=== PATIENT | female | born 1955 | race Caucasian/White ===

== ENCOUNTER 2019-07-09 18:16 | Emergency (ER) | payer BC, SELFPAY ==
[2019-07-09 18:17] VITALS: BP 162/105; PULSE 101; RESP 18; TEMP 36.3; O2SAT 96; BMI 30.7
--- NOTE | 2019-07-09 18:32 | ED.DCSUM_ITS ---
History of Present Illness Chief Complaint: GI Bleed Informant: Patient Onset: Today Context: Sudden Onset Timing: Continuous Current Severity: Mild Maximum Severity: Moderate Narrative: The patient is a 64-year-old female with no significant medical history and on no daily medications that presents to the emergency department with bright red blood per rectum. The patient has a history of prior GI bleed thought to be secondary to diverticulosis. She was admitted in 2017 for the same. She underwent colonoscopy which showed evidence of diverticular bleeding, but no other abnormalities. She states that her symptoms returned today. She states she was moving her bowels and noticed bright red blood with clots. She denies any pain. She denies any fevers or chills. She is otherwise been in her normal state of health. Prior similar symptoms: Yes Recent Illness/Hospitalization: No Past Medical History - Allergies and Home Meds Allergies/Adverse Reactions: Allergies No Known Allergies Allergy (Verified 07/09/19 18:20) Primary Care Physician: Paxton Escobedo MD [NON-STAFF] - Prior records reviewed: Yes Past Medical History: None Surgical History: adenoidectomy, - - no egd or colonoscopies, basal cell cancer removed from forehead Smoking Status: Never smoker - Family History Maternal Family History: Reports: Dementia, Heart Disease, Hypertension Paternal Family History: Reports: Heart Disease, Hypertension, - - bladder cancer Review of Systems General: Denies: Chills, Fever, Sweats Eyes: Denies: Visual changes - bilaterally, Diplopia ENT: Denies: Rhinorrhea, Sore throat Cardiovascular: Denies: Chest pain, Palpitations Respiratory: Denies: Dyspnea, Cough, Dyspnea on exertion Gastrointestinal: Reports: Hematochezia. Denies: Abdominal pain, Nausea, Vomiting, Diarrhea, Melena Genitourinary: Denies: Dysuria, Hematuria, Frequency Musculoskeletal: Denies: Back pain, Extremity Pain Skin: Denies: Rash, Wounds Neurological: Denies: Headache, Weakness, Numbness Physical Exam Vital Signs/Narrative: Vital Signs Temp Pulse Resp BP Pulse Ox 07/09/19 18:17 97.3 F L 101 H 18 162/105 H 96 Inital Vital Signs reviewed: Yes General: Well nourished, Well developed, No Acute Distress Head: Normocephalic, Atraumatic Eyes: Perrl, EOMI ENT: Moist mucous membranes, No rhinorrhea Neck: Supple, Nontender Cardiovascular: Regular rate, Regular rhythm, No murmurs Respiratory: No distress, CTA bilaterally, Chest nontender Abdomen: Soft, Nontender, Nondistended, Normal bowel sounds Back: Nontender, Normal Inspection Extremities: Nontender, No edema Skin: Normal color, No rash Neurological: Alert, Oriented x3, Cranial nerves II-XII grossly intact, Normal Strength, Normal Sensation Psychological: Normal affect, Normal Mood Diagnostic/Tx/Re-eval Clinical Impression(s) from Imaging Studies Abdomen/Pelvis CT 07/09/19 19:18 IMPRESSION: 1. 1.3 cm left adrenal nodule most likely representing a benign adenoma, stable in the interval. 2. Small bilateral renal cysts. 3. Small hiatal hernia. 4. Diffuse colonic diverticulosis most severely affecting the sigmoid. There is no evidence of associated diverticulitis. 5. Small fat-containing umbilical hernia. 6. Assessment of bowel is limited as oral contrast was not administered. Electronically Signed: Memo López MD at 20:18 EDT , Service support , Abnormal Lab Results 07/09/19 07/09/19 07/09/19 18:32 18:32 18:32 WBC 15.2 H RBC 4.46 Hgb 13.1 Hct 40.2 MCV 90.1 MCH 29.4 MCHC 32.6 RDW Std Deviation 46.0 H RDW Coeff of Petar 13.9 Plt Count 429 MPV 9.9 Immature Gran % (Auto) 0.500 Neut % (Auto) 52.1 Lymph % (Auto) 38.2 [place] % (Auto) 6.9 Eos % (Auto) 1.9 Baso % (Auto) 0.4 Absolute Neuts (auto) 7.9 H Absolute Lymphs (auto) 5.81 H Nucleated RBC % 0 Differential Comment SCANNED PT 13.5 INR 1.0 APTT 29.5 Sodium 139 Potassium 3.3 L Chloride 106 Carbon Dioxide 24.0 Anion Gap 9 BUN 13 Creatinine 0.67 Estim Creat Clear Calc 67.09 Est GFR (MDRD) Af Amer 114 Est GFR (MDRD) Non-Af 94 BUN/Creatinine Ratio 19.4 Glucose 113 H Lactic Acid Calcium 8.4 L Total Bilirubin 0.20 AST 29 ALT 29 Alkaline Phosphatase 69 Total Protein 7.6 Albumin 3.2 Globulin 4.4 H Albumin/Globulin Ratio 0.7 L Blood Type Antibody Screen 07/09/19 07/09/19 18:32 19:10 WBC RBC Hgb Hct MCV MCH MCHC RDW Std Deviation RDW Coeff of Petar Plt Count MPV Immature Gran % (Auto) Neut % (Auto) Lymph % (Auto) [place] % (Auto) Eos % (Auto) Baso % (Auto) Absolute Neuts (auto) Absolute Lymphs (auto) Nucleated RBC % Differential Comment PT INR APTT Sodium Potassium Chloride Carbon Dioxide Anion Gap BUN Creatinine Estim Creat Clear Calc Est GFR (MDRD) Af Amer Est GFR (MDRD) Non-Af BUN/Creatinine Ratio Glucose Lactic Acid 1.6 Calcium Total Bilirubin AST ALT Alkaline Phosphatase Total Protein Albumin Globulin Albumin/Globulin Ratio Blood Type A POSITIVE Antibody Screen NEGATIVE - Medical Decision Making The patient presents to the emergency department with lower GI bleeding. There was some old gross blood visible on rectal exam, no active bleeding. She does have a history of diverticulosis and has had bleeding from this in the past. She is on no anticoagulants. Orthostatics were obtained were unremarkable. Screening lab work shows a mild leukocytosis, but hemoglobin is normal. The patient underwent CT imaging which shows diverticulosis, but no evidence of diverticulitis. She is had no further bleeding. Again, the patient is not on anticoagulants. She is had no further bleeding. She wants to do outpatient follow-up and at this point, I do feel that this is reasonable. She was counseled that if her bleeding persists or returns that she should return to the emergency department. She is going to follow-up with her GI doctor. Impression 1. Stable lower GI bleed ED Disposition - Plan for ED Patient: Instructions: Diverticulosis Referrals: Paxton Escobedo MD [NON-STAFF] -
[2019-07-09 19:12] LABS: Absolute Lymphocyte Count 5.81 X10^3/uL (0.83-4.51); Absolute Neutrophil Count 7.9 X10^3/uL (2.0-7.7); Basophil# 0.06 X10^3/uL; Basophil% 0.4 % (0-1); Eosinophil# 0.29 X10^3/uL; Eosinophils% 1.9 % (0-5); Hematocrit 40.2 % (37-47); Hemoglobin 13.1 g/dL (12.0-15.0); Lymphocyte # 5.81 X10^3/ul (4.0); Lymphocyte % 38.2 % (19-41); Mean Corp Hgb Conc 32.6 g/dL (32-36); Mean Corpuscular Hgb 29.4 pg (27.0-32.0); Mean Corpuscular Volume 90.1 fL (81-99); Mean Platelet Vol. 9.9 fl (6.2-12.0); Monocyte# 1.05 X10^3/uL; Monocyte% 6.9 % (0-10); NRBC Flagged by Analyzer 0 % (0-5); Neutrophil # 7.92 X10^3/uL (2.7-7.7); Neutrophil % 52.1 % (47-70); POSITIVE DIFFERENTIAL YES; Platelet Count 429 K/mm3 (150-450); RBC Distribution Width CV 13.9 % (11.6-14.6); Red Blood Count 4.46 M/mm3 (4.2-5.4); White Blood Count 15.2 K/mm3 (4.4-11.0)
[2019-07-09 19:14] LABS: Differential Indicated SCAN CRITERIA MET
--- NOTE | 2019-07-09 19:18 | CT_ITS ---
STUDY: CT ABDOMEN AND PELVIS WITH CONTRAST REASON FOR EXAM: Female, 64 years old. RECTAL BLEEDING W/ CLOTS X 4 TODAY H/O DIVERTICULITIS RADIATION DOSAGE (If Supplied By Facility): CTDIvol = ( 14.56 ) mGy, DLP = ( 810.36 ) mGycm TECHNIQUE: Transaxial images were obtained from the dome of the diaphragm to the symphysis pubis without oral contrast. IV 100mL Isovue-300 was administered. Sagittal and coronal images were reconstructed. Individualized dose optimization techniques were used for this CT. COMPARISON: Prior study of 07/13/2016 FINDINGS: The visualized lung bases are unremarkable. The visualized portions of the heart are within normal limits. Normal liver. Normal gallbladder and extrahepatic biliary system. Normal spleen. Normal pancreas. There is a 1.3 cm left adrenal nodule most likely representing a benign adenoma, stable in the interval. There is a 1.1 cm right renal cyst. There is an 8 mm cyst of the left kidney. There is a small hiatal hernia. Normal small intestine. There is diffuse colonic diverticulosis most severely affecting the sigmoid. There is no evidence of associated diverticulitis. The appendix is visualized and appears normal. There are calcified plaques of the abdominal aorta. Normal inferior vena cava. Normal retroperitoneum. Normal urinary bladder. The uterus and adnexal structures are unremarkable. There is a small umbilical hernia containing fat. There is endplate spondylosis of the visualized thoracolumbar spine. CT/Abdomen/Pelvis W IV Cont ONLY IMPRESSION: 1. 1.3 cm left adrenal nodule most likely representing a benign adenoma, stable in the interval. 2. Small bilateral renal cysts. 3. Small hiatal hernia. 4. Diffuse colonic diverticulosis most severely affecting the sigmoid. There is no evidence of associated diverticulitis. 5. Small fat-containing umbilical hernia. 6. Assessment of bowel is limited as oral contrast was not administered. Electronically Signed: Memo López MD at 20:18 EDT , Service support ,
[2019-07-09] MEDS: 0.9% Normal Saline 1,000 ML 1000 ML IV (19:20)
[2019-07-09 19:24] LABS: Partial Thromboplast Time 29.5 Seconds (24.1-36.2); Prothrombin Time (Protime)PT. 13.5 SECONDS (11.7-14.9)
[2019-07-09 19:31] LABS: ALB/GLOB Ratio 0.7 RATIO (0.9-2.4); AST(SGOT) 29 U/L (15-37); Alanine Aminotransfer ALT/SGPT 29 U/L (13-56); Albumin, Serum 3.2 g/dL (3.2-5.0); Alkaline Phosphatase 69 U/L (45-117); Anion Gap 9 (5-15); BUN 13 mg/dL (7-18); BUN/Creat Ratio 19.4 RATIO (10-20); Calcium,Total 8.4 mg/dL (8.5-10.1); Chloride 106 mmol/L (98-107); Creatinine, Serum 0.67 mg/dL (0.55-1.02); EST Glomerular Filtration Rate 94 mL/min (>60); Est Glom Filt Rate - Afr Amer 114 mL/min (>60); Estimated Creatinine Clearance 67.09 ml/min; Globulin 4.4 g/dL (2.2-4.2); Glucose 113 mg/dL (74-106); Potassium 3.3 mmol/L (3.5-5.1); Protein, Total 7.6 g/dL (6.4-8.2); Sodium Level 139 mmol/L (136-145)
[2019-07-09 19:44] LABS: Differential Comment SCANNED
[2019-07-09 19:51] LABS: Lactic Acid 1.6 mmol/L (0.4-1.9)
[2019-07-09 21:18] VITALS: BP 129/86; PULSE 84; RESP 16; O2SAT 95
== END 2019-07-09 21:19 | disposition home or self-care (01) ==
LOC: ED 18:36
PROVIDERS: Emergency Provider Emergency Medicine
DX: K92.2 Gastrointestinal hemorrhage, unspecified (principal)
CPT/HCPCS: 74177; 80053; 83605; 85025; 85610; 85730; 86850; 86900; 86901; 96360; 96361; 99283; J7030; Q9967; A4216

== ENCOUNTER → 2021-04-27 12:00 | Outpatient (CLI) | payer MEDICARE, BC, SELFPAY ==
--- NOTE | 2021-04-27 12:03 | EKG12_ITS ---
Test Reason : HTN Blood Pressure : / mmHG Vent. Rate : 068 BPM Atrial Rate : 068 BPM P-R Int : 164 ms QRS Dur : 086 ms QT Int : 398 ms P-R-T Axes : 030 -12 022 degrees QTc Int : 423 ms Normal sinus rhythm Inferior infarct , age undetermined Abnormal ECG Confirmed by CAN ZHANG, BETSY ([id number]), book editor MI EDWARDS ([id number]) on 04/28/2021 10:07:01 AM Referred By: Danie Alberto Confirmed By:BETSY NORTH MD
[2021-04-27 13:01] LABS: Absolute Neutrophil Count 7.6 X10^3/uL (2.0-7.7); Basophil# 0.04 X10^3/uL; Basophil% 0.3 % (0-1); Eosinophil# 0.11 X10^3/uL; Eosinophils% 0.9 % (0-5); Hematocrit 44.4 % (37-47); Hemoglobin 14.3 g/dL (12.0-15.0); Lymphocyte % 27.9 % (19-41); Mean Corp Hgb Conc 32.2 g/dL (32-36); Mean Corpuscular Hgb 29.4 pg (27.0-32.0); Mean Corpuscular Volume 91.4 fL (81-99); Mean Platelet Vol. 9.6 fl (6.2-12.0); Monocyte# 0.69 X10^3/uL; Monocyte% 5.8 % (0-10); NRBC Flagged by Analyzer 0 % (0-5); Neutrophil % 64.5 % (47-70); Platelet Count 465 K/mm3 (150-450); RBC Distribution Width CV 14.3 % (11.6-14.6); RBC Distribution Width SD 48.2 fl (35.1-43.9); Red Blood Count 4.86 M/mm3 (4.2-5.4); White Blood Count 11.8 K/mm3 (4.4-11.0)
[2021-04-27 13:42] LABS: ALB/GLOB Ratio 0.7 RATIO (0.9-2.4); AST(SGOT) 20 U/L (15-37); Alanine Aminotransfer ALT/SGPT 27 U/L (13-56); Albumin, Serum 3.4 g/dL (3.2-5.0); Alkaline Phosphatase 73 U/L (45-117); Anion Gap 7 (5-15); BUN 14 mg/dL (7-18); BUN/Creat Ratio 19.7 RATIO (10-20); Calcium,Total 8.8 mg/dL (8.5-10.1); Chloride 100 mmol/L (98-107); Cholesterol 187 mg/dL (200); Creatinine, Serum 0.71 mg/dL (0.55-1.02); EST Glomerular Filtration Rate 88 mL/min (>60); Est Glom Filt Rate - Afr Amer 106 mL/min (>60); Globulin 4.9 g/dL (2.2-4.2); Glucose 103 mg/dL (74-106); High Density Lipoprotein 39 mg/dL; Potassium 3.8 mmol/L (3.5-5.1); Protein, Total 8.3 g/dL (6.4-8.2); Sodium Level 138 mmol/L (136-145); Triglycerides 192 mg/dL; Very Low Density Lipoprotein 38 mg/dL (5-40)
== END ==
PROVIDERS: PCP Internal Medicine; Referring Provider Internal Medicine; Visit Provider Internal Medicine
DX: I10 Essential (primary) hypertension (principal)
CPT/HCPCS: 36415; 80053; 80061; 85025; 93005

== ENCOUNTER → 2021-08-24 | Outpatient (CLI) | payer MEDICARE, BC, SELFPAY ==
[2021-08-24 12:06] LABS: Anion Gap 5 (5-15); BUN 19 mg/dL (7-18); BUN/Creat Ratio 18.4 RATIO (10-20); Calcium,Total 8.7 mg/dL (8.5-10.1); Chloride 104 mmol/L (98-107); Creatinine, Serum 1.03 mg/dL (0.55-1.02); EST Glomerular Filtration Rate 57 mL/min (>60); Est Glom Filt Rate - Afr Amer 69 mL/min (>60); Glucose 139 mg/dL (74-106); Sodium Level 138 mmol/L (136-145)
== END | disposition home or self-care (01) ==
LOC: LAB 10:17
PROVIDERS: PCP Internal Medicine; Referring Provider Internal Medicine; Visit Provider Internal Medicine
DX: I10 Essential (primary) hypertension (principal)
CPT/HCPCS: 36415; 80048

== ENCOUNTER → 2021-11-23 | Outpatient (CLI) | payer MEDICARE, BC, SELFPAY ==
[2021-11-23 12:59] LABS: Anion Gap 6 (5-15); BUN 22 mg/dL (7-18); Chloride 102 mmol/L (98-107); Creatinine, Serum 1.05 mg/dL (0.55-1.02); EST Glomerular Filtration Rate 56 mL/min (>60); Est Glom Filt Rate - Afr Amer 67 mL/min (>60); Glucose 103 mg/dL (74-106); Potassium 4.1 mmol/L (3.5-5.1); Sodium Level 136 mmol/L (136-145)
== END | disposition home or self-care (01) ==
LOC: LAB 11:22
PROVIDERS: PCP Internal Medicine; Referring Provider Internal Medicine; Visit Provider Internal Medicine
DX: I10 Essential (primary) hypertension (principal)
CPT/HCPCS: 36415; 80048

== ENCOUNTER → 2022-03-02 | Outpatient (CLI) | payer MEDICARE, BC, SELFPAY ==
[2022-03-02 11:03] LABS: Hemoglobin A1c 6.1 % (3.8-5.6)
[2022-03-02 11:04] LABS: Anion Gap 6 (5-15); BUN 14 mg/dL (7-18); Calcium,Total 9.2 mg/dL (8.5-10.1); Chloride 104 mmol/L (98-107); Creatinine, Serum 0.82 mg/dL (0.55-1.02); EST Glomerular Filtration Rate 74 mL/min (>60); Est Glom Filt Rate - Afr Amer 89 mL/min (>60); Glucose 112 mg/dL (74-106); Potassium 4.4 mmol/L (3.5-5.1); Sodium Level 137 mmol/L (136-145)
== END | disposition home or self-care (01) ==
LOC: LAB 10:26
PROVIDERS: PCP Internal Medicine; Referring Provider Internal Medicine; Visit Provider Internal Medicine
DX: I10 Essential (primary) hypertension (principal); R73.03 Prediabetes
CPT/HCPCS: 36415; 80048; 83036

== ENCOUNTER → 2022-07-01 | Outpatient (CLI) | payer MEDICARE, BC, SELFPAY ==
[2022-07-01 12:40] LABS: Absolute Lymphocyte Count 2.89 X10^3/uL (0.83-4.51); Basophil# 0.05 X10^3/uL; Basophil% 0.5 % (0-1); Eosinophil# 0.12 X10^3/uL; Eosinophils% 1.1 % (0-5); Hematocrit 42.9 % (37-47); Hemoglobin 13.7 g/dL (12.0-15.0); Lymphocyte # 2.89 X10^3/ul (0.83-4.51); Mean Corp Hgb Conc 31.9 g/dL (32-36); Mean Corpuscular Hgb 28.8 pg (27.0-32.0); Mean Corpuscular Volume 90.1 fL (81-99); Monocyte# 0.64 X10^3/uL; NRBC Flagged by Analyzer 0 % (0-5); Neutrophil # 6.97 X10^3/uL (2.7-7.7); Neutrophil % 64.9 % (47-70); Platelet Count 431 K/mm3 (150-450); RBC Distribution Width CV 14.1 % (11.6-14.6); RBC Distribution Width SD 46.6 fl (35.1-43.9); Red Blood Count 4.76 M/mm3 (4.2-5.4); White Blood Count 10.7 K/mm3 (4.4-11.0)
[2022-07-01 13:17] LABS: Anion Gap 7 (5-15); BUN 11 mg/dL (7-18); BUN/Creat Ratio 15.3 RATIO (10-20); Calcium,Total 9.2 mg/dL (8.5-10.1); Chloride 105 mmol/L (98-107); Cholesterol 202 mg/dL (200); Creatinine, Serum 0.72 mg/dL (0.55-1.02); EST Glomerular Filtration Rate 86 mL/min (>60); Est Glom Filt Rate - Afr Amer 104 mL/min (>60); Glucose 113 mg/dL (74-106); High Density Lipoprotein 46 mg/dL; Potassium 4.2 mmol/L (3.5-5.1); Sodium Level 138 mmol/L (136-145); Triglycerides 152 mg/dL; Very Low Density Lipoprotein 30 mg/dL (5-40)
[2022-07-01 13:56] LABS: Hemoglobin A1c 5.9 % (3.8-5.6)
== END | disposition home or self-care (01) ==
LOC: LAB 11:17
PROVIDERS: PCP Internal Medicine; Referring Provider Internal Medicine; Visit Provider Internal Medicine
DX: R73.03 Prediabetes (principal); I10 Essential (primary) hypertension
CPT/HCPCS: 36415; 80048; 80061; 83036; 85025

== ENCOUNTER → 2022-07-22 | Outpatient (CLI) | payer MEDICARE, BC, SELFPAY ==
--- NOTE | 2022-07-22 08:36 | BD_ITS ---
STUDY: DUAL ENERGY X-RAY ABSORPTIOMETRY / DXA REASON FOR EXAM: Female, 67 years old. Post Menopausal TECHNIQUE: Bone Mineral Density (BMD) measurements of lumbar spine and bilateral hips were obtained. COMPARISON: None. FINDINGS: Lumbar Spine (L1-L4): g/cm2 (0.865) / T-score (-2.1) / Z-score (-0.1) Findings are suggestive of osteopenia with a high fracture risk. Left Femur Total: g/cm2 (0.730) / T-score (-1.7) / Z-score (-0.4) Left Femoral Neck: g/cm2 (0.565) / T-score (-2.6) / Z-score (-0.9) Right Femur Total: g/cm2 (0.769) / T-score (-1.4) / Z-score (-0.1) Right Femoral Neck: g/cm2 (0.588) / T-score (-2.4) / Z-score (-0.7) BD/Dexa Bone Density Study IMPRESSION: The patient is considered osteoporotic as outlined below according to World Rudy Organization (WHO) criteria with a high fracture risk. Reference Information: The T-score is the number of standard deviations above or below the standard which is normal for young adults at their peak bone mineral density. The World Health Organization (WHO) interprets the T-scores as follows: Above -1 Normal bone density Between -1 and -2.5 Osteopenia Equal to / or below -2.5 Osteoporosis As a practical clinical guideline, osteopenia may be graded as follows: Mild -1 through -1.5 Moderate -1.6 through -2.0 Severe -2.1 through -2.4 The Z-score is the number of standard deviations above or below age-matched controls. A Z-score of less than -1.5 would be considered abnormal. References: 1. NIH Osteoporosis and Related Bone Diseases www osteo.org 2. International Society for Clinical Densitometry www iscd.org 3. National Osteoporosis Foundation www nof.org Electronically Signed: Vicente Marroquin MD at 8:23 EDT ,
== END | disposition home or self-care (01) ==
LOC: OPBD 08:29
PROVIDERS: PCP Internal Medicine; Referring Provider Internal Medicine; Visit Provider Internal Medicine
DX: M81.0 Age-related osteoporosis without current pathological fracture (principal); Z78.0 Asymptomatic menopausal state
CPT/HCPCS: 77080

== ENCOUNTER → 2022-08-04 | Outpatient (CLI) | payer MEDICARE, BC, SELFPAY ==
[2022-08-04 13:58] LABS: ALB/GLOB Ratio 0.8 RATIO (0.9-2.4); AST(SGOT) 14 U/L (15-37); Alanine Aminotransfer ALT/SGPT 17 U/L (13-56); Albumin, Serum 3.5 g/dL (3.2-5.0); Alkaline Phosphatase 76 U/L (45-117); Anion Gap 6 (5-15); BUN 16 mg/dL (7-18); Calcium,Total 9.2 mg/dL (8.5-10.1); Chloride 103 mmol/L (98-107); Creatinine, Serum 0.76 mg/dL (0.55-1.02); EST Glomerular Filtration Rate 81 mL/min (>60); Est Glom Filt Rate - Afr Amer 97 mL/min (>60); Globulin 4.5 g/dL (2.2-4.2); Glucose 97 mg/dL (74-106); Potassium 4.1 mmol/L (3.5-5.1); Sodium Level 135 mmol/L (136-145)
== END | disposition home or self-care (01) ==
LOC: LAB 12:12
PROVIDERS: PCP Internal Medicine; Referring Provider Internal Medicine; Visit Provider Internal Medicine
DX: I10 Essential (primary) hypertension (principal)
CPT/HCPCS: 36415; 80053

== ENCOUNTER → 2023-02-14 | Outpatient (CLI) | payer MEDICARE, BC, SELFPAY ==
[2023-02-14 16:43] LABS: ALB/GLOB Ratio 0.8 RATIO (0.9-2.4); AST(SGOT) 20 U/L (15-37); Alanine Aminotransfer ALT/SGPT 25 U/L (13-56); Albumin, Serum 3.4 g/dL (3.2-5.0); Alkaline Phosphatase 49 U/L (45-117); Anion Gap 6 (5-15); BUN 17 mg/dL (7-18); Calcium,Total 8.9 mg/dL (8.5-10.1); Chloride 103 mmol/L (98-107); Creatinine, Serum 1.06 mg/dL (0.55-1.02); EST Glomerular Filtration Rate 55 mL/min (>60); Est Glom Filt Rate - Afr Amer 66 mL/min (>60); Globulin 4.4 g/dL (2.2-4.2); Glucose 113 mg/dL (74-106); Potassium 4.3 mmol/L (3.5-5.1); Protein, Total 7.8 g/dL (6.4-8.2); Sodium Level 137 mmol/L (136-145); Vitamin D,25 Hydroxy 29.6 ng/mL
== END | disposition home or self-care (01) ==
LOC: BIMLAB 15:38
PROVIDERS: PCP Internal Medicine; Visit Provider Internal Medicine
DX: M81.0 Age-related osteoporosis without current pathological fracture (principal); I10 Essential (primary) hypertension
CPT/HCPCS: 36415; 80053; 82306

== ENCOUNTER → 2023-05-11 | Outpatient (CLI) | payer MEDICARE, BC, SELFPAY ==
[2023-05-11 10:16] LABS: Anion Gap 5 (5-15); BUN 18 mg/dL (7-18); BUN/Creat Ratio 19.7 RATIO (10-20); Calcium,Total 9.5 mg/dL (8.5-10.1); Chloride 107 mmol/L (98-107); Creatinine, Serum 0.91 mg/dL (0.55-1.02); EST Glomerular Filtration Rate 65 mL/min (>60); Est Glom Filt Rate - Afr Amer 79 mL/min (>60); Glucose 125 mg/dL (74-106); Potassium 4.3 mmol/L (3.5-5.1); Sodium Level 137 mmol/L (136-145)
[2023-05-11 15:35] LABS: Hemoglobin A1c 5.9 % (3.8-5.6)
== END | disposition home or self-care (01) ==
LOC: LAB 08:50
PROVIDERS: PCP Internal Medicine; Referring Provider Internal Medicine; Visit Provider Internal Medicine
DX: R73.03 Prediabetes (principal); I10 Essential (primary) hypertension; M81.0 Age-related osteoporosis without current pathological fracture
CPT/HCPCS: 36415; 80048; 82306; 83036

== ENCOUNTER → 2023-08-29 | Outpatient (CLI) | payer MEDICARE, BC, SELFPAY ==
[2023-08-29 09:44] LABS: Absolute Lymphocyte Count 2.68 X10^3/uL (0.83-4.51); Absolute Neutrophil Count 5.5 X10^3/uL (2.0-7.7); Basophil# 0.08 X10^3/uL; Basophil% 0.9 % (0-1); Eosinophil# 0.32 X10^3/uL; Eosinophils% 3.5 % (0-5); Hematocrit 41.1 % (37-47); Hemoglobin 13.4 g/dL (12.0-15.0); Lymphocyte # 2.68 X10^3/ul (0.83-4.51); Mean Corp Hgb Conc 32.6 g/dL (32-36); Mean Corpuscular Hgb 29.8 pg (27.0-32.0); Mean Corpuscular Volume 91.3 fL (81-99); Mean Platelet Vol. 9.7 fl (6.2-12.0); Monocyte# 0.63 X10^3/uL; Monocyte% 6.8 % (0-10); NRBC Flagged by Analyzer 0 % (0-5); Neutrophil # 5.48 X10^3/uL (2.7-7.7); Neutrophil % 59.4 % (47-70); Platelet Count 374 K/mm3 (150-450); RBC Distribution Width CV 13.8 % (11.6-14.6); RBC Distribution Width SD 46.5 fl (35.1-43.9); White Blood Count 9.2 K/mm3 (4.4-11.0)
[2023-08-29 10:36] LABS: Vitamin D,25 Hydroxy 32.3 ng/mL
[2023-08-29 11:00] LABS: ALB/GLOB Ratio 0.9 RATIO (0.9-2.4); AST(SGOT) 16 U/L (15-37); Alanine Aminotransfer ALT/SGPT 14 U/L (13-56); Albumin, Serum 3.5 g/dL (3.2-5.0); Alkaline Phosphatase 38 U/L (45-117); Anion Gap 6 (5-15); BUN 21 mg/dL (7-18); BUN/Creat Ratio 22.8 RATIO (10-20); Calcium,Total 8.9 mg/dL (8.5-10.1); Chloride 108 mmol/L (98-107); Cholesterol 202 mg/dL (200); Creatinine, Serum 0.92 mg/dL (0.55-1.02); EST Glomerular Filtration Rate 64 mL/min (>60); Est Glom Filt Rate - Afr Amer 78 mL/min (>60); Globulin 4.1 g/dL (2.2-4.2); Glucose 124 mg/dL (74-106); High Density Lipoprotein 46 mg/dL; Potassium 4.1 mmol/L (3.5-5.1); Protein, Total 7.6 g/dL (6.4-8.2); Sodium Level 137 mmol/L (136-145); Triglycerides 142 mg/dL; Very Low Density Lipoprotein 28 mg/dL (5-40)
[2023-08-29 12:05] LABS: Hemoglobin A1c 5.7 % (3.8-5.6)
== END | disposition home or self-care (01) ==
LOC: LAB 08:54
PROVIDERS: PCP Internal Medicine; Referring Provider Internal Medicine; Visit Provider Internal Medicine
DX: I10 Essential (primary) hypertension (principal); M81.0 Age-related osteoporosis without current pathological fracture; R73.03 Prediabetes
CPT/HCPCS: 36415; 80053; 80061; 82306; 83036; 85025

== ENCOUNTER → 2023-12-30 | Outpatient (CLI) | payer MEDICARE, BC, SELFPAY ==
[2023-12-30 11:57] LABS: Anion Gap 6 (5-15); BUN 14 mg/dL (7-18); BUN/Creat Ratio 18.8 RATIO (10-20); Calcium,Total 9.2 mg/dL (8.5-10.1); Chloride 107 mmol/L (98-107); Creatinine, Serum 0.75 mg/dL (0.55-1.02); EST Glomerular Filtration Rate 82 mL/min (>60); Est Glom Filt Rate - Afr Amer 99 mL/min (>60); Glucose 103 mg/dL (74-106); Potassium 3.9 mmol/L (3.5-5.1); Sodium Level 138 mmol/L (136-145)
[2023-12-30 12:01] LABS: Vitamin D,25 Hydroxy 35.9 ng/mL
[2023-12-30 12:29] LABS: Hemoglobin A1c 6.1 % (3.8-5.6)
== END | disposition home or self-care (01) ==
LOC: LAB 10:35
PROVIDERS: PCP Internal Medicine; Referring Provider Internal Medicine; Visit Provider Internal Medicine
DX: R73.9 Hyperglycemia, unspecified (principal); M81.0 Age-related osteoporosis without current pathological fracture; I10 Essential (primary) hypertension
CPT/HCPCS: 36415; 80048; 82306; 83036

== ENCOUNTER → 2024-05-09 | Outpatient (CLI) | payer MEDICARE, BC, SELFPAY ==
[2024-05-09 16:42] LABS: Absolute Lymphocyte Count 3.08 X10^3/uL (0.83-4.51); Absolute Neutrophil Count 6.2 X10^3/uL (2.0-7.7); Basophil# 0.06 X10^3/uL; Basophil% 0.6 % (0-1); Hematocrit 41.4 % (37-47); Hemoglobin 13.6 g/dL (12.0-15.0); Lymphocyte # 3.08 X10^3/ul (0.83-4.51); Lymphocyte % 30.5 % (19-41); Mean Corp Hgb Conc 32.9 g/dL (32-36); Mean Corpuscular Hgb 29.7 pg (27.0-32.0); Mean Corpuscular Volume 90.4 fL (81-99); Mean Platelet Vol. 9.5 fl (6.2-12.0); Monocyte# 0.66 X10^3/uL; Monocyte% 6.5 % (0-10); NRBC Flagged by Analyzer 0 % (0-5); Neutrophil # 6.17 X10^3/uL (2.7-7.7); Platelet Count 397 K/mm3 (150-450); RBC Distribution Width CV 13.5 % (11.6-14.6); RBC Distribution Width SD 44.7 fl (35.1-43.9); Red Blood Count 4.58 M/mm3 (4.2-5.4); White Blood Count 10.1 K/mm3 (4.4-11.0)
[2024-05-09 17:19] LABS: ALB/GLOB Ratio 0.9 RATIO (0.9-2.4); AST(SGOT) 15 U/L (15-37); Alanine Aminotransfer ALT/SGPT 23 U/L (13-56); Albumin, Serum 3.6 g/dL (3.2-5.0); Alkaline Phosphatase 46 U/L (45-117); Anion Gap 6 (5-15); BUN 20 mg/dL (7-18); BUN/Creat Ratio 20.8 RATIO (10-20); Calcium,Total 9.3 mg/dL (8.5-10.1); Chloride 102 mmol/L (98-107); Cholesterol 211 mg/dL (200); Creatinine, Serum 0.96 mg/dL (0.55-1.02); EST Glomerular Filtration Rate 61 mL/min (>60); Est Glom Filt Rate - Afr Amer 74 mL/min (>60); Glucose 107 mg/dL (74-106); High Density Lipoprotein 52 mg/dL; Protein, Total 7.6 g/dL (6.4-8.2); Sodium Level 135 mmol/L (136-145); Triglycerides 152 mg/dL; Very Low Density Lipoprotein 30 mg/dL (5-40)
[2024-05-09 18:56] LABS: Vitamin D,25 Hydroxy 31.7 ng/mL
[2024-05-09 19:54] LABS: Hemoglobin A1c 6.2 % (3.8-5.6)
== END | disposition home or self-care (01) ==
LOC: BIMLAB 15:24
PROVIDERS: PCP Internal Medicine; Referring Provider Internal Medicine; Visit Provider Internal Medicine
DX: M81.0 Age-related osteoporosis without current pathological fracture (principal); I10 Essential (primary) hypertension; R73.03 Prediabetes
CPT/HCPCS: 36415; 80053; 80061; 82306; 83036; 85025

== ENCOUNTER → 2024-09-04 | Outpatient (CLI) | payer MEDICARE, BC, SELFPAY | END | disposition home or self-care (01) | LOC: LAB 11:28 | PROVIDERS: PCP Internal Medicine; Referring Provider Internal Medicine; Visit Provider Internal Medicine | DX: Z00.00 Encounter for general adult medical examination without abnormal findings (principal) ==

== ENCOUNTER → 2024-09-13 | Outpatient (CLI) | payer MEDICARE, BC, SELFPAY ==
--- NOTE | 2024-09-13 15:00 | BD_ITS ---
PROCEDURE: DEXA BONE DENSITY STUDY 09/13/2024 REASON FOR EXAM: OSTEOPOROSIS F, age 69 y/o . Postmenopausal. TECHNIQUE: DXA scan of sites with data reported below. REFERENCE LINKS: ISCD Adult Positions COMPARISON: None FINDINGS: BMD and T-SCORES Lumbar spine: 0.918 g/cm2, T-score -1.2 Levels: L1 through L4 Left femoral neck: 0.642 g/cm2, T-score -1.9 Femoral neck comparison data not recommended for monitoring change. Left total hip: 0.766 g/cm2, T-score -1.4 Change from prior: Improvement of 5%. Right femoral neck: 0.645 g/cm2, T-score -1.8 Femoral neck comparison data not recommended for monitoring change. Right total hip: 0.764 g/cm2, T-score -1.5 Change from prior: Loss of 0.6%. The World Health Organization has defined the following categories based on bone density: Normal bone density: T-score equal to or greater than -1.0 Osteopenia: T-score between -1.0 and -2.5 Osteoporosis: T-score equal to or less than -2.5 The patient does meet the pharmacological treatment recommendations for prevention of osteoporosis. BD/Dexa Bone Density Study IMPRESSION: OSTEOPENIA. Recommend follow-up as clinically warranted. Reading Location: [id number]
== END | disposition home or self-care (01) ==
LOC: OPBD 14:49
PROVIDERS: PCP Internal Medicine; Referring Provider Internal Medicine; Visit Provider Internal Medicine
DX: M81.0 Age-related osteoporosis without current pathological fracture (principal)
CPT/HCPCS: 77080

== ENCOUNTER → 2024-11-29 | Outpatient (CLI) | payer MEDICARE, BC, SELFPAY ==
--- NOTE | 2024-11-29 07:40 | CT_ITS ---
PROCEDURE: CTA CHST, ABD, PEL W AND/OR WO 11/29/2024 REASON FOR EXAM: ASC AORTIC ANEURYSM, EVAL FOR THORACOABDOMINAL TECHNIQUE: Chest and abdomen CT with intravenous contrast. Coronal and Sagittal reconstruction series were provided. One or more dose reduction techniques were used (e.g., Automated exposure control, adjustment of the mA and/or kV according to patient size, use of iterative reconstruction technique. PATIENT PREPARATION: Per protocol ORAL CONTRAST TYPE: None. CONTRAST: Isovue 370 VOLUME: 100 mL RADIATION DOSE SUMMARY: CTDlvol: 12.2 mGy DLP: 838.94 mGycm COMPARISON: Prior CT scan of the chest dated October 09, 2024. FINDINGS: CT CHEST: Hardware: None Lymph nodes: No significant lymph node is seen. Heart and Vasculature: Aneurysmal dilatation of the ascending thoracic aorta with a transverse dimension of 45.4 mm. No coronary artery calcification is seen. Lungs and Airways: Mild degree of increased linear markings scattered throughout both lungs suggestive of scarring. No focal mass lesion or pulmonary infiltrate is seen. Pleura: No pleural effusion. CT ABDOMEN: Liver: Normal size. No mass. Gallbladder: No evidence of gallstones. Spleen: Normal size. Pancreas: Normal size without evidence of mass surrounding inflammation or ductal dilation. Adrenals: There is hyperplasia of the left adrenal gland. Kidneys: 1.5 cm cyst in the upper medial portion of the left kidney. No evidence of hydronephrosis. 1.6 cm cyst in the posterior medial aspect of the right kidney. Bowel: Sigmoid diverticulosis without radiographic evidence of diverticulitis. Lymph nodes: Unremarkable. Vasculature: Mild atherosclerotic plaque of the abdominal aorta. No evidence of abdominal aortic aneurysm. Peritoneum / Retroperitoneum: Unremarkable Bones: Degenerative changes of the spine. CT/CTA Chst, Abd, Pel W and/or WO IMPRESSION: Coronary artery calcification (CAC) is is absent Dilatation of the ascending thoracic aorta with a transverse dimension of 45.4 mm. No evidence of abdominal aortic aneurysm. Mild linear scarring in both lungs. Small bilateral renal cysts. Reading Location: [id number]
--- OUTSIDE RECORDS SUMMARY | 2024-11-29 07:41 | XMS RPT_ITS | CCD ---
Author Organization [facility] Care Team Providers Care Correctional Therapy Teacher Name Role Phone Dr. Danie Alberto Primary Care Provider [phone] Dr. Danie Alberto Attending Provider [phone] Dr. Danie Alberto Referring Provider [phone] Dolly ZHANG, Dr. Helton Primary Care Provider Dolly ZHANG, Dr. Helton Attending Provider [phone] Dr. Danie Alberto MD Referring Provider [phone] Dr. Bravo Solomon MD Attending Provider [phone] Dr. Bravo Solomon MD Referring Provider [phone] Farida Quinones Attending Provider [phone] Bravo Solomon Attending Unavailable Bravo Solomon Referring Unavailable Oleghe, Efewongbe Primary Care Unavailable Oleghe, Efewongbe Primary Care Unavailable Oleghe, Efewongbe Attending Unavailable Oleghe, Efewongbe Referring Unavailable Oleghe, Efewongbe Attending Unavailable Oleghe, Efewongbe Referring Unavailable Oleghe, Efewongbe Primary Care Unavailable Oleghe, Efewongbe Attending Unavailable Oleghe, Efewongbe Referring Unavailable Oleghe, Efewongbe Primary Care Unavailable Fraida Snow Attending Unavailable Farida Snow Referring Unavailable Oleghe, Efewongbe Primary Care Unavailable Oleghe, Efewongbe Attending Unavailable Oleghe, Efewongbe Referring Unavailable Oleghe, Efewongbe Primary Care Unavailable Oleghe, Efewongbe Primary Care Unavailable Oleghe, Efewongbe Attending Unavailable Oleghe, Efewongbe Referring Unavailable Oleghe, Efewongbe Attending Unavailable Oleghe, Efewongbe Referring Unavailable Oleghe, Efewongbe Primary Care Unavailable Oleghe, Efewongbe Attending Unavailable Oleghe, Efewongbe Referring Unavailable Oleghe, Efewongbe Primary Care Unavailable Farida Snow Attending Unavailable Oleghe, Efewongbe Referring Unavailable Oleghe, Efewongbe Primary Care Unavailable Oleghe, Efewongbe Primary Care Unavailable Olepatriciae, Efewongbe Attending Unavailable Olepatriciae, Efewongbe Referring Unavailable Medications Current Medications Medication Drug Class(es) Dates Sig (Normalized) Sig (Original) betamethasone 0.5 mg/ml topical cream (10 sources) Corticosteroid Start: 04-22-2021 Betamethasone Dipropionate 0.05 % cream Active 1 NMA TOPICAL DAILY as needed April 22, 2021 1:00am calcium carbonate 1500 mg oral tablet (3 sources) Start: 01-04-2024 take 1 tablet by mouth twice daily Calcium Carbonate (Calcium 600) 600 mg calcium (1,500 mg) tablet Active 600 mg PO TWICE A DAY January 04, 2024 12:00am cholecalciferol 0.05 mg oral capsule (3 sources) Vitamin D Start: 01-04-2024 take 1 capsule by mouth twice daily Cholecalciferol (Vitamin D3) 50 mcg (2,000 unit) capsule Active 50 ug PO TWICE A DAY January 04, 2024 12:00am ivermectin 10 mg/ml topical cream (16 sources) Antiparasitic, Pediculicide Start: 04-22-2021 End: 10-14-2022 Ivermectin 1 % cream Active 1 NMA TOPICAL DAILY as needed October 14, 2022 3:05pm valsartan 160 mg oral tablet (20 sources) Angiotensin 2 Receptor Jr Start: 05-04-2023 take 1 tablet by mouth once daily Valsartan Active 0 .ROUTE .COMPLEX May 04, 2023 2:04pm TAKE 1 TABLET BY MOUTH DAILY Start: 05-04-2023 take 1 tablet by shaheen once daily Valsartan Active 0 .ROUTE .COMPLEX May 04, 2023 1:04pm TAKE 1 TABLET BY MOUTH DAILY Start: 11-05-2022 End: 05-04-2023 take 1 tablet by mouth once daily Valsartan Discontinued 0 .ROUTE .COMPLEX 90 November 05, 2022 1:57pm May 04, 2023 2:04pm TAKE 1 TABLET BY MOUTH DAILY Start: 11-05-2022 End: 05-04-2023 take 1 tablet by mouth once daily Valsartan Discontinued 0 .ROUTE .COMPLEX 90 November 05, 2022 12:57pm May 04, 2023 1:04pm TAKE 1 TABLET BY MOUTH DAILY Start: 11-05-2022 take 1 tablet by shaheen once daily Valsartan Active 0 .ROUTE .COMPLEX 90 November 05, 2022 1:57pm TAKE 1 TABLET BY MOUTH DAILY Start: 07-05-2022 End: 10-29-2024 take 1 tablet by mouth once daily Valsartan 160 mg tablet Active 0 .ROUTE .COMPLEX 90 October 29, 2024 10:54am TAKE 1 TABLET BY MOUTH DAILY Completed/Discontinued Medications Medication Drug Class(es) Dates Sig (Normalized) Sig (Original) alendronic acid 70 mg oral tablet (12 sources) Bisphosphonate Start: 10-14-2022 End: 01-04-2024 take 1 tablet by mouth every week Alendronate 70 mg tablet Discontinued 70 mg PO EVERY WEEK 14 November 11, 2023 1:05pm January 04, 2024 3:04pm amLODIPine 10 mg oral tablet (16 sources) Dihydropyridine Calcium Channel Jr Start: 12-03-2021 End: 07-05-2022 take 1 tablet by mouth once daily Amlodipine 10 mg tablet Discontinued 10 mg PO DAILY 90 March 05, 2022 3:29pm July 05, 2022 9:49am clobetasol propionate 0.5 mg/ml medicated shampoo (7 sources) Corticosteroid Start: 11-14-2024 Clobetasol 0.05 % shampoo Discontinued TOPICAL November 14, 2024 12:00am Start: 02-14-2023 Clobetasol 0.0 5 % solution Active 1 NMA TOPICAL DAILY February 14, 2023 12:00am hydroCHLOROthiazide 12.5 mg oral tablet (10 sources) Thiazide Diuretic Start: 04-22-2021 End: 05-20-2021 take 1 tablet by mouth once daily in the morning Hydrochlorothiazide 12.5 mg tablet Discontinued 12.5 mg PO EVERY MORNING 30 April 22, 2021 1:00am May 20, 2021 6:33pm hydroCHLOROthiazide 25 mg / triamterene 37.5 mg oral tablet (10 sources) Potassium-spa ring Diuretic, Thiazide Diuretic Start: 05-20-2021 End: 03-05-2022 Triamterene-Hydrochloro thiazid 37.5-25 mg tablet Discontinued 1 {tbl} PO EVERY MORNING 90 2 May 20, 2021 1:00am March 05, 2022 3:27pm Start: 05-20-2021 End: 03-05-2022 take 1 tablet by mouth once daily in the morning Triamterene-Hydrochlorothiazid Discontin ued 1 TABLET PO EVERY MORNING May 20, 2021 1:00am March 05, 2022 3:27pm 24 hr metFORMIN hydrochloride 500 mg extended release oral tablet (6 sources) Biguanide Start: 02-14-2023 End: 05-18-2023 take 1 tablet by mouth once daily in the evening Metformin 500 mg tablet extended release 24 hr Discontinued 500 mg PO EVERY EVENING 60 2 February 14, 2023 12:00am May 18, 2023 5:36pm Problems Problem Classification Problem Date Documented Da te Episodic/Chronic Aortic; peripheral; and visceral artery aneurysms (2 sources) Aortic aneurysm; Translations: [Aortic aneurysm of unspecified site, without rupture] Onset: 11-27-2024 10-10-2024 Chronic Diabetes mellitus without complication (20 sources) Hyperglycemia; Translations: [Hyperglycemia, unspecified] Onset: 01-09-2024 Episodic Essential hypertension (20 sources) Essential hypertension; Translations: [Essential (primary) hypertension] Onset: 10-09-2024 Chronic Gastrointestinal hemorrhage (10 sources) Rectal hemorrhage; Translations: [Hemorrhage of anus and rectum] 07-09-2019 Episodic Osteoporosis (14 sources) Osteoporosis; Translations: [Age-related osteoporosis without current pathological fracture] Onset: 10-30-2024 10-14-2022 Chronic Other diseases of veins and lymphatics (8 sources) Venous insufficiency of leg; Translations: [Venous insufficiency (chronic) (peripheral)] 07-05-2022 Episodic Other diseases of veins and lymphatics (2 sources) Venous insufficiency (chronic) (peripheral); Translations: [Venous (peripheral) insufficiency, unspecified] 07-05-2022 Episodic Other inflammatory condition of skin (10 sources) Rosacea; Translations: [Rosacea, unspecified] 04-22-2021 Chronic Other nutritional; endocrine; and metabolic disorders (10 sources) Obese class I; Translations: [Obesity, unspecified] 04-22-2021 Chronic Other nutritional; endocrine; and metabolic disorders (1 source) Obesity, unspecified; Translations: [Obesity, unspecified] Chronic Results Test Name Value Interpretation Reference Range Facility MR/BMSOscarSANDHYARoger 11-14-2024 MR/BMSJANENE [facility] Vascular Surgery [address] [place] [address] OFFICE VISIT Date of Service: 11/14/24 MR#: [id number] Acct: [id number] Name: TATY YIN Rep #: [id number] : 1955 Provider: ROBSON Schrader Age/Sex: 69/F Location: [facility] Status: Signed Intake Vital Signs 09/06/24 15:55 11/14/24 15:22 Height 5 ft 3 in Weight: 157 lb 160 lb BMI 27.8 BP 124/78 H 137/85 H Blood Pressure Location Lt brachial Lt brachial Position Sitting Sitting Respiration 16 14 Pulse 69 71 Pulse Source Monitor Monitor Temp 96.4 F L 98.6 F Temp Source Temporal Temporal Pulse Oximetry (%) 95 94 Oxygen Delivery Method room air room air Intake Visit Reasons: AAA Chief Complaint: 4 M FU Is patient in pain?: No Allergies No Known Allergies Allergy (Verified 11/14/24 15:23) Medications ???Medication ???Instructions ???Recorded ???Confirmed ???Type betamethasone dipropionate 0.05 % 1 applic topical DAILY PRN 11/14/24 History topical cream ivermectin 1 % topical cream 1 applic topical DAILY PRN 3 11/14/24 History clobetasol 0.05 % scalp solution 1 applic topical DAILY 02/14/23 History alendronate 70 mg tablet 70 mg PO QWEEK #14 tabs 01/04/24 0 11/14/24 Rx Held on 01/04/24. Instructions: Dental concerns calcium carbonate (Calcium 600) 600 mg PO BID 01/04/24 11/14/24 Hi story cholecalciferol (vitamin D3) 50 50 mcg PO BID 01/04/24 11/14/24 Hi story mcg (2,000 unit) capsule valsartan 160 mg tablet See Rx Instructions .Route 5 11/14/24 Rx .COMPLEX #90 tabs clobetasol 0.05 % shampoo topical 11/14/24 11/14/24 History Is last menstrual period known: No Post menopausal: Yes Patient : No Have you fallen in the past year?: No PFSH Medical History Aortic aneurysm Osteoporosis Health care maintenance Venous insufficiency of both lower extremities Borderline type 2 diabetes mellitus Hyperglycemia Hyperglycemia Obesity (BMI 30.0-34.9) Psoriasis Rosacea Cataract Diverticulitis Diverticular disease Skin cancer Surgical History H/O adenoidectomy Family History (Updated 11/14/24 @ 15:22 by Allie Carolina) Father Alcohol abuse Bladder cancer Diabetes Heart disease Hypertension AAA (abdominal aortic aneurysm) Mother Arthritis Hypertension High cholesterol Aunt CVA (cerebral vascular accident) Other Cancer Social History Smoking Status: Never smoker alcohol intake: never substance use type: does not use what type of physical activity do you participate in: none HPI HPI HPI: TATY YIN, is a 69 F who presents to the office today for evaluation and management of ascending aortic aneurysm identified on recent coronary calcium score testing; radiology reported ascending aortic dilatation up to 4.9cm. She reports no prior knowledge of any personal aneurysmal disease. She does not smoke. She is not diabetic. She does have hypertension which is generally well controlled. She denies any chest pain, shortness of breath, lower extremity edema, syncope/presyncope, claudication. She reports her father had an aortic dissection and AAA requiring repair in his 70s and her mother had a congenital heart valve abnormality which require replacement in her 80s (unsure of which valve). She reports no known heart murmurs or heart disease personally. ROS General General: No weight change, appetite, fatigue, colon cancer, breast cancer or weakness HEENT HEENT: No difficulty swallowing, eye injury, eye surgery, swollen glands or hoarseness Endo Endocrine: No thyroid disease, diabetes mellitus, thyroid cancer, Hair loss, heat intolerance or cold intolerance Skin Skin: No rash or changing moles Musc Musculoskeletal: No back problems, arthritis, rheumatoid arthritis, gout or joint pain Cardio Cardiovascular: Yes high blood pressure; No murmur, pacemaker, heart disease, atrial fibrillation, heart attack, heart stent, palpitations, shortness of breath with exertion or chest pain Psych Psychiatric: No depression, anxiety or hearing voices Resp Respiratory: No shortness of breath, No sleep apnea, No cough, No COPD, No asthma, No emphysema and No wheezing Gastro Gastrointestinal: No abdominal pain, No nausea or vomiting, No diarrhea, No constipation, No blood in stool, No acid reflux, No hemorrhoids, No ulcers, No gallbladder problem and No black,tarry stools Derrick Hematologic: No blood thinners, No blood disorders, No bleeding, No anemia and No blood clots Neuro Neurologic: No system reviewed and no additional complaints, except as d (more content not included)... Normal [facility] Coronary Angiography CTon Coronary Angiography CT [facility] Imaging Services [address] [place] [address] 10/15/24 1736 MR#: [id number] Acct: [id number] Name: TATY YIN Rep #: [id number] : 1955 69 From: Bravo Solomon MD PCP: Dr. Danie Alberto MD Status:REG REF Y Location: CT Calcium Scoring Date of Study:: 10/09/24 Indications Indications: HTN Coronary Calcium Scoring: High-resolution Computed Tomographic imaging of the chest was performed on [ 10/09/24], with particular attention paid to the coronary arteries. Images from the examination were analyzed for the presence and extent of coronary artery calcification , using coronary calcium quantification software. The patient tolerated the procedure well and there were no complications. The results of the coronary calcification analysis are provided below. Findings Coronary Artery Left Main (LM): 0 Left Anterior Descending (LAD): 186 Left Circumflex (LCX): 0 Right Coronary Artery (RCA): 79.7 Total Agatston Score: 265.7 Percentile Rankin%-90% Calcium Scoring Interpretation: Different methods to categorize the overall amount of coronary plaque. Overall amount CAC SIS Visual of coronary plaque P1 Mild -100 <2 1-2 vessels with mild amount of plaque P2 Moderate 101-300 3-4 1-2 vessels with moderate amount, 3 vessels with mild amount of plaque P3 Severe 301-999 5-7 3 vessels with moderate amount, 1 vessel with severe amount of plaque P4 Extensive >1000 >8 2-3 vessels with severe amount of plaque Calcium Score: Moderate: 1-2 vessels w/moderate amt, 3 vessels w/mild amt of plaque Conclusion: Moderate two-vessel atherosclerotic plaquing. 10/15/24 1737 Date Bravo Solomon MD Cosigner Signature (if applicable): Date CC: Dr. Bravo Solomon MD; Dr. Danie Alberto MD Signed Normal [facility] Limited Chest CT Cardiac Onl [facility] 10-09-[address] Cardiac Only [facility] Imaging Services [address] [place], [place] [address] Limited Chest CT Cardiac Only MR#: [id number] Acct: [id number] Name: TATY YIN Rep #: [id number] : 1955 F 69 From: Cristi Sanchez PCP: Dr. Danie Alberto MD Status: REG REF Study: Limited Chest CT Cardiac Only Date of Exam: Exam# [id number] Ordering Dr: Danie Alberto MD PROCEDURE: LIMITED CHEST CT CARDIAC ONLY REASON FOR EXAM: CARDIAC RISK ASSESEMENT TECHNIQUE: CT for coronary artery calcium scoring. One or more dose reduction techniques were used (e.g., Automated exposure control, adjustment of the mA and/or kV according to patient size, use of iterative reconstruction technique). COMPARISON: None. CT/Limited Chest CT Cardiac Only IMPRESSION: Aneurysmal dilation of the ascending aorta is seen, measured at 4.9 cm. A small hiatal hernia is present. Limited imaging of the lungs demonstrates no acute process. No pleural effusion or pneumothorax is seen in visualized areas. No adenopathy is noted. The visualized upper abdomen demonstrates no significant abnormality. Reading Location: [address] CC: Dr. Danie Alberto MD Production Drilling Machine Operator: Signed Normal [facility] Bone density reportOrdered B y: Vicente Marroquin on 09-13-2024 Study report Skeletal system DXA [facility] Imaging Services [address] [place] [address] [id number] Dexa Bone Density Study MR#: [id number] Acct: [id number] Name: TATY YIN Rep #: [id number] : 1955 F 69 From: Hugo Marroquin MD PCP: Dr. Danie Alberto MD Status: R EG CLI Study:Dexa Bone Density Study Date of Exam: 09/13/24 Exam# [id number] Ordering Dr: Dax Alberto MD PROCEDURE: DEXA BONE DENSITY STUDY 09/13/2024 REASON FOR EXAM: OSTEOPOROSIS F, age 69 y/o . Postmenopausal. TECHNIQUE: DXA scan of sites with data reported below. REFERENCE LINKS: ISCD Adult Positions COMPARISON: None FINDINGS: BMD and T-SCORES Lumbar spine: 0.918 g/cm2, T-score -1.2 Levels: L1 through L4 Left femoral neck: 0.642 g/cm2, T-score -1.9 Femoral neck comparison data not recommended for monitoring change. Left total hip: 0.766 g/cm2, T-score -1.4 Change from prior: Improvement of 5%. Right femoral neck: 0.645 g/cm2, T-score -1.8 Femoral neck comparison data not recommended for monitoring change. Right total hip: 0.764 g/cm2, T-score -1.5 Change from prior: Loss of 0.6%. The World Health Organization has defined the following categories based on bonedensity: Normal bone density: T-score equal to or greater than -1.0 Osteopenia: T-score between -1.0 and -2.5 Osteoporosis: T-score equal to or less than -2.5 The patient does meet the pharmacological treatment recommendations for prevention of osteoporosis. BD/Dexa Bone Density Study IMPRESSION: OSTEOPENIA. Recommend follow-up as clinically warranted. Reading Location: [id number] CC: Dr. Danie Alberot MD ~ Production Drilling Machine Operator: Signed [facility] Dexa Bone Density Studyon Dexa Bone Density Study [facility] Imaging Services [address] [place] [id number] Dexa Bone Density Study MR#: [id number] Acct: [id number] Name: TATY YIN Rep #: [id number] : 1955 F 69 From: Vicente ewing MD PCP: Dr. Danie Alberto MD Status: REG CLI Study: Dexa Bone Density Study Date of Exam: 09/13/24 Exam# [id number] Ordering Dr: Danie Alberto MD PROCEDURE: DEXA BONE DENSITY STUDY 09/13/2024 REASON FOR EXAM: OSTEOPOROSIS F, age 69 y/o . Postmenopausal. TECHNIQUE: DXA scan of sites with data reported below. REFERENCE LINKS: ISCD Adult Positions COMPARISON: None FINDINGS: BMD and T-SCORES Lumbar spine: 0.918 g/cm2, T-score -1.2 Levels: L1 through L4 Left femoral neck: 0.642 g/cm2, T-score -1.9 Femoral neck comparison data not recommended for monitoring change. Left total hip: 0.766 g/cm2, T-score -1.4 Change from prior: Improvement of 5%. Right femoral neck: 0.645 g/cm2, T-score -1.8 Femoral neck comparison data not recommended for monitoring change. Right total hip: 0.764 g/cm2, T-score -1.5 Change from prior: Loss of 0.6%. The World Health Organization has defined the following categories based on bone density: Normal bone density: T-score equal to or greater than -1.0 Osteopenia: T-score between -1.0 and -2.5 Osteoporosis: T-score equal to or less than -2.5 The patient does meet the pharmacological treatment recommendations for prevention of osteoporosis. BD/Dexa Bone Density Study IMPRESSION: OSTEOPENIA. Recommend follow-up as clinically warranted. Reading Location: [id number] CC: Dr. Danie Alberto MD Production Drilling Machine Operator: Signed Normal [facility] Internal Medicine Office Vis ito 09-06-2024 Internal Medicine Office Visit [facility] [address] [place] [address] [place] [address] OFFICE VISIT Date of Service: 09/06/24 MR#: [id number] Acct: [id number] Name: TATY YIN Rep #: [id number] : 1955 Provider: Dr. Danie mclain MD Age/Sex: 69/F Location: [facility] Status: Signed Intake Vital Signs 05/09/24 15:12 09/06/24 15:55 Height 5 ft 3 in 5 ft 3 in Weight: 157 lb BMI 27.8 BP 124/78 H Blood Pressure Location Lt brachial Position Sitting Respiration 16 Pulse 69 Pulse Source Monitor Temp 96.4 F L Temp Source Temporal Pulse Oximetry (%) 95 Oxygen Delivery Method room air Intake Visit Reasons: 4 M FU Chief Complaint: 4 M FU [place] Hand Required: No Accompanied by: Self Is patient in pain?: No Allergies No Known Allergies Allergy (Verified 09/06/24 15:52) Medications ???Medication ???Instructions ???Recorded ???Confirmed ???Type betamethasone dipropionate 0.05 % 1 applic topical DAILY PRN 09/06/24 History topical cream ivermectin 1 % topical cream 1 applic topical DAILY PRN 10/14/2 3 09/06/24 History clobetasol 0.05 % scalp solution 1 applic topical DAILY 02/14/23 History alendronate 70 mg tablet 70 mg PO QWEEK #14 tabs 01/04/24 0 09/06/24 Rx Held on 01/04/24. Instructions: Dental concerns calcium carbonate (Calcium 600) 600 mg PO BID 01/04/24 09/06/24 Hi story cholecalciferol (vitamin D3) 50 50 mcg PO BID 01/04/24 09/06/24 Hi story mcg (2,000 unit) capsule valsartan 160 mg tablet See Rx Instructions .Route 4 09/06/24 Rx .COMPLEX #90 tabs Have you fallen in the past year?: No PFSH Medical History Osteoporosis Health care maintenance Venous insufficiency of both lower extremities Borderline type 2 diabetes mellitus Hyperglycemia Hyperglycemia Obesity (BMI 30.0-34.9) Psoriasis Rosacea Cataract Diverticulitis Diverticular disease Skin cancer Surgical History H/O adenoidectomy Family History Father Alcohol abuse Bladder cancer Diabetes Heart disease Hypertension Mother Arthritis Hypertension High cholesterol Aunt CVA (cerebral vascular accident) Other Cancer Social History Smoking Status: Never smoker alcohol intake: never substance use type: does not use what type of physical activity do you participate in: none HPI HPI Chief Complaint: 4 M FU Details: TATY YIN, is a 69 F who presents to the office today for follow-up of her chronic medical conditions. No acute concerns at this time. History of borderline diabetes mellitus type 2 and A1c today is at 6 down from 6.2. Currently not on any medication. Also history of hypertension, blood pressure today is at 124/78 mmHg. Currently on valsartan taking her medication consistently. No chest pain, palpitation or shortness of breath. History of osteoporosis, alendronate has been on hold pending dental procedure. She states that she is taking her calcium and vitamin D supplements. No recent fracture. ROS Const Constitutional: No body ache, excessive sweating, fatigue, fever(s), frequent falls, headache(s), snoring, weakness, weight change, sleep problems or change in appetite Eyes Eyes: No blurry vision, change in vision, bulging eyes, floaters, visual disturbances, eye pain or Light sensitivity ENT ENT: No abnormal hearing, ear or mastoid pain, tinnitus, balance problems, nosebleed/epistaxis, nasal congestion, headache(s), neck pain or sore throat Resp Respiratory: No cough, excessive phlegm production, pain on inspiration, shortness of breath, snoring or wheezing Cardio Cardiology: No chest pain at rest, chest pain with exertion, excessive sweating, shortness of breath, dyspnea on exertion, lightheadedness, orthopnea or palpitations Gastro GI: No abdominal pain, change in bowel habits, constipation, cramping, diarrhea, nausea/dyspepsia or vomiting Genitourinary-Female : No burning urination, painful urination, urinary incontinence, urinary frequency, blood in urine, suprapubic fullness, side pain, abnormal periods or pelvic pain Musc Musculoskeletal: No abnormal gait, joint pain, back pain, limited range of motion, neck pain, numbness, stiffness, tingling or Arthritis Skin Skin: No dry skin, redness, lesions, itchy eyes, rash or wounds Neuro Neurology: No abnormal gait, abnormal hearing, abnormal speech, behavioral changes, unsteady gait/balance, dizziness, weakness, frequent falls, headache(s), memory loss, numbness, tingling or visual disturbances Psych Psychiatric: No anxiety, No behavioral changes, No change in appetit (more content not included)... Normal [facility] - Hematology and Cell countsOrdered By: Danie Alberto on 09-06-2024 HbA1c (Bld) [Mass fraction] 6.0 % 4.2-6.3 [facility] CBC W/Diff, Automatedon -0 Absolute Lymph 3.08 X10 3/uL Normal 0.83-4.51 [facility] Comment on above: Performed By: #### L 100.0100, L500.4050, L501.9985, L500.4100, L506.1000 #### [facility] [address] [place], [address] Absolute Neut 6.2 X10 3/uL Normal 2.0-7.7 [facility] Comment on above: Performed By: #### L 100.0100, L500.4050, L501.9985, L500.4100, L506.1000 #### [facility] [address] [place], [address] Basophils/100 WBC (Bld) 0.6 % Normal 0-1 [facility] Comment on above: Performed By: #### L 100.0100, L500.4050, L501.9985, L500.4100, L506.1000 #### [facility] [address] [place], [address] Eosinophils/100 WBC (Bld) 1.0 % Normal 0-5 [facility] Comment on above: Performed By: #### L 100.0100, L500.4050, L501.9985, L500.4100, L506.1000 #### [facility] [address] [place], [address] Erythrocyte distribution width (RBC) [Ratio] 13.5 % Normal 11.6-14.6 [facility] Comment on above: Performed By: #### L 100.0100, L500.4050, L501.9985, L500.4100, L506.1000 #### [facility] [address] [place], [address] Hematocrit (Bld) [Volume fraction] 41.4 % Normal 37-47 [facility] Comment on above: Performed By: #### L 100.0100, L500.4050, L501.9985, L500.4100, L506.1000 #### [facility] [address] [place], [address] Hemoglobin (Bld) [Mass/Vol] 13.6 g/dL Normal 12.0-15.0 [facility] Comment on above: Performed By: #### L 100.0100, L500.4050, L501.9985, L500.4100, L506.1000 #### [facility] [address] [place], [address] IG% 0.400 Normal 0.0-0.9 [facility] Comment on above: Result Comment: IG% - Immature Granulocytes (promyelocytes, myelocytes and metamyelocytes) > 1% indicates that a LEFT SHIFT is Present. Performed By: #### L 100.0100, L500.4050, L501.9985, L500.4100, L506.1000 #### [facility] [address] [place], [address] Lymphocytes/100 WBC (Bld) 30.5 % Normal 19-41 [facility] Comment on above: Performed By: #### L 100.0100, L500.4050, L501.9985, L500.4100, L506.1000 #### [facility] [address] [place], [address] MCH (RBC) [Entitic mass] 29.7 pg Normal 27.0-32.0 [facility] Comment on above: Performed By: #### L 100.0100, L500.4050, L501.9985, L500.4100, L506.1000 #### [facility] [address] [place], [address] MCHC (RBC) [Mass/Vol] 32.9 g/dL Normal 32-36 [facility] Comment on above: Performed By: #### L 100.0100, L500.4050, L501.9985, L500.4100, L506.1000 #### [facility] [address] [place], [address] MCV (RBC) [Entitic vol] 90.4 fL Normal 81-99 [facility] Comment on above: Performed By: #### L 100.0100, L500.4050, L501.9985, L500.4100, L506.1000 #### [facility] [address] [place], [address] Monocytes/100 WBC (Bld) 6.5 % Normal 0-10 [facility] Comment on above: Performed By: #### L 100.0100, L500.4050, L501.9985, L500.4100, L506.1000 #### [facility] [address] [place], [address] Neutrophils/100 WBC (Bld) 61.0 % Normal 47-70 [facility] Comment on above: Performed By: #### L 100.0100, L500.4050, L501.9985, L500.4100, L506.1000 #### [facility] [address] [place], [address] Nucleated RBC (Bld) [#/Vol] 0 10*3/uL Normal 0-5 [facility] Comment on above: Performed By: #### L 100.0100, L500.4050, L501.9985, L500.4100, L506.1000 #### [facility] [address] [place], [address] Platelet mean volume (Bld) [Entitic vol] 9.5 fL Normal 6.2-12.0 [facility] Comment on above: Performed By: #### L 100.0100, L500.4050, L501.9985, L500.4100, L506.1000 #### [facility] [address] [place], [address] Platelets (Bld) [#/Vol] 397 10*3/uL Normal 150-450 [facility] Comment on above: Performed By: #### L 100.0100, L500.4050, L501.9985, L500.4100, L506.1000 #### [facility] [address] [place], [address] RBC (Bld) [#/Vol] 4.58 10*6/uL Normal 4.2-5.4 [facility] Comment on above: Performed By: #### L 100.0100, L500.4050, L501.9985, L500.4100, L506.1000 #### [facility] [address] [place], [address] RDW SD 44.7 fl High 35.1-43.9 [facility] Comment on above: Performed By: #### L 100.0100, L500.4050, L501.9985, L500.4100, L506.1000 #### [facility] [address] [place], [address] WBC (Bld) [#/Vol] 10.1 10*3/uL Normal 4.4-11.0 [facility] Comment on above: Performed By: #### L 100.0100, L500.4050, L501.9985, L500.4100, L506.1000 #### [facility] [address] [place], [address] Comprehensive Metabolic Prof [facility] 05-09-2024 Albumin [Mass/Vol] 3.6 g/dL Normal 3.2-5.0 [facility] Comment on above: Performed By: #### L 100.0100, L500.4050, L501.9985, L500.4100, L506.1000 ####[facility] [address] [place], [address] Albumin/Globulin [Mass ratio] 0.9 {ratio} Normal 0.9-2.4 [facility] Comment on above: Performed By: #### L 100.0100, L500.4050, L501.9985, L500.4100, L506.1000 ####[facility] [address] [place], [address] ALK P 46 U/L Normal 45-117 [facility] Comment on above: Performed By: #### L 100.0100, L500.4050, L501.9985, L500.4100, L506.1000 ####[facility] [address] [place], [address] ALT [Catalytic activity/Vol] 23 U/L Normal 13-56 [facility] Comment on above: Performed By: #### L 100.0100, L500.4050, L501.9985, L500.4100, L506.1000 ####[facility] [address] [place], [address] AST [Catalytic activity/Vol] 15 U/L Normal 15-37 [facility] Comment on above: Performed By: #### L 100.0100, L500.4050, L501.9985, L500.4100, L506.1000 ####[facility] [address] [place], [address] Bilirubin [Mass/Vol] 0.40 mg/dL Normal 0.20-1.00 [facility] Comment on above: Result Comment: For patients on eltrombopag therapy, use of Dimension [place] TBIL is not recommended. Performed By: #### L 100.0100, L500.4050, L501.9985, L500.4100, L506.1000 ####[facility] [address] [place], [address] BUN/CRE 20.8 RATIO High 10-20 [facility] Comment on above: Performed By: #### L 100.0100, L500.4050, L501.9985, L500.4100, L506.1000 ####[facility] [address] [place], [address] CA,Total 9.3 mg/dL Normal 8.5-10.1 [facility] Comment on above: Performed By: #### L 100.0100, L500.4050, L501.9985, L500.4100, L506.1000 ####[facility] [address] [place], [address] Chloride [Moles/Vol] 102 mmol/L Normal 98-107 [facility] Comment on above: Performed By: #### L 100.0100, L500.4050, L501.9985, L500.4100, L506.1000 ####[facility] [address] [place], [address] CO2 [Moles/Vol] 27.0 mmol/L Normal 21.0-32.0 [facility] Comment on above: Performed By: #### L 100.0100, L500.4050, L501.9985, L500.4100, L506.1000 ####[facility] [address] [place], [address] Creatinine [Mass/Vol] 0.96 mg/dL Normal 0.55-1.02 [facility] Comment on above: Result Comment: The validity of the calculated GFR GFRAA in patients over 70 years has not been determined. Clinical correlation is essential. Performed By: #### L 100.0100, L500.4050, L501.9985, L500.4100, L506.1000 ####[facility] [address] [place], [address] EST GFR - AA 74 mL/min Normal >60 [facility] Comment on above: Result Comment: Afri can [place] GFR Calc Performed By: #### L 100.0100, L500.4050, L501.9985, L500.4100, L506.1000 ####[facility] [address] [place], [address] GAP 6 Normal 5-15 [facility] Comment on above: Performed By: #### L 100.0100, L500.4050, L501.9985, L500.4100, L506.1000 ####[facility] [address] [place], [address] GFR/1.73 sq M.predicted among non-blacks MDRD (S/P/Bld) [Vol rate/Area] 61 mL/min/{1.73_m2} Normal >60 [facility] Comment on above: Result Comment: Non- GFR Calc Performed By: #### L 100.0100, L500.4050, L501.9985, L500.4100, L506.1000 ####[facility] [address] [place], [address] Globulin (S) [Mass/Vol] 4.0 g/dL Normal 2.2-4.2 [facility] Comment on above: Performed By: #### L 100.0100, L500.4050, L501.9985, L500.4100, L506.1000 ####[facility] [address] [place], [address] Glucose [Mass/Vol] 107 mg/dL High 74-106 [facility] Comment on above: Result Comment: Fast ing Glucose result from 100 to 125 mg/dL suggests IMPAIRED HOMEOSTASIS per A.D.A. criteria. Performed By: #### L 100.0100, L500.4050, L501.9985, L500.4100, L506.1000 ####[facility] [address] [place], [address] Potassium [Moles/Vol] 4.0 mmol/L Normal 3.5-5.1 [facility] Comment on above: Performed By: #### L 100.0100, L500.4050, L501.9985, L500.4100, L506.1000 ####[facility] [address] [place], [address] Sodium [Moles/Vol] 135 mmol/L Low 136-145 [facility] Comment on above: Performed By: #### L 100.0100, L500.4050, L501.9985, L500.4100, L506.1000 ####[facility] [address] [place], [address] T PROT 7.6 g/dL Normal 6.4-8.2 [facility] Comment on above: Performed By: #### L 100.0100, L500.4050, L501.9985, L500.4100, L506.1000 ####[facility] [address] [place], [address] Urea nitrogen [Mass/Vol] 20 mg/dL High 7-18 [facility] Comment on above: Performed By: #### L 100.0100, L500.4050, L501.9985, L500.4100, L506.1000 ####[facility] [address] [place], [address] Hemoglobin A1con 05-09-2024 HbA1c (Bld) [Mass fraction] 6.2 % High 3.8-5.6 [facility] Comment on above: Result Comment: Norm al < 5.7 % Prediabetic 5.7 - 6.4 % Diabetic >or= 6.5 % Please note range changes. Performed By: #### L 100.0100, L500.4050, L501.9985, L500.4100, L506.1000 ####[facility] [address] [place], [address] Internal Medicine Office Vis iton 05-09-2024 Internal Medicine Office Visit [facility] [address] [place] [address] [place] [address] OFFICE VISIT Date of Service: 05/09/24 MR#: [id number] Acct: [id number] Name: TATY YIN Rep #: [id number] : 1955 Provider: Dr. Danie mclain MD Age/Sex: 69/F Location: [facility] Status: Signed Intake Vital Signs 01/04/24 15:05 05/09/24 15:12 Height 5 ft 3 in 5 ft 3 in Weight: 158 lb BMI 28.0 BP 118/58 L Blood Pressure Location Lt brachial Position Sitting Respiration 14 Pulse 82 Pulse Source Monitor Temp 96.2 F L Temp Source Temporal Pulse Oximetry (%) 95 Oxygen Delivery Method room air Intake Visit Reasons: 4 m fu Chief Complaint: 4 M FU [place] Hand Required: No Accompanied by: Self Is patient in pain?: No Allergies No Known Allergies Allergy (Verified 05/09/24 15:06) Medications ???Medication ???Instructions ???Recorded ???Confirmed ???Type betamethasone dipropionate 0.05 % 1 applic topical DAILY PRN 04/22/21 05/09/24 History topical cream ivermectin 1 % topical cream 1 applic topical DAILY PRN 10/14/22 05/09/24 History clobetasol 0.05 % scalp solution 1 applic topical DAILY 02/14/23 05/09/24 History alendronate 70 mg tablet 70 mg PO QWEEK #14 tabs 01/04/24 05/09/24 Rx calcium carbonate (Calcium 600) 600 mg PO BID 01/04/24 05/09/24 History cholecalciferol (vitamin D3) 50 50 mcg PO BID 01/04/24 05/09/24 History mcg (2,000 unit) capsule valsartan 160 mg tablet See Rx Instructions .Route 04/17/24 05/09/24 Rx .COMPLEX #90 tabs Have you fallen in the past year?: No PFSH Medical History Osteoporosis Health care maintenance Venous insufficiency of both lower extremities Borderline type 2 diabetes mellitus Hyperglycemia Hyperglycemia Obesity (BMI 30.0-34.9) Psoriasis Rosacea Cataract Diverticulitis Diverticular disease Skin cancer Surgical History H/O adenoidectomy Family History Father Alcohol abuse Bladder cancer Diabetes Heart disease Hypertension Mother Arthritis Hypertension High cholesterol Aunt CVA (cerebral vascular accident) Other Cancer Social History Smoking Status: Never smoker alcohol intake: never substance use type: does not use what type of physical activity do you participate in: none HPI HPI Chief Complaint: 4 M FU Details: TATY YIN, is a 69 F who presents to the office today for follow up of her chronic medical conditions. No acute concerns at this time. Blood pressure today at 118/58 mmHg. Taking medication as prescribed. No chest pain, palpitation or shortness of breath. Also history of borderline DM type 2. Last A1C was at 6.1. Currently not on any medication. Labs ordered at her last visit however these will be done today. Still following up with her dentist/oral surgeon. Fosamax is still on hold at this time. Taking calcium and vitamin D supplements. ROS Const Constitutional: No body ache, excessive sweating, fatigue, fever(s), frequent falls, headache(s), snoring, weakness, weight change, sleep problems or change in appetite Eyes Eyes: No blurry vision, change in vision, floaters, visual disturbances, eye pain or Light sensitivity ENT ENT: No abnormal hearing, ear or mastoid pain, tinnitus, balance problems, nosebleed/epistaxis, nasal congestion, headache(s), neck pain or sore throat Resp Respiratory: No cough, excessive phlegm production, pain on inspiration, shortness of breath, snoring or wheezing Cardio Cardiology: No chest pain at rest, chest pain with exertion, excessive sweating, shortness of breath, dyspnea on exertion, lightheadedness, orthopnea or palpitations Gastro GI: No abdominal pain, change in bowel habits, constipation, cramping, diarrhea, nausea/dyspepsia or vomiting Genitourinary-Female : No burning urination, painful urination, urinary incontinence, urinary frequency, blood in urine, suprapubic fullness, side pain, abnormal periods or pelvic pain Musc Musculoskeletal: No abnormal gait, joint pain, back pain, limited range of motion, muscle cramps, neck pain, numbness, stiffness, tingling or Arthritis Skin Skin: No dry skin, redness, excessive hair growth, yellowing of the eye, lesions, itchy eyes, rash or wounds Neuro Neurology: No abnormal gait, abnormal hearing, abnormal speech, behavioral changes, unsteady gait/balance, dizziness, weakness, frequent falls, headache(s), memory loss, numbness, tingling or visual disturbances Psych Psychiatric: No anxiety, No behavioral changes, No change in appetite, No depression, No memory loss and No Thoughts of harming yourself/Others Endo (more content not included)... Normal [facility] Lipid Profileon 05-09-2024 Cholesterol [Mass/Vol] 211 mg/dL High 200 [facility] Comment on above: Result Comment: <200 mg/dL Desirable 200-240 mg/dL Borderline >240 mg/dL High Risk Performed By: #### L 100.0100, L500.4050, L501.9985, L500.4100, L506.1000 ####[facility] [address] [place], [address] Cholesterol in HDL [Mass/Vol] 52 mg/dL Normal [facility] Comment on above: Result Comment: The drugs N-Acetylcysteine and Metamizole may falsely depress this assay. Reference Range HDL <40 mg/dL Low HDL Cholesterol HDL >or= 60 mg/dL High HDL Cholesterol Performed By: #### L 100.0100, L500.4050, L501.9985, L500.4100, L506.1000 ####[facility] [address] [place], [address] Cholesterol in LDL [Mass/Vol] 129 mg/dL Normal 0-130 [facility] Comment on above: Performed By: #### L 100.0100, L500.4050, L501.9985, L500.4100, L506.1000 ####[facility] [address] [place], [address] Cholesterol in VLDL [Mass/Vol] 30 mg/dL Normal 5-40 [facility] Comment on above: Performed By: #### L 100.0100, L500.4050, L501.9985, L500.4100, L506.1000 ####[facility] [address] [place], [address] Triglyceride [Mass/Vol] 152 mg/dL Normal [facility] Comment on above: Result Comment: The drugs N-Acetylcysteine and Metamizole may falsely depress this assay. Serum Triglycerides Reference Interval Normal <150 mg/dL Borderline high 150 - 199 mg/dL High 200 - 499 mg/dL Very High > or = 500 mg/dL Performed By: #### L 100.0100, L500.4050, L501.9985, L500.4100, L506.1000 ####[facility] [address] [place], [address] Vitamin D,25 Hydroxyon 05-09 Vitamin D 25-OH 31.7 ng/mL Normal [facility] Comment on above: Result Comment: Tata min D 25(OH) Status Range Deficiency <20 ng/mL (50nmol/L) Insufficiency 20 - 30 ng/mL (50 - 75 nmol/L) Sufficiency 30 - 100 ng/mL (75 - 250 nmol/L) Toxicity >100 ng/mL (>250 nmol/L) Performed By: #### L 100.0100, L500.4050, L501.9985, L500.4100, L506.1000 ####[facility] [address] [place], [address] Internal Medicine Office Vis iton 01-04-2024 Internal Medicine Office Visit [facility] [address] [place], [place] [address] OFFICE VISIT Date of Service: 01/04/24 MR#: [id number] Acct: [id number] Name: TATY YIN Rep #: [id number] : 1955 Provider: Dr. Danie mclain MD Age/Sex: 68/F Location: [facility] Status: Signed Intake Vital Signs 08/31/23 13:59 01/04/24 15:05 Height 5 ft 3 in 5 ft 3 in Weight: 157 lb BMI 27.8 BP 124/70 H Blood Pressure Location Lt brachial Position Sitting Respiration 16 Pulse 73 Pulse Source Monitor Temp 98.2 F Temp Source Temporal Pulse Oximetry (%) 96 Oxygen Delivery Method room air Intake Visit Reasons: 4 month f/u Chief Complaint: 4 M FU [place] Hand Required: No Accompanied by: Self Is patient in pain?: No Allergies No Known Allergies Allergy (Verified 01/04/24 15:02) Medications ???Medication ???Instructions ???Recorded ???Confirmed ???Type betamethasone dipropionate 0.05 % 1 applic topical DAILY PRN 04/22/21 01/04/24 History topical cream ivermectin 1 % topical cream 1 applic topical DAILY PRN 10/14/22 01/04/24 History clobetasol 0.05 % scalp solution 1 applic topical DAILY 02/14/23 01/04/24 History valsartan 160 mg tablet See Rx Instructions .Route 10/31/23 01/04/24 Rx .COMPLEX #90 tabs alendronate 70 mg tablet 70 mg PO QWEEK #14 tabs 01/04/24 01/04/24 Rx calcium carbonate (Calcium 600) 600 mg PO BID 01/04/24 01/04/24 History cholecalciferol (vitamin D3) 50 50 mcg PO BID 01/04/24 01/04/24 History mcg (2,000 unit) capsule Have you fallen in the past year?: No PFSH Medical History Osteoporosis Health care maintenance Venous insufficiency of both lower extremities Borderline type 2 diabetes mellitus Hyperglycemia Hyperglycemia Obesity (BMI 30.0-34.9) Psoriasis Rosacea Cataract Diverticulitis Diverticular disease Skin cancer Surgical History H/O adenoidectomy Family History Father Alcohol abuse Bladder cancer Diabetes Heart disease Hypertension Mother Arthritis Hypertension High cholesterol Aunt CVA (cerebral vascular accident) Other Cancer Social History Smoking Status: Never smoker alcohol intake: never substance use type: does not use what type of physical activity do you participate in: none HPI HPI Chief Complaint: 4 M FU Details: TATY YIN, is a 68 F who presents to the office today for follow-up of her chronic medical conditions. Since her last visit, she states that she held Fosamax due to some dental concerns. Has an appointment with an oral surgeon in about a week. Currently on calcium and vitamin D supplements, recent vitamin D level at the lower limit of normal. History of borderline diabetes, recent A1c at 6.1 up from 5.7. She states that she had been doing a lot more sandwiches lately which may explain her elevated reading. Plans to make changes. Blood pressure today is at 124/70 mmHg. Stable renal function. Currently on valsartan which she is taking as prescribed. No chest pain, palpitation or shortness of breath. ROS Const Constitutional: No body ache, chills, excessive sweating, fatigue, fever(s), frequent falls, headache(s), snoring, weakness or change in appetite Eyes Eyes: No blurry vision, change in vision, bulging eyes, floaters, visual disturbances, eye pain or Light sensitivity ENT ENT: No abnormal hearing, ear or mastoid pain, tinnitus, balance problems, nosebleed/epistaxis, nasal congestion, headache(s), neck pain or sore throat Resp Respiratory: No cough, excessive phlegm production, pain on inspiration, shortness of breath, snoring or wheezing Cardio Cardiology: No chest pain at rest, chest pain with exertion, excessive sweating, dyspnea on exertion, lightheadedness, orthopnea or palpitations Gastro GI: No abdominal pain, change in bowel habits, constipation, cramping, diarrhea, nausea/dyspepsia or vomiting Genitourinary-Female : No burning urination, painful urination, urinary incontinence, urinary frequency, suprapubic fullness or side pain Musc Musculoskeletal: No abnormal gait, joint pain, back pain, limited range of motion, muscle cramps, muscle weakness, neck pain or numbness Skin Skin: No dry skin, redness, excessive hair growth, yellowing of the eye, lesions, itchy eyes, rash or wounds Neuro Neurology: No abnormal gait, abnormal hearing, behavioral changes, unsteady gait/balance, weakness, frequent falls, headache(s), memory loss, numbness or visual disturbances Psych Psychiatric: No anxiety, No behavioral changes, No change in appetite, No depression, No memory loss and No Thoughts of menezes (more content not included)... Normal [facility] Basic Metabolic Profile (BMP )on 12-30-2023 BUN/CRE 18.8 RATIO Normal - [facility] Comment on above: Performed By: #### L 506.1000, L500.2500, L501.9949 #### [facility] [address], [address] CA,Total 9.2 mg/dL Normal 8.5-10.1 [facility] Comment on above: Performed By: #### L 506.1000, L500.2500, L501.9985 #### [facility] [address], [address] Chloride [Moles/Vol] 107 mmol/L Normal 98-107 [facility] Comment on above: Performed By: #### L 506.1000, L500.2500, L501.9985 #### [facility] [address] [place], [address] CO2 [Moles/Vol] 25.0 mmol/L Normal 21.0-32.0 [facility] Comment on above: Performed By: #### L 506.1000, L500.2500, L501.9985 #### [facility] [address] [place], [address] Creatinine [Mass/Vol] 0.75 mg/dL Normal 0.55-1.02 [facility] Comment on above: Result Comment: The validity of the calculated GFR GFRAA in patients over 70 years has not been determined. Clinical correlation is essential. Performed By: #### L 506.1000, L500.2500, L501.9985 #### [facility] [address] [place], [address] EST GFR - AA 99 mL/min Normal >60 [facility] Comment on above: Result Comment: Afri can [place] GFR Calc Performed By: #### L 506.1000, L500.2500, L501.9985 #### [facility] [address] [place], [address] GAP 6 Normal 5-15 [facility] Comment on above: Performed By: #### L 506.1000, L500.2500, L501.9985 #### [facility] [address] [place], [address] GFR/1.73 sq M.predicted among non-blacks MDRD (S/P/Bld) [Vol rate/Area] 82 mL/min/{1.73_m2} Normal >60 [facility] Comment on above: Result Comment: Non- GFR Calc Performed By: #### L 506.1000, L500.2500, L501.9985 #### [facility] [address] [place], [address] Glucose [Mass/Vol] 103 mg/dL Normal 74-106 [facility] Comment on above: Result Comment: Fast ing Glucose result from 100 to 125 mg/dL suggests IMPAIRED HOMEOSTASIS per A.D.A. criteria. Performed By: #### L 506.1000, L500.2500, L501.9985 #### [facility] [address] [place], [address] Potassium [Moles/Vol] 3.9 mmol/L Normal 3.5-5.1 [facility] Comment on above: Performed By: #### L 506.1000, L500.2500, L501.9985 #### [facility] [address] [place], [address] Sodium [Moles/Vol] 138 mmol/L Normal 136-145 [facility] Comment on above: Performed By: #### L 506.1000, L500.2500, L501.9985 #### [facility] [address] [place], [address] Urea nitrogen [Mass/Vol] 14 mg/dL Normal 7-18 [facility] Comment on above: Performed By: #### L 506.1000, L500.2500, L501.9985 #### [facility] [address] [place], [address] Hemoglobin A1con 12-30-2023 HbA1c (Bld) [Mass fraction] 6.1 % High 3.8-5.6 [facility] Comment on above: Result Comment: Norm al < 5.7 % Prediabetic 5.7 - 6.4 % Diabetic >or= 6.5 % Please note range changes. Performed By: #### L 506.1000, L500.2500, L501.9985 #### [facility] [address] [place], [address] Vitamin D,25 Hydroxyon 12-29 Vitamin D 25-OH 35.9 ng/mL Normal [facility] Comment on above: Result Comment: Tata min D 25(OH) Status Range Deficiency <20 ng/mL (50nmol/L) Insufficiency 20 - 30 ng/mL (50 - 75 nmol/L) Sufficiency 30 - 100 ng/mL (75 - 250 nmol/L) Toxicity >100 ng/mL (>250 nmol/L) Performed By: #### L 506.1000, L500.2500, [id number] #### [facility] [address] [place], [place], [address] Absolute lymphocyte countOrd ered By: Danie Alberto on 08-29-2023 Lymphocytes Auto (Unsp spec) [#/Vol] 2.68 10*3/uL 0.83-4.51 [facility] Automated lymphocyte count a s percentage of total leukocytesOrdered By: Danie Alberto on 08-29-2023 Lymphocytes/100 WBC Auto (Unsp spec) 29.0 % 19-41 [facility] Basophil percentageOrdered B y: Danie Alberto on 08-29-2023 Basophils/100 WBC (Bld) 0.9 % 0-1 [facility] Bilirubin [Mass/Vol] 0.30 mg/dL 0.20-1.00 [facility] Comment on above: For patients on eltr ombopag therapy, use of Dimension [place] TBIL is not recommended. Chloride [Moles/Vol] 108 mmol/L 98-107 [facility] Cholesterol [Mass/Vol] 202 mg/dL <200 [facility] Comment on above: <200 mg/dL Desirable 200-240 mg/dL Borderline >240 mg/dL High Risk Eosinophils/100 WBC (Bld) 3.5 % 0-5 [facility] Glucose [Mass/Vol] 124 mg/dL 74-106 [facility] Comment on above: Fasting Glucose resu lt from 100 to 125 mg/dL suggests IMPAIRED HOMEOSTASIS per A.D.A. criteria. Hemoglobin (Bld) [Mass/Vol] 13.4 g/dL 12.0-15.0 [facility] Monocytes/100 WBC (Bld) 6.8 % 0-10 [facility] Neutrophils (Bld) [#/Vol] 5.5 10*3/uL 2.0-7.7 [facility] Neutrophils/100 WBC (Bld) 59.4 % 47-70 [facility] Potassium [Moles/Vol] 4.1 mmol/L 3.5-5.1 [facility] Protein [Mass/Vol] 7.6 g/dL 6.4-8.2 [facility] Sodium [Moles/Vol] 137 mmol/L 136-145 [facility] Triglyceride [Mass/Vol] 142 mg/dL <199 [facility] Comment on above: The drugs N-Acetylcy steine and Metamizole may falsely depress this assay.Serum Triglycerides Reference Interval Normal <150 mg/dL Borderline high 150 - 199 mg/dL High 200 - 499 mg/dL Very High > or = 500 mg/dL WBC (Bld) [#/Vol] 9.2 10*3/uL 4.4-11.0 [facility] Determination of erythrocyte mean corpuscular volume (MCV)Ordered By: Danie Alberto on 08-29-2023 MCV (RBC) [Entitic vol] 91.3 fL 81-99 [facility] Erythrocyte distribution wid th ratioOrdered By: Danie Alberto on 08-29-2023 Erythrocyte distribution width (RBC) [Ratio] 13.8 % 11.6-14.6 [facility] Erythrocyte distribution wid th standard deviationOrdered By: Danie Alberto on 08-29-2023 Erythrocyte distribution width (RBC) [Entitic vol] 46.5 fL 35.1-43.9 [facility] Hematocrit Auto (Bld) [Volum e fraction]Ordered By: Danie Alberto on 08-29-2023 Hematocrit (Bld) [Volume fraction] 41.1 % 37-47 [facility] Immature granulocytes/100 WB C Auto (Bld)Or[facility]: [facility] on 08-29-2023 Immature granulocytes/100 WBC (Bld) 0.400 % 0.0-0.9 [facility] Comment on above: IG% - Immature Granu locytes (promyelocytes, myelocytes and metamyelocytes) > 1% indicates that a LEFT SHIFT is Present. Laboratory - Chemistry and C hemistry - challengeOrdered By: [facility] on 08-29-2023 Albumin/Globulin [Mass ratio] 0.9 {ratio} 0.9-2.4 [facility] ALP [Catalytic activity/Vol] 38 U/L 45-117 [facility] ALT [Catalytic activity/Vol] 14 U/L 13-56 [facility] Cholesterol in HDL [Mass/Vol] 46 mg/dL >40 [facility] Comment on above: The drugs N-Acetylcy steine and Metamizole may falsely depress this assay. Reference Range HDL <40 mg/dL Low HDL Cholesterol HDL >or= 60 mg/dL High HDL Cholesterol Cholesterol in LDL [Mass/Vol] 128 mg/dL 0-130 [facility] CO2 [Moles/Vol] 23.0 mmol/L 21.0-32.0 [facility] Globulin (S) [Mass/Vol] 4.1 g/dL 2.2-4.2 [facility] Urea nitrogen/Creatinine [Mass ratio] 22.8 mg/mg 10-20 [facility] - Hematology and Cell countsOrdered By: hussein[place]xakosua Alberto on 08-29-2023 MCH (RBC) [Entitic mass] 29.8 pg 27.0-32.0 [facility] MCHC (RBC) [Mass/Vol] 32.6 g/dL 32-36 [facility] Nucleated RBC/100 WBC (Bld) [Ratio] 0 % 0-5 [facility] Platelet mean volume (Bld) [Entitic vol] 9.7 fL 6.2-12.0 [facility] Platelets (Bld) [#/Vol] 374 10*3/uL 150-450 [facility] No Panel InformationOrdered By: Danie Alberto on 08-29-2023 Estimated GFR (MDRD) Amer 78 mL/min >60 [facility] Comment on above: GFR Calc Estimated GFR (MDRD) Non-Af Amer 64 mL/min >60 [facility] Comment on above: Non- GFR Calc Vitamin D 25-Hydroxy 32.3 ng/mL [facility] Comment on above: Vitamin D 25(OH) Sta tus Range Deficiency <20 ng/mL (50nmol/L) Insufficiency 20 - 30 ng/mL (50 - 75 nmol/L) Sufficiency 30 - 100 ng/mL (75 - 250 nmol/L) Toxicity >100 ng/mL (>250 nmol/L) VLDL Cholesterol 28 mg/dL 5-40 [facility] RBC Auto (Bld) [#/Vol]Ordere d By: Danie Alberto on 08-29-2023 RBC (Bld) [#/Vol] 4.50 10*6/uL 4.2-5.4 [facility] Serum or plasma calcium abhijeet urement (mass/volume)Ordered By: Danie Alberto on 08-29-2023 Calcium [Mass/Vol] 8.9 mg/dL 8.5-10.1 [facility] Serum or plasma creatinine m easurement (mass/volume)Ordered By: Danie Alberto on 08-29-2023 Creatinine [Mass/Vol] 0.92 mg/dL 0.55-1.02 [facility] Comment on above: The validity of the calculated GFR & GFRAA in patients over 70 years has not been determined. Clinical correlation is essential. Serum or plasma urea nitroge n measurement (mass/volume)Ordered By: Danie Alberto on 08-29-2023 Urea nitrogen [Mass/Vol] 21 mg/dL 7-18 [facility] Thin prep Papanicolaou smear with manual screeningOrdered By: Danie Alberto on 08-29-2023 Thin prep Papanicolaou smear with manual screening 3.5 g/dL 3.2-5.0 [facility] Thin prep Papanicolaou smear with manual screening 16 U/L 15-37 [facility] Thin prep Papanicolaou smear with manual screening 6 5-15 [facility] Whole blood hemoglobin A1c/t otal hemoglobin ratio (mass fraction)Ordered By: Danie Alberto on 08-29-2023 HbA1c (Bld) [Mass fraction] 5.7 % 3.8-5.6 [facility] Comment on above: Normal < 5.7 % Predi abetic 5.7 - 6.4 % Diabetic >or= 6.5 % Please note range changes. Basophil percentageOrdered B y: Danie Alberto on 05-11-2023 Chloride [Moles/Vol] 107 mmol/L 98-107 [facility] Glucose [Mass/Vol] 125 mg/dL 74-106 [facility] Comment on above: Fasting Glucose resu lt from 100 to 125 mg/dL suggests IMPAIRED HOMEOSTASIS per A.D.A. criteria. Potassium [Moles/Vol] 4.3 mmol/L 3.5-5.1 [facility] Sodium [Moles/Vol] 137 mmol/L 136-145 [facility] Laboratory - Chemistry and C hemistry - challengeOrdered By: Danie Alberto on 05-11-2023 CO2 [Moles/Vol] 25.0 mmol/L 21.0-32.0 [facility] Urea nitrogen/Creatinine [Mass ratio] 19.7 mg/mg 10- [facility] No Panel InformationOrdered By: Danie Alberto on 05-11-2023 Estimated GFR (MDRD) Amer 79 mL/min >60 [facility] Comment on above: GFR Calc Estimated GFR (MDRD) Non-Af Amer 65 mL/min >60 [facility] Comment on above: Non- GFR Calc Serum or plasma calcium abhijeet urement (mass/volume)Ordered By: Danie Alberto on 05-11-2023 Calcium [Mass/Vol] 9.5 mg/dL 8.5-10.1 [facility] Serum or plasma creatinine m easurement (mass/volume)Ordered By: Danie Alberto on 05-11-2023 Creatinine [Mass/Vol] 0.91 mg/dL 0.55-1.02 [facility] Comment on above: The validity of the calculated GFR & GFRAA in patients over 70 years has not been determined. Clinical correlation is essential. Serum or plasma urea nitroge n measurement (mass/volume)Ordered By: Danie Alberto on 05-11-2023 Urea nitrogen [Mass/Vol] 18 mg/dL 7-18 [facility] Thin prep Papanicolaou smear with manual screeningOrdered By: Danie Alberto on 05-11-2023 Thin prep Papanicolaou smear with manual screening 5 5-15 [facility] Whole blood hemoglobin A1c/t otal hemoglobin ratio (mass fraction)Ordered By: Danie Alberto on 05-11-2023 HbA1c (Bld) [Mass fraction] 5.9 % 3.8-5.6 [facility] Comment on above: Normal < 5.7 % Predi abetic 5.7 - 6.4 % Diabetic >or= 6.5 % Please note range changes. Basophil percentageOrdered B y: Danie Alberto on 02-14-2023 Bilirubin [Mass/Vol] 0.30 mg/dL 0.20-1.00 [facility] Comment on above: For patients on eltr ombopag therapy, use of Dimension [place] TBIL is not recommended. Chloride [Moles/Vol] 103 mmol/L 98-107 [facility] Glucose [Mass/Vol] 113 mg/dL 74-106 [facility] Comment on above: Fasting Glucose resu lt from 100 to 125 mg/dL suggests IMPAIRED HOMEOSTASIS per A.D.A. criteria. Potassium [Moles/Vol] 4.3 mmol/L 3.5-5.1 [facility] Protein [Mass/Vol] 7.8 g/dL 6.4-8.2 [facility] Sodium [Moles/Vol] 137 mmol/L 136-145 [facility] Laboratory - Chemistry and C hemistry - challengeOrdered By: Danie Alberto on 02-14-2023 ALP [Catalytic activity/Vol] 49 U/L 45-117 [facility] ALT [Catalytic activity/Vol] 25 U/L 13-56 [facility] CO2 [Moles/Vol] 28.0 mmol/L 21.0-32.0 [facility] Globulin (S) [Mass/Vol] 4.4 g/dL 2.2-4.2 [facility] Urea nitrogen/Creatinine [Mass ratio] 16.0 mg/mg - [facility] No Panel InformationOrdered By: Danie Alberto on 02-14-2023 Estimated GFR (MDRD) Amer 66 mL/min >60 [facility] Comment on above: GFR Calc Estimated GFR (MDRD) Non-Af Amer 55 mL/min >60 [facility] Comment on above: Non- GFR Calc Vitamin D 25-Hydroxy 29.6 ng/mL [facility] Comment on above: Vitamin D 25(OH) Sta tus Range Deficiency <20 ng/mL (50nmol/L) Insufficiency 20 - 30 ng/mL (50 - 75 nmol/L) Sufficiency 30 - 100 ng/mL (75 - 250 nmol/L) Toxicity >100 ng/mL (>250 nmol/L) Serum or plasma albumin abhijeet urement (mass/volume)Ordered By: Danie Alberto on 02-14-2023 Albumin [Mass/Vol] 3.4 g/dL 3.2-5.0 [facility] Serum or plasma albumin/glob ulin mass ratioOrdered By: Danie Alberto on 02-14-2023 Albumin/Globulin [Mass ratio] 0.8 {ratio} 0.9-2.4 [facility] Serum or plasma calcium abhijeet urement (mass/volume)Ordered By: Danie Alberto on 02-14-2023 Calcium [Mass/Vol] 8.9 mg/dL 8.5-10.1 [facility] Serum or plasma creatinine m easurement (mass/volume)Ordered By: Danie Alberto on 02-14-2023 Creatinine [Mass/Vol] 1.06 mg/dL 0.55-1.02 [facility] Comment on above: The validity of the calculated GFR & GFRAA in patients over 70 years has not been determined. Clinical correlation is essential. Serum or plasma urea nitroge n measurement (mass/volume)Ordered By: Danie Alberto on 02-14-2023 Urea nitrogen [Mass/Vol] 17 mg/dL -18 [facility] Thin prep Papanicolaou smear with manual screeningOrdered By: Danie Alberto on 02-14-2023 Thin prep Papanicolaou smear with manual screening 20 U/L 15-37 [facility] Thin prep Papanicolaou smear with manual screening 6 5-15 [facility] Basophil percentageOrdered B y: Dr. Alberto on 08-04-2022 Bilirubin [Mass/Vol] 0.30 mg/dL 0.20-1.00 [facility] Comment on above: For patients on eltr ombopag therapy, use of Dimension [place] TBIL is not recommended. Chloride [Moles/Vol] 103 mmol/L 98-107 [facility] Glucose [Mass/Vol] 97 mg/dL 74-106 [facility] Potassium [Moles/Vol] 4.1 mmol/L 3.5-5.1 [facility] Protein [Mass/Vol] 8.0 g/dL 6.4-8.2 [facility] Sodium [Moles/Vol] 135 mmol/L 136-145 [facility] Laboratory - Chemistry and C hemistry - challengeOrdered By: Dr. Alberto on 08-04-2022 ALP [Catalytic activity/Vol] 76 U/L 45-117 [facility] ALT [Catalytic activity/Vol] 17 U/L 13-56 [facility] CO2 [Moles/Vol] 26.0 mmol/L 21.0-32.0 [facility] Globulin (S) [Mass/Vol] 4.5 g/dL 2.2-4.2 [facility] Urea nitrogen/Creatinine [Mass ratio] 21.0 mg/mg 10-20 [facility] No Panel InformationOrdered By: Dr. Alberto on 08-04-2022 Estimated GFR (MDRD) Amer 97 mL/min >60 [facility] Comment on above: GFR Calc Estimated GFR (MDRD) Non-Af Amer 81 mL/min >60 [facility] Comment on above: Non- GFR Calc Serum or plasma albumin abhijeet urement (mass/volume)Ordered By: Dr. Alberto on 08-04-2022 Albumin [Mass/Vol] 3.5 g/dL 3.2-5.0 [facility] Serum or plasma albumin/glob ulin mass ratioOrdered By: Dr. Alberto on 08-04-2022 Albumin/Globulin [Mass ratio] 0.8 {ratio} 0.9-2.4 [facility] Serum or plasma calcium abhijeet urement (mass/volume)Ordered By: Dr. Alberto on 08-04-2022 Calcium [Mass/Vol] 9.2 mg/dL 8.5-10.1 [facility] Serum or plasma creatinine m easurement (mass/volume)Ordered By: Dr. Alberto on 08-04-2022 Creatinine [Mass/Vol] 0.76 mg/dL 0.55-1.02 [facility] Comment on above: The validity of the calculated GFR & GFRAA in patients over 70 years has not been determined. Clinical correlation is essential. Serum or plasma urea nitroge n measurement (mass/volume)Ordered By: Dr. Alberto on 08-04-2022 Urea nitrogen [Mass/Vol] 16 mg/dL 7-18 [facility] Thin prep Papanicolaou smear with manual screeningOrdered By: Dr. Alberto on 08-04-2022 Thin prep Papanicolaou smear with manual screening 14 U/L 15-37 [facility] Thin prep Papanicolaou smear with manual screening 6 5-15 [facility] Absolute lymphocyte countOrd ered By: Dr. Alberto on 07-01-2022 Lymphocytes Auto (Unsp spec) [#/Vol] 2.89 10*3/uL 0.83-4.51 [facility] Basophil percentageOrdered B y: Dr. Alberto on 07-01-2022 Basophils/100 WBC (Bld) 0.5 % 0-1 [facility] Chloride [Moles/Vol] 105 mmol/L 98-107 [facility] Cholesterol [Mass/Vol] 202 mg/dL <200 [facility] Comment on above: <200 mg/dL Desirable 200-240 mg/dL Borderline >240 mg/dL High Risk Eosinophils/100 WBC (Bld) 1.1 % 0-5 [facility] Glucose [Mass/Vol] 113 mg/dL 74-106 [facility] Comment on above: Fasting Glucose resu lt from 100 to 125 mg/dL suggests IMPAIRED HOMEOSTASIS per A.D.A. criteria. Neutrophils (Bld) [#/Vol] 7.0 10*3/uL 2.0-7.7 [facility] Neutrophils/100 WBC (Bld) 64.9 % 47-70 [facility] Potassium [Moles/Vol] 4.2 mmol/L 3.5-5.1 [facility] Sodium [Moles/Vol] 138 mmol/L 136-145 [facility] Triglyceride [Mass/Vol] 152 mg/dL <199 [facility] Comment on above: The drugs N-Acetylcy steine and Metamizole may falsely depress this assay.Serum Triglycerides Reference Interval Normal <150 mg/dL Borderline high 150 - 199 mg/dL High 200 - 499 mg/dL Very High > or = 500 mg/dL WBC (Bld) [#/Vol] 10.7 10*3/uL 4.4-11.0 [facility] Blood erythrocytes count (nu mber/volume)Ordered By: Dr. Alberto on 07-01-2022 RBC (Bld) [#/Vol] 4.76 10*6/uL 4.2-5.4 [facility] Blood hemoglobin measurement (mass/volume)Ordered By: Dr. Alberto on 07-01-2022 Hemoglobin (Bld) [Mass/Vol] 13.7 g/dL 12.0-15.0 [facility] Blood lymphocytes/100 leukoc ytesOrdered By: Dr. Alberto on 07-01-2022 Lymphocytes/100 WBC (Bld) 27.0 % 19-41 [facility] Blood monocytes/100 leukocyt esOrdered By: Dr. Alberto on 07-01-2022 Monocytes/100 WBC (Bld) 6.0 % 0-10 [facility] Blood platelet mean volumeOr dered By: Dr. Alberto on 07-01-2022 Platelet mean volume (Bld) [Entitic vol] 10.0 fL 6.2-12.0 [facility] Determination of erythrocyte mean corpuscular volume (MCV)Ordered By: Dr. Alberto on 07-01-2022 MCV (RBC) [Entitic vol] 90.1 fL 81-99 [facility] Hematocrit Auto (Bld) [Volum e fraction]Ordered By: Dr. Alberto on 07-01-2022 Hematocrit (Bld) [Volume fraction] 42.9 % 37-47 [facility] - Chemistry and C hemistry - challengeOrdered By: Dr. Alberto on 07-01-2022 CO2 [Moles/Vol] 26.0 mmol/L 21.0-32.0 [facility] Urea nitrogen/Creatinine [Mass ratio] 15.3 mg/mg 10-20 [facility] - Hematology and Cell countsOrdered By: Dr. Alberto on 07-01-2022 Erythrocyte distribution width (RBC) [Entitic vol] 46.6 fL 35.1-43.9 [facility] Erythrocyte distribution width (RBC) [Ratio] 14.1 % 11.6-14.6 [facility] Immature granulocytes/100 WBC (Bld) 0.500 % 0.0-0.9 [facility] Comment on above: IG% - Immature Granu locytes (promyelocytes, myelocytes and metamyelocytes) > 1% indicates that a LEFT SHIFT is Present. MCH (RBC) [Entitic mass] 28.8 pg 27.0-32.0 [facility] Nucleated RBC/100 WBC (Bld) [Ratio] 0 % 0-5 [facility] MCHC Auto (RBC) [Mass/Vol]Or dered By: Dr. Alberto on 07-01-2022 MCHC (RBC) [Mass/Vol] 31.9 g/dL 32-36 [facility] No Panel InformationOrdered By: Dr. Alberto on 07-01-2022 Estimated GFR (MDRD) Amer 104 mL/min >60 [facility] Comment on above: GFR Calc Estimated GFR (MDRD) Non-Af Amer 86 mL/min >60 [facility] Comment on above: Non- GFR Calc Platelets bldOrdered By: Dr. Alberto on 07-01-2022 Platelets (Bld) [#/Vol] 431 10*3/uL 150-450 [facility] Serum or plasma calcium abhijeet urement (mass/volume)Ordered By: Dr. Alberto on 07-01-2022 Calcium [Mass/Vol] 9.2 mg/dL 8.5-10.1 [facility] Serum or plasma cholesterol in HDL measurement (mass/volume)Ordered By: Dr. Alberto on 07-01-2022 Cholesterol in HDL [Mass/Vol] 46 mg/dL >40 [facility] Comment on above: The drugs N-Acetylcy steine and Metamizole may falsely depress this assay. Reference Range HDL <40 mg/dL Low HDL Cholesterol HDL >or= 60 mg/dL High HDL Cholesterol Serum or plasma cholesterol in VLDL measurement (mass/volume)Ordered By: Dr. Alberto on 07-01-2022 Cholesterol in VLDL [Mass/Vol] 30 mg/dL 5-40 [facility] Serum or plasma creatinine m easurement (mass/volume)Ordered By: Dr. Alberto on 07-01-2022 Creatinine [Mass/Vol] 0.72 mg/dL 0.55-1.02 [facility] Comment on above: The validity of the calculated GFR & GFRAA in patients over 70 years has not been determined. Clinical correlation is essential. Serum or plasma low density lipoprotein (LDL) cholesterol measurement (mass/volume)Ordered By: Dr. Alberto on 07-01-2022 Cholesterol in LDL [Mass/Vol] 126 mg/dL 0-130 [facility] Serum or plasma urea nitroge n measurement (mass/volume)Ordered By: Dr. Alberto on 07-01-2022 Urea nitrogen [Mass/Vol] 11 mg/dL 7-18 [facility] Thin prep Papanicolaou smear with manual screeningOrdered By: Dr. Alberto on 07-01-2022 Thin prep Papanicolaou smear with manual screening 7 5-15 [facility] Whole blood hemoglobin A1c/t otal hemoglobin ratio (mass fraction)Ordered By: Dr. Alberto on 07-01-2022 HbA1c (Bld) [Mass fraction] 5.9 % 3.8-5.6 [facility] Comment on above: Normal < 5.7 % Predi abetic 5.7 - 6.4 % Diabetic >or= 6.5 % Please note range changes. Basophil percentageon 2021 Chloride [Moles/Vol] 102 mmol/L 98-107 [facility] Work Phone: Glucose [Mass/Vol] 103 mg/dL 74-106 [facility] Work Phone: Comment on above: Fasting Glucose resu lt from 100 to 125 mg/dL suggests IMPAIRED HOMEOSTASIS per A.D.A. criteria. Potassium [Moles/Vol] 4.1 mmol/L 3.5-5.1 [facility] Work Phone: Sodium [Moles/Vol] 136 mmol/L 136-145 [facility] Work Phone: Laboratory - Chemistry and C hemistry - challengeon 11-23-2021 CO2 [Moles/Vol] 28.0 mmol/L 21.0-32.0 [facility] Work Phone: Urea nitrogen/Creatinine [Mass ratio] 21.0 mg/mg 10-20 [facility] Work Phone: No Panel Informationon 11-23 Estimated GFR (MDRD) Amer 67 mL/min >60 [facility] Work Phone: Comment on above: GFR Calc Estimated GFR (MDRD) Non-Af Amer 56 mL/min >60 [facility] Work Phone: Comment on above: Non- GFR Calc Serum or plasma calcium abhijeet urement (mass/volume)on 11-23-2021 Calcium [Mass/Vol] 9.0 mg/dL 8.5-10.1 [facility] Work Phone: Serum or plasma creatinine m easurement (mass/volume)on 11-23-2021 Creatinine [Mass/Vol] 1.05 mg/dL 0.55-1.02 [facility] Work Phone: Comment on above: The validity of the calculated GFR & GFRAA in patients over 70 years has not been determined. Clinical correlation is essential. Serum or plasma urea nitroge n measurement (mass/volume)on 11-23-2021 Urea nitrogen [Mass/Vol] 22 mg/dL 7-18 [facility] Work Phone: Thin prep Papanicolaou smear with manual screeningon 11-23-2021 Thin prep Papanicolaou smear with manual screening 6 5-15 [facility] Work Phone: Laboratory - Hematology and Cell countson 09-02-2021 HbA1c (Bld) [Mass fraction] 6.3 % 4.2-6.3 [facility] Work Phone: Basophil percentageon 2021 Chloride [Moles/Vol] 104 mmol/L 98-107 [facility] Work Phone: Glucose [Mass/Vol] 139 mg/dL 74-106 [facility] Work Phone: Comment on above: Fasting Glucose resu lt greater than or equal to 126 mg/dL suggests DIABETES MELLITUS per A.D.A. criteria. Potassium [Moles/Vol] 4.0 mmol/L 3.5-5.1 [facility] Work Phone: Sodium [Moles/Vol] 138 mmol/L 136-145 [facility] Work Phone: Laboratory - Chemistry and C hemistry - challengeon 08-24-2021 CO2 [Moles/Vol] 29.0 mmol/L 21.0-32.0 [facility] Work Phone: Urea nitrogen/Creatinine [Mass ratio] 18.4 mg/mg 10-20 [facility] Work Phone: No Panel Informationon 08-24 Estimated GFR (MDRD) Amer 69 mL/min >60 [facility] Work Phone: Comment on above: GFR Calc Estimated GFR (MDRD) Non-Af Amer 57 mL/min >60 [facility] Work Phone: Comment on above: Non- GFR Calc Serum or plasma calcium abhijeet urement (mass/volume)on 08-24-2021 Calcium [Mass/Vol] 8.7 mg/dL 8.5-10.1 [facility] Work Phone: Serum or plasma creatinine m easurement (mass/volume)on 08-24-2021 Creatinine [Mass/Vol] 1.03 mg/dL 0.55-1.02 [facility] Work Phone: Comment on above: The validity of the calculated GFR & GFRAA in patients over 70 years has not been determined. Clinical correlation is essential. Serum or plasma urea nitroge n measurement (mass/volume)on 08-24-2021 Urea nitrogen [Mass/Vol] 19 mg/dL 7-18 [facility] Work Phone: Thin prep Papanicolaou smear with manual screeningon 08-24-2021 Thin prep Papanicolaou smear with manual screening 5 5-15 [facility] Work Phone: Vital Signs Date Time Vital Sign Value Performing Clinician Faci lity 11-14-2024 15:22-0400 Body temperature 98.6 [degF] Dr. Danie Alberto MD Work Phone: [facility] 11-14-2024 15:22-0400 Body weight 72.[address] Danie Alberto MD Work Phone: [facility] 11-14-2024 15:22-0400 Diastolic blood pressure 85 mm[Hg] Dr. Danie Alberto MD Work Phone: [facility] 11-14-2024 15:22-0400 Heart rate 71 /min Dr. Dnaie Alberto MD Work Phone: [facility] 11-14-2024 15:22-0400 Respiratory rate 14 /min Dr. Danie Alberto MD Work Phone: [facility] 11-14-2024 15:22-0400 SaO2% (BldA) [Mass fraction] 94 % Dr. Danie Alberto MD Work Phone: [facility] 11-14-2024 15:22-0400 Systolic blood pressure 137 mm[Hg] Dr. Danie Alberto MD Work Phone: [facility] 09-06-2024 15:55-0400 Body height 160.[address] Danie Alberto MD Work Phone: [facility] 09-06-2024 15:55-0400 Body mass index (BMI) [Ratio] 27.8 kg/m2 Dr. Danie Alberto MD Work Phone: [facility] 09-06-2024 15:55-0400 Body temperature 96.4 [degF] Dr. Danie Alberto MD Work Phone: [facility] 09-06-2024 15:55-0400 Body weight 71.[address] Danie Alberto MD Work Phone: [facility] 09-06-2024 15:55-0400 Diastolic blood pressure 78 mm[Hg] Dr. Danie Alberto MD Work Phone: [facility] 09-06-2024 15:55-0400 Heart rate 69 /min Dr. Danie Alberto MD Work Phone: [facility] 09-06-2024 15:55-0400 Respiratory rate 16 /min Dr. Danie Alberto MD Work Phone: [facility] 09-06-2024 15:55-0400 SaO2% (BldA) [Mass fraction] 95 % Dr. Danie Alberto MD Work Phone: [facility] 09-06-2024 15:55-0400 Systolic blood pressure 124 mm[Hg] Dr. Danie Alberto MD Work Phone: [facility] 08-31-2023 13:59-0400 Body height 160.[address] Danie Alberto Work Phone: [facility] 08-31-2023 13:59-0400 Body mass index (BMI) [Ratio] 27.3 kg/m2 Dr. Danie Alberto Work Phone: [facility] 08-31-2023 13:59-0400 Body temperature 98.3 [degF] Dr. Danie Alberto Work Phone: [facility] 08-31-2023 13:59-0400 Body weight 70.[address] Danie Alberto Work Phone: [facility] 08-31-2023 13:59-0400 Diastolic blood pressure 70 mm[Hg] Dr. Danie Alberto Work Phone: [facility] 08-31-2023 13:59-0400 Heart rate 88 /min Dr. Danie Alberto Work Phone: [facility] 08-31-2023 13:59-0400 Respiratory rate 16 /min Dr. Danie Alberto Work Phone: [facility] 08-31-2023 13:59-0400 SaO2% (BldA) [Mass fraction] 95 % Dr. Danie Alberto Work Phone: [facility] 08-31-2023 13:59-0400 Systolic blood pressure 120 mm[Hg] Dr. Danie Alberto Work Phone: [facility] 05-18-2023 16:14-0500 Body mass index (BMI) [Ratio] 27.4 kg/m2 Dr. Danie Alberto Work Phone: [facility] 05-18-2023 16:14-0500 Body temperature 97.1 [degF] Dr. Danie Alberto Work Phone: [facility] 05-18-2023 16:14-0500 Body weight 70.[address] Danie Alberto Work Phone: [facility] 05-18-2023 16:14-0500 Diastolic blood pressure 70 mm[Hg] Dr. Danie Alberto Work Phone: [facility] 05-18-2023 16:14-0500 Heart rate 70 /min Dr. Danie Alberto Work Phone: [facility] 05-18-2023 16:14-0500 SaO2% (BldA) [Mass fraction] 99 % Dr. Danie Alberto Work Phone: [facility] 05-18-2023 16:14-0500 Systolic blood pressure 110 mm[Hg] Dr. Danie Alberto Work Phone: [facility] 02-14-2023 15:50-0400 Diastolic blood pressure 86 mm[Hg] Dr. Danie Alberto Work Phone: [facility] 02-14-2023 15:50-0400 Systolic blood pressure 132 mm[Hg] Dr. Danie Alberto Work Phone: [facility] 02-14-2023 15:16-0400 Body height 160.[address] Danie Alberto Work Phone: [facility] 02-14-2023 15:16-0400 Body mass index (BMI) [Ratio] 29.2 kg/m2 Dr. Danie Alberto Work Phone: [facility] 02-14-2023 15:16-0400 Body temperature 98.6 [degF] Dr. Danie Alberto Work Phone: [facility] 02-14-2023 15:16-0400 Body weight 74.[address] Danie Alberto Work Phone: [facility] 02-14-2023 15:16-0400 Heart rate 77 /min Dr. Danie Alberto Work Phone: [facility] 02-14-2023 15:16-0400 Respiratory rate 16 /min Dr. Danie Alberto Work Phone: [facility] 02-14-2023 15:16-0400 SaO2% (BldA) [Mass fraction] 96 % Dr. Danie Alberto Work Phone: [facility] 07-05-2022 08:23-0500 Body height 160.[address] Danie Alberto Work Phone: [facility] 07-05-2022 08:23-0500 Body mass index (BMI) [Ratio] 26.8 kg/m2 Dr. Danie Alberto Work Phone: [facility] 07-05-2022 08:23-0500 Body temperature 97.5 [degF] Dr. Danie Alberto Work Phone: [facility] 07-05-2022 08:23-0500 Body weight 68.[address] Danie Alberto Work Phone: [facility] 07-05-2022 08:23-0500 Diastolic blood pressure 86 mm[Hg] Dr. Danie Alberto Work Phone: [facility] 07-05-2022 08:23-0500 Heart rate 67 /min Dr. Danie Alberto Work Phone: [facility] 07-05-2022 08:23-0500 Respiratory rate 16 /min Dr. Danie Alberto Work Phone: [facility] 07-05-2022 08:23-0500 SaO2% (BldA) [Mass fraction] 97 % Dr. Danie Alberto Work Phone: [facility] 07-05-2022 08:23-0500 Systolic blood pressure 132 mm[Hg] Dr. Danie Alberto Work Phone: [facility] 09-02-2021 08:03-0400 Body height 160.[address] Danie Alberto Work Phone: [facility] Work Phone: 09-02-2021 08:03-0400 Body mass index (BMI) [Ratio] 29.2 kg/m2 Dr. Danie Alberto Work Phone: [facility] Work Phone: 09-02-2021 08:03-0400 Body temperature 98 [degF] Dr. Danie Alberto Work Phone: [facility] Work Phone: 09-02-2021 08:03-0400 Body weight 74.[address] Danie Alberto Work Phone: [facility] Work Phone: 09-02-2021 08:03-0400 Diastolic blood pressure 80 mm[Hg] Dr. Danie Alberto Work Phone: [facility] Work Phone: 09-02-2021 08:03-0400 Heart rate 75 /min Dr. Danie Alberto Work Phone: [facility] Work Phone: 09-02-2021 08:03-0400 Respiratory rate 16 /min Dr. Danie Alberto Work Phone: [facility] Work Phone: 09-02-2021 08:03-0400 SaO2% (BldA) [Mass fraction] 96 % Dr. Danie Alberto Work Phone: [facility] Work Phone: 09-02-2021 08:03-0400 Systolic blood pressure 122 mm[Hg] Dr. Danie Alberto Work Phone: [facility] Work Phone: 05-20-2021 16:02-0500 Body height 160.[address] Danie Alberto Work Phone: [facility] Work Phone: 05-20-2021 16:02-0500 Body mass index (BMI) [Ratio] 30.2 kg/m2 Dr. Danie Alberto Work Phone: [facility] Work Phone: 05-20-2021 16:02-0500 Body temperature 97.6 [degF] Dr. Danie Alberto Work Phone: [facility] Work Phone: 05-20-2021 16:02-0500 Body weight 77.[address] Danie Alberto Work Phone: [facility] Work Phone: 05-20-2021 16:02-0500 Diastolic blood pressure 84 mm[Hg] Dr. Danie Alberto Work Phone: [facility] Work Phone: 05-20-2021 16:02-0500 Heart rate 74 /min Dr. Danie Alberto Work Phone: [facility] Work Phone: 05-20-2021 16:02-0500 Respiratory rate 14 /min Dr. Danie Alberto Work Phone: [facility] Work Phone: 05-20-2021 16:02-0500 SaO2% (BldA) [Mass fraction] 96 % Dr. Danie Alberto Work Phone: [facility] Work Phone: 05-20-2021 16:02-0500 Systolic blood pressure 156 mm[Hg] Dr. Danie Alberto Work Phone: [facility] Work Phone: Encounters Encounter Date Encounter Type Care Provider Facility Start: 11-29-2024 ambulatory Farida Snow Facility:[facility] Start: 11-14-2024 End: 11-14-2024 Patient encounter procedure Farida CHANCE -[facility] Work Phone: Start: 11-14-2024 End: 11-14-[address] Danie Alberto MD Work Phone: -[facility] Start: 10-09-2024 Non-patient / Non-visit Dr. Pilo ZHANG -[facility] Work Phone: Start: 10-09-[address] Aron Alberto MD -Cat Scan [facility] Work Phone: Start: 10-09-2024 ambulatory Bravo Solomon Facility:[facility] Start: 09-13-2024 End: 09-13-[address] Danie Alberto MD Work Phone: [facility] Work Phone: Start: 09-13-2024 End: 09-13-[address] Danie Alberto MD -Outpatient Bone Densitometry Work Phone: Start: 09-13-2024 End: 09-13-2024 ambulatory [facility] Facility:[facility] Start: 09-10-2024 Encounter for genera l adult medical examination without abnormal findings [facility] Start: 09-06-2024 End: 09-06-[address] Danie Alberto MD -[facility] Work Phone: Start: 09-06-2024 End: 09-06-2024 ambulatory [facility] Facility:[facility] Start: 09-04-2024 End: 09-04-[address] Danie Alberto MD Work Phone: [facility] Work Phone: Start: 09-04-2024 End: 09-04-[address] Danie Alberto MD -Laboratory Work Phone: Start: 09-04-2024 End: 09-04-2024 ambulatory [facility] Facility:[facility] Start: 05-09-2024 End: 05-09-20[facility] Start: 05-09-2024 End: 05-09-2024 ambulatory [facility] Facility:[facility] Start: 01-04-2024 End: 01-04-2024 ambulatory [facility] Facility:[facility] Start: 12-30-2023 End: 12-30-2023 ambulatory [facility] Facility:[facility] Start: 08-31-2023 End: 08-31-[address] Danie Alberto Work Phone: [facility] Work Phone: Start: 08-29-2023 End: 08-29-[address] Danie Alberto Work Phone: [facility] Work Phone: Start: 08-29-2023 End: 08-29-[address] [facility] Start: 05-18-2023 End: 05-18-[address] Danie Alberto Work Phone: [facility] Work Phone: Start: 05-11-2023 End: 05-11-[address] Danie Alberto Work Phone: [facility] Work Phone: Start: 05-11-2023 End: 05-11-[address] [facility] Start: 02-14-2023 End: 02-14-[address] Danie Alberto Work Phone: [facility] Work Phone: Start: 02-14-2023 End: 02-14-[address] Danie Alberto Work Phone: [facility] Work Phone: Start: 08-04-2022 End: 08-04-[address] Danie Alberto Work Phone: [facility] Work Phone: Start: 08-04-2022 End: 08-04-[address] Danie Alberto Work Phone: [facility]-Laboratory Start: 07-22-2022 End: 07-22-[address] Danie Alberto Work Phone: [facility]-Outpatient Bone Densitometry Start: 07-05-[address] Danie Alberto Work Phone: [facility] Start: 07-05-2022 End: 07-05-2022 Encounter for general adult medical examination without abnormal findings Dr. Danie Alberto Work Phone: [facility] Start: 07-05-2022 End: 07-05-[address] Danie Alberto Work Phone: [facility] Start: 07-01-2022 End: 07-01-[address] Danie Alberto Work Phone: [facility] Work Phone: Start: 07-01-2022 End: 07-01-[address] Danie Alberto Work Phone: [facility]-Laboratory Start: 11-23-2021 End: 11-23-[address] Danie Alberto Work Phone: [facility]-Laboratory Start: 09-02-2021 End: 09-02-[address] Danie Alberto Work Phone: [facility] Start: 08-24-2021 End: 08-24-[address] Danie Alberto Work Phone: [facility]-Laboratory Start: 05-20-2021 End: 05-20-[address] Danie Alberto Work Phone: [facility] Internal Medicine Procedures Date Procedure Procedure Detail Performing Clinician Start: 10-09-2024 CT angiography of co ronary arteries Dr. Danie Alberto MD Work Phone: Start: 09-13-2024 Dual energy X-ray absorptiometry Dr. Danie Alberto MD Work Phone: Start: 07-22-2022 Dual energy X-ray absorptiometry Dr. Danie Alberto Work Phone: Plan of Treatment Date Care Activity Detail Author Start: 09-13-2024 DXA Bone [Mass/Area] Bone density [facility] Blood chemistry [facility] CT angiography of co ronary arteries [facility] DXA Bone [Mass/Area] Bone density [facility] Hemoglobin A1c/Hemog lobin.total in Blood [facility] Vitamin D, 25-hydroxy measurement [facility] Immunizations Immunization Date Immunization Notes Care Provider Laya dominguez 03-02-2015 tetanus toxoid, redu veronika diphtheria toxoid, and acellular pertussis vaccine, adsorbed Dr. Danie Alberto Work Phone: [facility] Payers Date Payer Category Payer Unknown 2023 Self-pay [id number] 2023 Medicare [id number] 533 [id number] Unknown [id number] 2016 Unknown [id number] Unknown [id number] 2.16.8 [id number] Unknown [id number] 2.16.8 [id number] Unknown [id number] 2.16.8 [id number] Unknown [id number] 2.16.8 [id number] Unknown [id number] 2.16.8 [id number] Unknown [id number] 2.16.8 [id number] Unknown [id number] 2.16.8 [id number] Unknown [id number] 2.16.8 [id number] Unknown [id number] 2.16.8 [id number] Unknown [id number] 2.16.8 [id number] Unknown [id number] 2.16.8 [id number] Social History Date Type Detail Facility Start: 05-20-2021 End: 05-18-2023 Tobacco smoking status NHIS Unknown if ever smoked [facility] Start: 08-05-2016 None [facility] Start: 08-05-2016 Non-smoker [facility] Start: 1955 Sex Assigned At Female [facility] Start: 05-18-2023 Tobacco smoking stat us ILIS Never smoked tobacco (finding) [facility] Evaluation note 09-06-2024 Note Date & Type Note Facility 09-06-2024 Evaluation note Diagnosis Onset Date Resolution Borderline type 2 diabetes mellitus chronic September 06, 2024 3:50pm Essential hypertension chronic Ma 2024 3:50pm Osteoporosis chronic September 06 3:50pm [facility] Work Phone: Evaluation note Note Date & Type Note Facility Evaluation note Diagnosis Onset Date Essential hypertension acute Obesity (BMI 30.0-34.9) acut e [facility] Work Phone: Evaluation note Note Date & Type Note Facility Evaluation note Diagnosis Onset Date Hyperglycemia acute Essential hypertension chron ic [facility] Work Phone: Evaluation note Note Date & Type Note Facility Evaluation note Diagnosis Onset Date Health care maintenance acut e Borderline type 2 diabetes mellitus chronic Essential hypertension chron ic Venous insufficiency of both lower extremities chronic [facility] Work Phone: Evaluation note Note Date & Type Note Facility Evaluation note Diagnosis Onset Date Osteoporosis acute Borderline type 2 diabetes mellitus chronic Essential hypertension chron ic [facility] Work Phone: Evaluation note Note Date & Type Note Facility Evaluation note Diagnosis Onset Date Borderline type 2 diabetes mellitus chronic Essential hypertension chron ic Osteoporosis chronic Borderline type 2 diabetes mellitus chronic Essential hypertension chron ic Osteoporosis chronic [facility] Work Phone: Reason for referral (narrative) Note Date & Type Note Facility Reason for referral (narrative) No reason for referral information available [facility] Work Phone: Chief Complaint and Reason for Visit Chief Complaint 1 M FU eorder Reason for Visit Essential hypertensi on Obesity (BMI 30.0-34.9) Chief Complaint eorder 3 M FU E ORDER Reason for Visit Hyperglycemia Essential hypertension Chief Complaint E ORDERS 4 M FU [facility] Borderline type 2 diabetes mellitus Essential hypertension Venous insufficiency of both lower extremities Chief Complaint E ORDERS 4 M FU POST MENOPAUSAL E ORDER Reason for Visit [facility] Borderline type 2 diabetes mellitus Essential hypertension Venous insufficiency of both lower extremities Chief Complaint 4 M FU Reason for Visit Osteoporosis Borderline type 2 diabetes mellitus Essential hypertension Chief Complaint 4 M FU E-ORDER Reason for Visit Osteoporosis Borderline type 2 diabetes mellitus Essential hypertension Chief Complaint E-ORDER 3 m fu E ORDERS 4 M FU Reason for Visit Borderline type 2 di abetes mellitus Essential hypertension Osteoporosis Borderline type 2 diabetes mellitus Essential hypertension Osteoporosis Chief Complaint Admit Date need order-per pt dolly should have sen t it September 04, 2024 11:25am 4 M FU September 06, 2024 3:50pm Reason for Visit Admit Date Borderline type 2 diabetes mellitus September 06, 2024 3:50pm Essential hypertension September 06, 2024 3:5 0pm Osteoporosis September 06, 2024 3:50pm Chief Complaint Admit Date need order-per pt dolly should have sen t it September 04, 2024 11:25am 4 M FU September 06, 2024 3:50pm Osteoporosis September 13, 2024 2:35p m Chief Complaint Admit Date need order-per pt dolly should have sen t it September 04, 2024 11:25am 4 M FU September 06, 2024 3:50pm Osteoporosis September 13, 2024 2:35p m SCREENING October 09, 2024 7:[address] CALCIUM SCORING October 09, 2024 7:01 am AAA November 14, 2024 3:07 pm Family History No Family History Records Found Relationship Condition Age at Onset Recorded Date/T marlon Not Specified Malignant neoplasm Unknown father Alcohol abuse Unknown Malignant neoplasm of urinary bladder Unk nown Diabetes mellitus Unknown Cardiac disease Unknown Hypertension Unknown mother Arthritis Unknown High blood cholesterol Unknown aunt Cerebrovascular accident (CVA) Unknown Relationship Condition Age at Onset Recorded Date/T marlon Not Specified Malignant neoplasm Unknown father Alcohol abuse Unknown Malignant neoplasm of urinary bladder Unk nown Diabetes mellitus Unknown Cardiac disease Unknown Hypertension Unknown Abdominal aortic aneurysm (AAA) Unknown mother Arthritis Unknown High blood cholesterol Unknown aunt Cerebrovascular accident (CVA) Unknown Advance Directives No Advanced Directives Records Found Advance Directive Response Recorded Date/ Time Living Will No July 09, 2019 6:26pm Power of Hire Car Driver No July 08 0 6:26pm Advance Directive Response Recorded Date/ Time Living Will No July 09, 2019 5:26pm Power of Hire Car Driver No July 08 0 5:26pm Summary Purpose Additional Source Comments Goals (unrecognized section and content) Goals may be documented in a n alternate sectionGoals may be documented in an alternate sectionGoals may be documented in an alternate sectionGoals may be documented in an alternate sectionGoals may be documented in an alternate sectionGoals may be documented in an alternate sectionGoals may be documented in an alternate sectionGoals may be documented in an alternate sectionGoals may be documented in an alternate sectionGoals may be documented in an alternate section Care Teams (unrecognized sec tion and content) Team Status: Active Member Role Status Dates No Primary Care Physician Family Provider Active Dr. Danie Alberto MD Primary Care Provider Active Team Status: Inactive Member Role Status Dates Dr. Danie Alberto MD Primary Care P rovider, Attending Provider, Referring Provider Active Team Status: Inactive Member Role Status Dates Dr. Danie Alberto MD Primary Care Provider, Atten ding Provider Active Team Status: Active Member Role Status Dates Dr. Danie Alberto MD Primary Care Provider Active Team Status: Inactive Member Role Status Dates Dr. Danie Alberto MD Primary Care Provider Active Start: September 04, 2024 End: September 04, 2024 Dr. Danie Alberto MD Attending Provider Active Start: September 04, 2024 End: September 04, 2024 Dr. Danie Alberto MD Referring Provider Active Start: September 04, 2024 End: September 04, 2024 Team Status: Inactive Member Role Status Dates Dr. Danie Alberto MD Primary Care Provider Active Start: September 06, 2024 End: September 06, 2024 Dr. Danie Alberto MD Attending Provider Active Start: September 06, 2024 End: September 06, 2024 Dr. Danie Alberto MD Referring Provider Active Start: September 06, 2024 End: September 06, 2024 Team Status: Inactive Member Role Status Dates Dr. Danie Alberto MD Primary Care Provider Active Start: September 13, 2024 End: September 13, 2024 Dr. Danie Alberto MD Attending Provider Active Start: September 13, 2024 End: September 13, 2024 Dr. Danie Alberto MD Referring Provider Active Start: September 13, 2024 End: September 13, 2024 Team Status: Active Member Role/Relationship Status Dates Dr. Danie Alberto MD Primary Care Provider Active Team Status: Inactive Member Role/Relationship Status Dates Dr. Danie Alberto MD Primary Care Provider Active Start: September 04, 2024 End: September 04, 2024 Dr. Danie Alberto MD Attending Provider Active Start: September 04, 2024 End: September 04, 2024 Dr. Danie Alberto MD Referring Provider Active Start: September 04, 2024 End: September 04, 2024 Team Status: Inactive Member Role/Relationship Status Dates Dr. Danie Ablerto MD Primary Care Provider Active Start: September 06, 2024 End: September 06, 2024 Dr. Danie Alberto MD Attending Provider Active Start: September 06, 2024 End: September 06, 2024 Dr. Danie Alberto MD Referring Provider Active Start: September 06, 2024 End: September 06, 2024 Team Status: Inactive Member Role/Relationship Status Dates Dr. Danie Alberto MD Primary Care Provider Active Start: September 13, 2024 End: September 13, 2024 Dr. Danie Alberto MD Attending Provider Active Start: September 13, 2024 End: September 13, 2024 Dr. Danie Alberto MD Referring Provider Active Start: September 13, 2024 End: September 13, 2024 Team Status: Active Member Role/Relationship Status Dates Dr. Danie Alberto MD Primary Care Provider Active Start: October 09, 2024 Dr. Danie Alberto MD Attending Provider Active Start: October 09, 2024 Dr. Danie Alberto MD Referring Provider Active Start: October 09, 2024 Team Status: Active Member Role/Relationship Status Dates Dr. Danie Alberto MD Primary Care Provider Active Start: October 09, 2024 Dr. Bravo Solomon MD Attending Provider Active S tart: October 09, 2024 Dr. Bravo Solomon MD Referring Provider Active S tart: October 09, 2024 Team Status: Inactive Member Role/Relationship Status Dates Dr. Danie Alberto MD Primary Care Provider Active Start: November 14, 2024 End: November 14, 2024 Dr. Danie Alberto MD Referring Provider Active Start: November 14, 2024 End: November 14, 2024 ROBSON Schrader Attending Provider Active Star t: November 14, 2024 End: November 14, 2024 INFORMATION SOURCE (unrecogn ized section and content) DATE CREATED AUTHOR 11/28/2024 [facility] FOR RECORDS PERTAINING TO PATIENTS WHO ARE OR HAVE BEEN ENROLLED IN A CHEMICAL DEPENDENCY/SUBSTANCEABUSE PROGRAM, SOME INFORMATION MAY BE OMITTED. This clinical summary was aggregated from multiple sources. Caution should be exercised in using it in the provision of clinical care. This summary normalizes information from multiple sources, and as a consequence, information in this document may materially change the coding, format and clinical context of patient data. In addition, data may be omitted in some cases. CLINICAL DECISIONS SHOULD BE BASED ON THE PRIMARY CLINICAL RECORDS. [facility] [email or web address] [facility]. provides no warranty or guarantee of the accuracy or completeness of information in this document.
== END | disposition home or self-care (01) ==
LOC: CT 07:24
PROVIDERS: PCP Internal Medicine; Referring Provider Physician Assistant; Visit Provider Physician Assistant
DX: I71.9 Aortic aneurysm of unspecified site, without rupture (principal)
CPT/HCPCS: 71275; 74174; Q9967

== ENCOUNTER → 2024-12-20 | Outpatient (CLI) | payer MEDICARE, BC, SELFPAY ==
--- NOTE | 2024-12-20 13:47 | ECHOD_ITS ---
Reason For Study Reason For Study: Thoracic Ao Aneurysm Procedure This was a 2D Doppler, Color Flow transthoracic echocardiogram. Exam performed in department. Left Ventricle Normal LV size. The left ventricular ejection fraction is 70 %. Stage 1 diastolic dysfunction. No regional wall motion abnormalities noted. Right Ventricle Normal RV size. Normal systolic function. Atria Normal left atrium. Normal right atrium. Bubble contrast study is negative for PFO/ASD. Mitral Valve Normal mitral valve. Tricuspid Valve Normal tricuspid valve. Mild (1+) tricuspid valve insufficiency. Pulmonary artery systolic pressure is 30 mmHg. Aortic Valve Trisinus/trileaflet aortic valve. Pulmonic Valve The pulmonic valve is not well visualized. Great Vessels Mildly dilated aortic root. The pulmonary artery is normal size. Normal inferior vena cava. Pericardium/Pleural No pericardial effusion. Medication 22 gauge I.V. with prn adaptor inserted into right arm. Performed a rapid injection of agitated mix of 9 cc saline and 1cc air to assess for atrial septal defect. MMode/2D Measurements & Calculations LVIDd: 4.3 cm IVSd: 1.1 cm Ao root diam: 4.2 cm LVIDs: 1.9 cm LVPWd: 1.0 cm RVDd: 3.1 cm FS: 55.7 % LAV(MOD-bp): 37.6 ml LVAd ap4: 23.1 cm2 LVAd ap2: 24.3 cm2 LAV(MOD-bp) Indexed: 21.7 ml/m2 LVLd ap4: 7.0 cm LVLd ap2: 7.1 cm LAV(MOD-sp2): 37.6 ml EDV(MOD-sp4): 63.7 ml EDV(MOD-sp2): 69.5 ml LAV(MOD-sp4): 36.6 ml EDV(sp4-el): 65.0 ml EDV(sp2-el): 70.1 ml LVAs ap4: 12.2 cm2 LVAs ap2: 11.3 cm2 LVLs ap4: 5.6 cm LVLs ap2: 6.0 cm ESV(MOD-sp4): 22.8 ml ESV(MOD-sp2): 17.9 ml ESV(sp4-el): 22.5 ml ESV(sp2-el): 18.1 ml EF(MOD-sp4): 64.1 % EF(MOD-sp2): 74.3 % EF(sp4-el): 65.4 % SV(MOD-sp4): 40.9 ml SV(MOD-sp2): 51.6 ml SV(sp4-el): 42.5 ml SI(MOD-sp4): 23.6 ml/m2 SI(MOD-sp2): 29.7 ml/m2 LA A4 area: 14.4 cm2 LA dimension(2D): 3.5 cm RA A4 area: 11.1 cm2 TAPSE: 1.7 cm Time Measurements MV dec time: 0.32 sec Doppler Measurements & Calculations MV E max hiram: 74.8 cm/sec Lat Peak E' Hiram: 8.5 cm/sec Med Peak E' Hiram: 5.7 cm/sec MV A max hiram: 92.3 cm/sec E/E' lat: 8.8 E/E' med: 13.0 MV E/A: 0.81 MV dec slope: 235.4 cm/sec2 Ao V2 max: 186.2 cm/sec LV V1 max: 136.2 cm/sec Ao max P.9 mmHg LV V1 max P.4 mmHg Ao V2 mean: 109.5 cm/sec LV V1 mean P.6 mmHg Ao mean P.9 mmHg LV V1 mean: 86.0 cm/sec Ao V2 VTI: 30.3 cm LV V1 VTI: 26.8 cm AV (velocity ratio): 0.88 PA V2 max: 107.6 cm/sec TR max hiram: 251.4 cm/sec TR max P.3 mmHg ECHO/Echo Complete Interpretation Summary Normal LV size. The left ventricular ejection fraction is 70 %. Bubble contrast study is negative for PFO/ASD. Stage 1 diastolic dysfunction. Mildly dilated aortic root. Measuring 4.2 cm. Pulmonary artery systolic pressure is 30 mmHg. Ordering Physician: Farida Snow Referring Physician: Farida Snow Performed By: Maria C Torres RDCS
== END | disposition home or self-care (01) ==
LOC: CVS 13:46
PROVIDERS: PCP Internal Medicine; Referring Provider Physician Assistant; Visit Provider Physician Assistant
DX: I71.21 Aneurysm of the ascending aorta, without rupture (principal)
CPT/HCPCS: 93306; A4216

== ENCOUNTER → 2025-05-01 | Outpatient (CLI) | payer MEDICARE, BC, SELFPAY ==
--- OUTSIDE RECORDS SUMMARY | 2025-05-01 14:18 | XMS RPT_ITS | CCD ---
Author Organization [facility] Care Team Providers Care Casing Splitter Name Role Phone Dr. Danie Alberto Primary Care Provider [phone] Dr. Danie Alberto Attending Provider [phone] Dr. Danie Alberto Referring Provider [phone] Dolly ZHANG, Dr. Helton Primary Care Provider Dolly ZHANG, Dr. Helton Attending Provider [phone] Dolly ZHANG, Dr. eHlton Referring Provider [phone] Dr. Bravo Solomon MD Attending Provider [phone] Dr. Bravo Solomon MD Referring Provider [phone] Farida Quinones Attending Provider [phone] Farida Quinones Referring Provider [phone] Farida Snow Attending Unavailable Farida Snow Referring Unavailable Oleghe, Efewongbe Primary Care Unavailable Oleghe, Efewongbe Attending Unavailable Oleghe, Efewongbe Referring Unavailable Oleghe, Efewongbe Primary Care Unavailable Oleghe, Efewongbe Attending Unavailable Oleghe, Efewongbe Referring Unavailable Oleghe, Efewongbe Primary Care Unavailable Oleghe, Efewongbe Attending Unavailable Oleghe, Efewongbe Referring Unavailable Oleghe, Efewongbe Primary Care Unavailable Snow, Farida Attending Unavailable Snow, Farida Referring Unavailable Oleghe, Efewongbe Primary Care Unavailable Oleghe, Efewongbe Referring Unavailable Oleghe, Efewongbe Primary Care Unavailable Oleghe, Efewongbe Attending Unavailable Oleghe, Efewongbe Attending Unavailable Oleghe, Efewongbe Referring Unavailable Oleghe, Efewongbe Primary Care Unavailable Oleghe, Efewongbe Attending Unavailable Oleghe, Efewongbe Referring Unavailable Oleghe, Efewongbe Primary Care Unavailable Oleghe, Efewongbe Attending Unavailable Oleghe, Efewongbe Referring Unavailable Oleghe, Efewongbe Primary Care Unavailable Juanito, [place] Attending Unavailable Juanito, Bravo Referring Unavailable Oleghe, Efewongbe Primary Care Unavailable Oleghe, Efewongbe Primary Care Unavailable Juanito, [place] Attending Unavailable Oleghe, Efewongbe Referring Unavailable Oleghe, Efewongbe Primary Care Unavailable Olepatriciae, Efewongbe Attending Unavailable Farida Snow Attending Unavailable Oleghe, Efewongbe Referring Unavailable Oleghe, Efewongbe Primary Care Unavailable Medications Current Medications Medication Drug Class(es) Dates Sig (Normalized) Sig (Original) betamethasone 0.5 mg/ml topical cream (13 sources) Corticosteroid Start: 04-22-2021 Betamethasone Dipropionate 0.05 % cream Active 1 NMA TOPICAL DAILY as needed April 22, 2021 1:00am calcium carbonate 1500 mg oral tablet (6 sources) Start: 01-04-2024 take 1 tablet by mouth twice daily Calcium Carbonate (Calcium 600) 600 mg calcium (1,500 mg) tablet Active 600 mg PO TWICE A DAY January 04, 2024 12:00am cholecalciferol 0.05 mg oral capsule (6 sources) Vitamin D Start: 01-04-2024 take 1 capsule by mouth twice daily Cholecalciferol (Vitamin D3) 50 mcg (2,000 unit) capsule Active 50 ug PO TWICE A DAY January 04, 2024 12:00am clobetasol propionate 0.5 mg/ml medicated shampoo (13 sources) Corticosteroid Start: 11-14-2024 Clobetasol 0.05 % shampoo Active TOPICAL November 14, 2024 12:00am Start: 02-14-2023 Clobetasol 0.0 5 % solution Active 1 NMA TOPICAL DAILY February 14, 2023 12:00am ivermectin 10 mg/ml topical cream (20 sources) Antiparasitic, Pediculicide Start: 04-22-2021 End: 10-14-2022 Ivermectin 1 % cream Active 1 NMA TOPICAL DAILY as needed October 14, 2022 3:05pm Completed/Discontinued Medications Medication Drug Class(es) Dates Sig (Normalized) Sig (Original) alendronic acid 70 mg oral tablet (20 sources) Bisphosphonate Start: 10-15-19 End: 01-04-20 take 1 tablet by mouth every week Alendronate 70 mg tablet Discontinued 70 mg PO EVERY WEEK 14 November 11, 2023 1:05pm January 04, 2024 3:04pm amLODIPine 10 mg oral tablet (20 sources) Dihydropyridine Calcium Channel Jr Start: 12-04-19 End: 07-06-19 take 1 tablet by mouth once daily Amlodipine 10 mg tablet Discontinued 10 mg PO DAILY 90 March 05, 2022 3:29pm July 05, 2022 9:49am hydroCHLOROthiazide 12.5 mg oral tablet (13 sources) Thiazide Diuretic Start: 04-22-20 End: 05-20-19 take 1 tablet by mouth once daily in the morning Hydrochlorothiazide 12.5 mg tablet Discontinued 12.5 mg PO EVERY MORNING 30 April 22, 2021 1:00am May 20, 2021 6:33pm hydroCHLOROthiazide 25 mg / triamterene 37.5 mg oral tablet (13 sources) Potassium-sparing Diuretic, Thiazide Diuretic Start: 05-20-19 End: 03-05-20 Triamterene-Hydrochlor othiazid 37.5-25 mg tablet Discontinued 1 {tbl} PO EVERY MORNING 90 May 20, 2021 1:00am March 05, 2022 3:27pm Start: 05-20-2021 End: 03-05-2022 take 1 tablet by mouth once daily in the morning Triamterene-Hydrochlorothiazid Discontin ued 1 TABLET PO EVERY MORNING May 20, 2021 1:00am March 05, 2022 3:27pm 24 hr metFORMIN hydrochloride 500 mg extended release oral tablet (9 sources) Biguanide Start: 02-14-2023 End: 05-18-2023 take 1 tablet by mouth once daily in the evening Metformin 500 mg tablet extended release 24 hr Discontinued 500 mg PO EVERY EVENING 60 2 February 14, 2023 12:00am May 18, 2023 5:36pm valsartan 160 mg oral tablet (20 sources) Angiotensin 2 Receptor Jr Start: 05-04-2023 take 1 tablet by mouth once daily Valsartan Active 0 .ROUTE .COMPLEX 90 May 04, 2023 2:04pm TAKE 1 TABLET BY MOUTH DAILY Start: 05-04-2023 take 1 tablet by shaheen th once daily Valsartan Active 0 .ROUTE .COMPLEX 90 May 04, 2023 1:04pm TAKE 1 TABLET [...] Start: 11-05-2022 take 1 tablet by shaheen th once daily Valsartan Active 0 .ROUTE .COMPLEX 90 November 05, 2022 1:57pm TAKE 1 TABLET BY MOUTH DAILY Start: 07-05-2022 End: 10-29-2024 take 1 tablet by mouth once daily Valsartan 160 mg tablet Discontinued 0 .ROUTE .COMPLEX 90 April 17, 2024 1:41pm October 29, 2024 10:54am TAKE 1 TABLET BY MOUTH DAILY Problems Problem Classification Problem Date Documented Da te Episodic/Chronic Aortic; peripheral; and visceral artery aneurysms (13 sources) Aortic aneurysm; Translations: [Aortic aneurysm of unspecified site, without rupture] Onset: 12-07-2024 10-10-2024 Chronic Diabetes mellitus without complication (20 sources) Hyperglycemia; Translations: [Hyperglycemia, unspecified] Onset: 10-09-2024 Episodic Essential hypertension (20 sources) Essential hypertension; Translations: [Essential (primary) hypertension] Onset: 10-09-2024 Chronic Gastrointestinal hemorrhage (13 sources) Rectal hemorrhage; Translations: [Hemorrhage of anus and rectum] 07-09-2019 Episodic Osteoporosis (20 sources) Osteoporosis; Translations: [Age-related osteoporosis without current pathological fracture] Onset: 10-30-2024 10-14-2022 Chronic Other diseases of veins and lymphatics (11 sources) Venous insufficiency of leg; Translations: [Venous insufficiency (chronic) (peripheral)] 07-05-2022 Episodic Other diseases of veins and lymphatics (2 sources) Venous insufficiency (chronic) (peripheral); Translations: [Venous (peripheral) insufficiency, unspecified] 07-05-2022 Episodic Other inflammatory condition of skin (13 sources) Rosacea; Translations: [Rosacea, unspecified] 04-22-2021 Chronic Other nutritional; endocrine; and metabolic disorders (13 sources) Obese class I; Translations: [Obesity, unspecified] 04-22-2021 Chronic Other nutritional; endocrine; and metabolic disorders (1 source) Obesity, unspecified; Translations: [Obesity, unspecified] Chronic Unclassified (1 source) Aneurysm of the ascending aorta, without rupture; Translations: [Aneurysm of the ascending aorta, without rupture] Onset: 12-28-2024 Results Test Name Value Interpretation Reference Range Facility Echo [facility] 12-20-2024 Echo [facility] Cardiovascular Services [address] [place] [address] Echo Complete 12/20/24 1352 MR#: [id number] Acct: [id number] Name: TATY YIN Rep #: [id number] : 1955 69 From: Bravo Solomon MD Attending Dr: ROBSON Schrader Status: REG CLI Ordering Dr: Farida Snow Date: 12/20/24 Location: [facility] Sex: F C Admitted: Reason For Study Reason For Study: Thoracic Ao Aneurysm Procedure This was a 2D Doppler, Color Flow transthoracic echocardiogram. Exam performed in department. Left Ventricle Normal LV size. The left ventricular ejection fraction is 70 %. Stage 1 diastolic dysfunction. No regional wall motion abnormalities noted. Right Ventricle Normal RV size. Normal systolic function. Atria Normal left atrium. Normal right atrium. Bubble contrast study is negative for PFO/ASD. Mitral Valve Normal mitral valve. Tricuspid Valve Normal tricuspid valve. Mild (1+) tricuspid valve insufficiency. Pulmonary artery systolic pressure is 30 mmHg. Aortic Valve Trisinus/trileaflet aortic valve. Pulmonic Valve The pulmonic valve is not well visualized. Great Vessels Mildly dilated aortic root. The pulmonary artery is normal size. Normal inferior vena cava. Pericardium/Pleural No pericardial effusion. Medication 22 gauge I.V. with prn adaptor inserted into right arm. Performed a rapid injection of agitated mix of 9 cc saline and 1cc air to assess for atrial septal defect. MMode/2D Measurements Calculations LVIDd: 4.3 cm IVSd: 1.1 cm Ao root diam: 4.2 cm LVIDs: 1.9 cm LVPWd: 1.0 cm RVDd: 3.1 cm FS: 55.7 % LAV(MOD-bp): 37.6 ml LVAd ap4: 23.1 cm2 LVAd ap2: 24.3 cm2 LAV(MOD-bp) Indexed: 21.7 ml/m2 LVLd ap4: 7.0 cm LVLd ap2: 7.1 cm LAV(MOD-sp2): 37.6 ml EDV(MOD-sp4): 63.7 ml EDV(MOD-sp2): 69.5 ml LAV(MOD-sp4): 36.6 ml EDV(sp4-el): 65.0 ml EDV(sp2-el): 70.1 ml LVAs ap4: 12.2 cm2 LVAs ap2: 11.3 cm2 LVLs ap4: 5.6 cm LVLs ap2: 6.0 cm ESV(MOD-sp4): 22.8 ml ESV(MOD-sp2): 17.9 ml ESV(sp4-el): 22.5 ml ESV(sp2-el): 18.1 ml EF(MOD-sp4): 64.1 % EF(MOD-sp2): 74.3 % EF(sp4-el): 65.4 % SV(MOD-sp4): 40.9 ml SV(MOD-sp2): 51.6 ml SV(sp4-el): 42.5 ml SI(MOD-sp4): 23.6 ml/m2 SI(MOD-sp2): 29.7 ml/m2 LA A4 area: 14.4 cm2 LA dimension(2D): 3.5 cm RA A4 area: 11.1 cm2 TAPSE: 1.7 cm Time Measurements MV dec time: 0.32 sec Doppler Measurements Calculations MV E max hiram: 74.8 cm/sec Lat Peak E' Hiram: 8.5 cm/sec Med Peak E' Hiram: 5.7 cm/sec MV A max hiram: 92.3 cm/sec E/E' lat: 8.8 E/E' med: 13.0 MV E/A: 0.81 MV dec slope: 235.4 cm/sec2 Ao V2 max: 186.2 cm/sec LV V1 max: 136.2 cm/sec Ao max P.9 mmHg LV V1 max P.4 mmHg Ao V2 mean: 109.5 cm/sec LV V1 mean P.6 mmHg Ao mean P.9 mmHg LV V1 mean: 86.0 cm/sec Ao V2 VTI: 30.3 cm LV V1 VTI: 26.8 cm AV (velocity ratio): 0.88 PA V2 max: 107.6 cm/sec TR max hiram: 251.4 cm/sec TR max P.3 mmHg ECHO/Echo Complete Interpretation Summary Normal LV size. The left ventricular ejection fraction is 70 %. Bubble contrast study is negative for PFO/ASD. Stage 1 diastolic dysfunction. Mildly dilated aortic root. Measuring 4.2 cm. Pulmonary artery systolic pressure is 30 mmHg. Ordering Physician: Farida Snow Referring Physician: Farida Snow Performed By: Maria C Torres RDCS 12/20/24 1813 Date Bravo Solomon MD CC: ROBSON Schrader; Dr. Danie Alberto MD Date Dictated: 12/20/24 1352 Date Transcribed: 12/20/241812 Pediatric Surgeon: Signed Normal [facility] Echocardiogram study reportO rdered By: Bravo Solomon on 12-20-2024 Study report [facility] Cardiovascular Services [address] [place] [address] Echo Complete 12/20/24 1352 MR#: [id number] Acct: [id number] Name: TATY YIN Rep #:[id number] : 1955 69 From: Bravo Sanchez Attending Dr: ROBSON Schrader Stat us: REG CLI Ordering Dr: Farida Snow Date: Location: [facility] Sex: F C Admitted: Reason For Study Reason For Study: Thoracic Ao Aneurysm Procedure This was a 2D Doppler, Color Flow transthoracic echocardiogram. Exam performed in department. Left Ventricle Normal LV size. The left ventricular ejection fraction is 70 %. Stage 1 diastolic dysfunction. No regional wall motion abnormalities noted. Right Ventricle Normal RV size. Normal systolic function. Atria Normal left atrium. Normal right atrium. Bubble contrast study is negative for PFO/ASD. Mitral Valve Normal mitral valve. Tricuspid Valve Normal tricuspid valve. Mild (1+) tricuspid valve insufficiency. Pulmonary artery systolic pressure is 30 mmHg. Aortic Valve Trisinus/trileaflet aortic valve. Pulmonic Valve The pulmonic valve is not well visualized. Great Vessels Mildly dilated aortic root. The pulmonary artery is normal size. Normal inferiorvena cava. Pericardium/Pleural No pericardial effusion. Medication 22 gauge I.V. with prn adaptor inserted into right arm. Performed a rapid injection of agitated mix of 9 cc saline and 1cc air to assess for atrial septal defect. MMode/2D Measurements & Calculations LVIDd: 4.3 cm IVSd: 1.1 cm Ao root diam: 4.2 cm LVIDs: 1.9 cm LVPWd: 1.0 cm RVDd: 3.1 cm FS: 55.7 % LAV(MOD-bp): 37.6 ml LVAd ap4: 23.1 cm2 LVAd ap2: 24.3 cm2 LAV(MOD-bp) Indexed: 21.7 ml/m2 LVLd ap4: 7.0 cm LVLd ap2: 7.1 cm LAV(MOD-sp2): 37.6 ml EDV(MOD-sp4): 63.7 ml EDV(MOD-sp2): 69.5 ml LAV(MOD-sp4): 36.6 ml EDV(sp4-el): 65.0 ml EDV(sp2-el): 70.1 ml LVAs ap4: 12.2 cm2 LVAs ap2: 11.3 cm2 LVLs ap4: 5.6 cm LVLs ap2: 6.0 cm ESV(MOD-sp4): 22.8 ml ESV(MOD-sp2): 17.9 ml ESV(sp4-el): 22.5 ml ESV(sp2-el): 18.1 ml EF(MOD-sp4): 64.1 % EF(MOD-sp2): 74.3 % EF(sp4-el): 65.4 % SV(MOD-sp4): 40.9 ml SV(MOD-sp2): 51.6 ml SV(sp4-el): 42.5 ml SI(MOD-sp4): 23.6 ml/m2 SI(MOD-sp2): 29.7 ml/m2 LA A4 area: 14.4 cm2 LA dimension(2D): 3.5 cm RA A4 area: 11.1 cm2 TAPSE: 1.7 cm Time Measurements MV dec time: 0.32 sec Doppler Measurements & Calculations MV E max hiram: 74.8 cm/sec Lat Peak E' Hiram: 8.5 cm/sec Med Peak E' Hiram: 5.7 cm/sec MV A max hiram: 92.3 cm/sec E/E' lat: 8.8 E/E' med: 13.0 MV E/A: 0.81 MV dec slope: 235.4 cm/sec2 Ao V2 max: 186.2 cm/sec LV V1 max: 136.2 cm/sec Ao max P.9 mmHg LV V1 max P.4 mmHg Ao V2 mean: 109.5 cm/sec LV V1 mean P.6 mmHg Ao mean P.9 mmHg LV V1 mean: 86.0 cm/sec Ao V2 VTI: 30.3 cm LV V1 VTI: 26.8 cm AV (velocity ratio): 0.88 PA V2 max: 107.6 cm/sec TR max hiram: 251.4 cm/sec TR max P.3 mmHg ECHO/Echo Complete Interpretation Summary Normal LV size. The left ventricular ejection fraction is 70 %. Bubble contrast study is negative for PFO/ASD. Stage 1 diastolic dysfunction. Mildly dilated aortic root. Measuring 4.2 cm. Pulmonary artery systolic pressure is 30 mmHg. Ordering Physician: Farida Snow Referring Physician: Farida Snow Performed By: Maria C Torres RDCS 12/20/241812 Date _ Bravo Solomon MD CC: ROBSON Schrader; Dr. Danie Alberto MD ~ Date Dictated: 12/20/24 1352 Date Transcribed: 12/20/241812 Pediatric Surgeon: Signed [facility] Work Phone: Internal Medicine Office Vis sera 12-07-2024 Internal Medicine Office Visit [facility] [address] [place] [address] [place] [address] [place] [address] OFFICE VISIT Date of Service: 12/07/24 MR#: [id number] Acct: [id number] Name: TATY YIN #: [id number] : 1955 Provider: Dr. Danie mclain MD Age/Sex: 69/F Location: [facility] Status: Signed Intake Vital Signs 09/06/24 15:55 12/07/24 08:10 Height 5 ft 3 in 5 ft 3 in Weight: 155 lb BMI 27.4 BP 114/58 L Blood Pressure Location Lt brachial Position Sitting Respiration 18 Pulse 72 Pulse Source Monitor Temp 97.7 F L Temp Source Temporal Pulse Oximetry (%) 97 Oxygen Delivery Method room air Intake Visit Reasons: 3 m fu Chief Complaint: 3 m fu Is patient in pain?: No Allergies No Known Allergies Allergy (Verified 12/07/24 08:10) Medications ???Medication ???Instructions ???Recorded ???Confirmed ???Type betamethasone dipropionate 0.05 % 1 applic topical DAILY PRN 12/07/24 History topical cream ivermectin 1 % topical cream 1 applic topical DAILY PRN 3 12/07/24 History clobetasol 0.05 % scalp solution 1 applic topical DAILY 02/14/23 History alendronate 70 mg tablet 70 mg PO QWEEK #14 tabs 01/04/24 0 12/07/24 Rx Held on 01/04/24. Instructions: Dental concerns calcium carbonate (Calcium 600) 600 mg PO BID 01/04/24 12/07/24 Hi story cholecalciferol (vitamin D3) 50 50 mcg PO BID 01/04/24 12/07/24 Hi story mcg (2,000 unit) capsule valsartan 160 mg tablet See Rx Instructions .Route 5 12/07/24 Rx .COMPLEX #90 tabs clobetasol 0.05 % shampoo topical 11/14/24 12/07/24 History Have you fallen in the past year?: [...] participate in: none HPI HPI Chief Complaint: 3 m fu Details: TATY YIN, is a 69-year-old female presenting with a routine follow-up for management of Type 2 Diabetes Mellitus, aortic aneurysm, and hypertension. History of borderline diabetes mellitus. A1c today is at 6.2 up from 6. She acknowledges that her exercise routine has not progressed as hoped. Currently not on any medication. Incidental finding of thoracic aortic aneurysm following coronary calcium scoring. Referred to vascular and had a CTA done which showed slight reduction compared to initial assessment. Plan is for an echo. Family history of ruptured aneurysm. The patient's hypertension is under control, with recent readings at home around 120/80 mmHg. She denies any lightheadedness, though notes that her blood pressure tends to rise during the workday. The patient reports her sleep is good, and she has not experienced any significant changes or concerning symptoms. Other chronic medical conditions are stable. Attestation: Documentation on this patient encounter was supported using ambient scribe technology/ voice AI technology. The patient consented to recording for the purpose of documenting the encounter. Provider reviewed content of the generated note prior to signature. ROS Const Constitutional: No body ache, chills, excessive sweating, fatigue, fever(s), frequent falls, headache(s), snoring, weight change, sleep problems, abnormal sleep pattern or change in appetite Eyes Eyes: No blurry vision, change in vision, vision loss, dry eyes, eye pain or Light sensitivity ENT ENT: No abnormal hearing, ear or mastoid pain, tinnitus, nasal congestion, headache(s), neck pain or sore throat Resp Respiratory: No cough, excessive phlegm production, hemoptysis, shortness of breath, snoring or wheezing Cardio Cardiology: No chest pain at rest, chest pain with exertion, excessive sweating, shortness of breath, dyspnea on exertion, lightheadedness, orthopnea or palpitations Gastro GI: No abdominal pain, change in bowel habits, constipation, cramping, diarrhea, nausea/dyspepsia or vomiting Genitourinary-Female: No burning urination, painful urina (more content not included)... Normal [facility] Laboratory - Hematology and Cell countsOrdered By: Danie Alberto on 12-07-2024 HbA1c (Bld) [Mass fraction] 6.2 % 4.2-6.3 [facility] CTA Chst, Abd, Pel W and/or WOon 11-29-2024 CTA Chst, Abd, Pel W and/or WO [facility] Imaging Services [address] [place] [address] CTA Chst, Abd, Pel W and/or WO MR#: [id number] Acct: [id number] Name: TATY YIN Rep #: [id number] : 1955 F 69 From: Vicente ewing MD PCP: Dr. Danie Alberto MD Status: REG CLI Study: CTA Chst, Abd, Pel W and/or WO Date of Exam: 0 11/29/24 Exam# [id number] Ordering Dr: Farida Snow PROCEDURE: CTA CHST, ABD, PEL W AND/OR WO 11/29/2024 REASON FOR EXAM: ASC AORTIC ANEURYSM, EVAL FOR THORACOABDOMINAL TECHNIQUE: Chest and abdomen CT with intravenous contrast. Coronal and Sagittal reconstruction series were provided. One or more dose reduction techniques were used (e.g., Automated exposure control, adjustment of the mA and/or kV according to patient size, use of iterative reconstruction technique. PATIENT PREPARATION: Per protocol ORAL CONTRAST TYPE: None. CONTRAST: Isovue 370 VOLUME: 100 mL RADIATION DOSE SUMMARY: CTDlvol: 12.2 mGy DLP: 838.94 mGycm COMPARISON: Prior CT scan of the chest dated October 09, 2024. FINDINGS: CT CHEST: Hardware: None Lymph nodes: No significant lymph node is seen. Heart and Vasculature: Aneurysmal dilatation of the ascending thoracic aorta with a transverse dimension of 45.4 mm. No coronary artery calcification is seen. Lungs and Airways: Mild degree of increased linear markings scattered throughout both lungs suggestive of scarring. No focal mass lesion or pulmonary infiltrate is seen. Pleura: No pleural effusion. CT ABDOMEN: Liver: Normal size. No mass. Gallbladder: No evidence of gallstones. Spleen: Normal size. Pancreas: Normal size without evidence of mass surrounding inflammation or ductal dilation. Adrenals: There is hyperplasia of the left adrenal gland. Kidneys: 1.5 cm cyst in the upper medial portion of the left kidney. No evidence of hydronephrosis. 1.6 cm cyst in the posterior medial aspect of the right kidney. Bowel: Sigmoid diverticulosis without radiographic evidence of diverticulitis. Lymph nodes: Unremarkable. Vasculature: Mild atherosclerotic plaque of the abdominal aorta. No evidence of abdominal aortic aneurysm. Peritoneum / Retroperitoneum: Unremarkable Bones: Degenerative changes of the spine. CT/CTA Chst, Abd, Pel W and/or WO IMPRESSION: Coronary artery calcification (CAC) is is absent Dilatation of the ascending thoracic aorta with a transverse dimension of 45.4 mm. No evidence of abdominal aortic aneurysm. Mild linear scarring in both lungs. Small bilateral renal cysts. Reading Location: [id number] CC: ROBSON Schrader; Dr. Danie Alberto MD Pediatric Surgeon: Signed Normal [facility] MR/BMS.BVSon 11-14-2024 MR/BMS.BVS [facility] Vascular Surgery [address] [place] [address]. [address] [place] [address] OFFICE VISIT Date of Service: 11/14/24 MR#: [id number] Acct: [id number] Name: TATY YIN Rep #: [id number] : 1955 Provider: ROBSON Schrader Age/Sex: 69/F Location: [facility] Status: Signed Intake Vital Signs 09/06/24 15:55 [...] as d (more content not included)... Normal [facility] Coronary Angiography CTon Coronary Angiography CT [facility] Imaging Services [address] [place] [address] 10/15/24 1736 MR#: [id number] Acct: [id number] Name: TATY YIN Rep #: [id number] : 1955 69 From: Bravo Solomon MD [...] MD; Dr. Danie Alberto MD Signed Normal [facility] Limited Chest CT Cardiac Onl yon 10-09-[address] Cardiac Only [facility] Imaging Services [address] [place], [place] [address] Limited Chest CT Cardiac Only MR#: [id number] Acct: [id number] Name: TATY YIN Rep #: [id number] : 1955 From: Cristi Sanchez PCP: Dr. Danie Alberto MD Status: REG REF Study: Limited Chest CT Cardiac Only Date of Exam: Exam# [id number] Ordering Dr: Danie Alberto MD PROCEDURE: LIMITED [...] abdomen demonstrates no significant abnormality. Reading Location: [address] CC: Dr. Danie Alberto MD Pediatric Surgeon: Signed Normal [facility] Bone density reportOrdered B y: Vicente Marroquin on 09-13-2024 Study report Skeletal system DXA [facility] Imaging Services [address] [place] [address] Dexa Bone Density Study MR#: [id number] Acct: [id number] Name: TATY YIN Rep #: [id number] : 1955 F 69 From: Hugo Marroquin MD PCP: Dr. Danie Alberto MD Status: R EG CLI Study:Dexa Bone Density Study Date of Exam: 09/13/24 Exam# [id number] Ordering Dr: Dax Alberto MD PROCEDURE: DEXA [...] Recommend follow-up as clinically warranted. Reading Location: [facility] CC: Dr. Danie Alberto MD ~ Pediatric Surgeon: Signed [facility] Dexa Bone Density Studyon Dexa Bone Density Study [facility] Imaging Services [address] [place] [address] Dexa Bone Density Study MR#: [id number] Acct: [id number] Name: TATY YIN Rep #: [id number] : 1955 F 69 From: Vicente ewing MD PCP: Dr. Danie Alberto MD Status: REG CLI Study: Dexa Bone Density Study Date of Exam: 09/13/24 Exam# [id number] Ordering Dr: Danie Alberto MD PROCEDURE: DEXA BONE DENSITY STUDY 09/13/2024 REASON FOR EXAM: OSTEOPOROSIS F, age 69 y/o . Postmenopausal. TECHNIQUE: DXA scan of sites with data reported below. [facility] LINKS[facility] COMPARISON: None FINDINGS: BMD and [...] Recommend follow-up as clinically warranted. Reading Location: [facility] CC: Dr. Danie Alberto MD Pediatric Surgeon: Signed Normal [facility] Internal Medicine Office Vis itocy 09-06-2024 Internal Medicine Office Visit [facility] [place], [place] [address] OFFICE VISIT Date of Service: 09/06/24 MR#: [id number] Acct: [id number] Name: TATY YIN Rep #: [id number] : 1955 Provider: Dr. Danie mclain MD Age/Sex: 69/F Location: [facility] [place].[facility] Status: Signed Intake Vital Signs 05/09/24 15:12 [...] M FU Chief Complaint: 4 M FU Budget Clerk Required: No Accompanied by: Self Is patient in pain?: No Allergies No Known Allergies Allergy (Verified 09/06/24 15:52) Medications ???Medication ???Instructions ???Recorded ???Confirmed ???Type betamethasone dipropionate 0.05 % 1 applic topical DAILY PRN 09/06/24 History topical cream ivermectin 1 % topical cream 1 applic topical DAILY PRN 3 09/06/24 History clobetasol 0.05 % scalp [...] habits, constipation, cramping, diarrhea, nausea/dyspepsia or vomiting Genitourinary-Female: No burning urination, painful urination, urinary incontinence, [...] in appetit (more content not included)... Normal [facility] Laboratory - Hematology and Cell countsOrdered By: Danie Alberto on 09-06-2024 HbA1c (Bld) [Mass fraction] 6.0 % 4.2-6.3 [facility] CBC W/Diff, Automatedon Absolute Lymph 3.08 X10 3/uL Normal 0.83-4.51 [facility] Comment on above: Performed By: #### L 100.0100, L500.4050, L501.9985, L500.4100, L506.1000 #### [facility] Laboratory [address] [place], [address] Absolute Neut 6.2 X10 3/uL Normal 2.0-7.7 [facility] Comment on above: Performed By: #### L 100.0100, L500.4050, L501.9985, L500.4100, L506.1000 #### [facility] Laboratory [address] [place], [address] Basophils/100 WBC (Bld) 0.6 % Normal 0-1 [facility] Comment on above: Performed By: #### L 100.0100, L500.4050, L501.9985, L500.4100, L506.1000 #### [facility] [address] [place], [address] Eosinophils/100 WBC (Bld) 1.0 % Normal 0-5 [facility] Comment on above: Performed By: #### L 100.0100, L500.4050, L501.9985, L500.4100, L506.1000 #### [facility] [address] [place], [address] Erythrocyte distribution width (RBC) [Ratio] 13.5 % Normal 11.6-14.6 [facility] Comment on above: Performed By: #### L 100.0100, L500.4050, L501.9985, L500.4100, L506.1000 #### [facility] [address] [place], [address] Hematocrit (Bld) [Volume fraction] 41.4 % Normal 37-47 [facility] Comment on above: Performed By: #### L 100.0100, L500.4050, L501.9985, L500.4100, L506.1000 #### [facility] [address] [place], [address] Hemoglobin (Bld) [Mass/Vol] 13.6 g/dL Normal 12.0-15.0 [facility] Comment on above: Performed By: #### L 100.0100, L500.4050, L501.9985, L500.4100, L506.1000 #### [facility] [address], [address] IG% 0.400 Normal 0.0-0.9 [facility] Comment on above: Result Comment: IG% - Immature Granulocytes (promyelocytes, myelocytes and metamyelocytes) > 1% indicates that a LEFT SHIFT is Present. Performed By: #### L 100.0100, L500.4050, L501.9985, L500.4100, L506.1000 #### [facility] [address], [address] Lymphocytes/100 WBC (Bld) 30.5 % Normal 19-41 [facility] Comment on above: Performed By: #### L 100.0100, L500.4050, L501.9985, L500.4100, L506.1000 #### [facility] [address] [place], [address] MCH (RBC) [Entitic mass] 29.7 pg Normal 27.0-32.0 [facility] Comment on above: Performed By: #### L 100.0100, L500.4050, L501.9985, L500.4100, L506.1000 #### [facility] [address] [place], [address] MCHC (RBC) [Mass/Vol] 32.9 g/dL Normal 32-36 [facility] Comment on above: Performed By: #### L 100.0100, L500.4050, L501.9985, L500.4100, L506.1000 #### [facility] [address] [place], [address] MCV (RBC) [Entitic vol] 90.4 fL Normal 81-99 [facility] [place] Comment on above: Performed By: #### L 100.0100, L500.4050, L501.9985, L500.4100, L506.1000 #### [facility] [address] [place], [address] Monocytes/100 WBC (Bld) 6.5 % Normal 0-10 [facility] Comment on above: Performed By: #### L 100.0100, L500.4050, L501.9985, L500.4100, L506.1000 #### [facility] [address] [place], [address] Neutrophils/100 WBC (Bld) 61.0 % Normal 47-70 [facility] Comment on above: Performed By: #### L 100.0100, L500.4050, L501.9985, L500.4100, L506.1000 #### [facility] [address] [place], [address] Nucleated RBC (Bld) [#/Vol] 0 10*3/uL Normal 0-5 [facility] Comment on above: Performed By: #### L 100.0100, L500.4050, L501.9985, L500.4100, L506.1000 #### [facility] [address] [place], [address] Platelet mean volume (Bld) [Entitic vol] 9.5 fL Normal 6.2-12.0 [facility] Comment on above: Performed By: #### L 100.0100, L500.4050, L501.9985, L500.4100, L506.1000 #### [facility] [address] [place], [address] Platelets (Bld) [#/Vol] 397 10*3/uL Normal 150-450 [facility] Comment on above: Performed By: #### L 100.0100, L500.4050, L501.9985, L500.4100, L506.1000 #### [facility] [address] [place], [address] RBC (Bld) [#/Vol] 4.58 10*6/uL Normal 4.2-5.4 [facility] Comment on above: Performed By: #### L 100.0100, L500.4050, L501.9985, L500.4100, L506.1000 #### [facility] [address] [place], [address] RDW SD 44.7 fl High 35.1-43.9 [facility] Comment on above: Performed By: #### L 100.0100, L500.4050, L501.9985, L500.4100, L506.1000 #### [facility] [address] [place], [address] WBC (Bld) [#/Vol] 10.1 10*3/uL Normal 4.4-11.0 [facility] Comment on above: Performed By: #### L 100.0100, L500.4050, L501.9985, L500.4100, L506.1000 #### [facility] [address] [place], [address] Comprehensive Metabolic Prof il 05-09-2024 Albumin [Mass/Vol] 3.6 g/dL Normal 3.2-5.0 [facility] Comment on above: Performed By: #### L 100.0100, L500.4050, L501.9985, L500.4100, L506.1000 #### [facility] [address] [place], [address] Albumin/Globulin [Mass ratio] 0.9 {ratio} Normal 0.9-2.4 [facility] Comment on above: Performed By: #### L 100.0100, L500.4050, L501.9985, L500.4100, L506.1000 #### [facility] [address] [place], [address] ALK P 46 U/L Normal 45-117 [facility] Comment on above: Performed By: #### L 100.0100, L500.4050, L501.9985, L500.4100, L506.1000 #### [facility] [address] [place], [address] ALT [Catalytic activity/Vol] 23 U/L Normal 13-56 [facility] Comment on above: Performed By: #### L 100.0100, L500.4050, L501.9985, L500.4100, L506.1000 #### [facility] [address] [place], [address] AST [Catalytic activity/Vol] 15 U/L Normal 15-37 [facility] Comment on above: Performed By: #### L 100.0100, L500.4050, L501.9985, L500.4100, L506.1000 #### [facility] [address] [place], [address] Bilirubin [Mass/Vol] 0.40 mg/dL Normal 0.20-1.00 [facility] Comment on above: Result Comment: For patients on eltrombopag therapy, use of Dimension [place] TBIL is not recommended. Performed By: #### L 100.0100, L500.4050, L501.9985, L500.4100, L506.1000 #### [facility] [address] [place], [address] BUN/CRE 20.8 RATIO High 10-20 [facility] Comment on above: Performed By: #### L 100.0100, L500.4050, L501.9985, L500.4100, L506.1000 #### [facility] [address] [place], [address] CA,Total 9.3 mg/dL Normal 8.5-10.1 [facility] Comment on above: Performed By: #### L 100.0100, L500.4050, L501.9985, L500.4100, L506.1000 #### [facility] [address] [place], [address] Chloride [Moles/Vol] 102 mmol/L Normal 98-107 [facility] Comment on above: Performed By: #### L 100.0100, L500.4050, L501.9985, L500.4100, L506.1000 #### [facility] [address] [place], [address] CO2 [Moles/Vol] 27.0 mmol/L Normal 21.0-32.0 [facility] Comment on above: Performed By: #### L 100.0100, L500.4050, L501.9985, L500.4100, L506.1000 #### [facility] [address] [place], [address] Creatinine [Mass/Vol] 0.96 mg/dL Normal 0.55-1.02 [facility] Comment on above: Result Comment: The validity of the calculated GFR GFRAA in patients over 70 years has not been determined. Clinical correlation is essential. Performed By: #### L 100.0100, L500.4050, L501.9985, L500.4100, L506.1000 #### [facility] [address] [place], [address] EST GFR - AA 74 mL/min Normal >60 [facility] Comment on above: Result Comment: Afri can Irish GFR Calc Performed By: #### L 100.0100, L500.4050, L501.9985, L500.4100, L506.1000 #### [facility] [address] [place], [address] GAP 6 Normal 5-15 [facility] Comment on above: Performed By: #### L 100.0100, L500.4050, L501.9985, L500.4100, L506.1000 #### [facility] [address] [place], [address] GFR/1.73 sq M.predicted among non-blacks MDRD (S/P/Bld) [Vol rate/Area] 61 mL/min/{1.73_m2} Normal >60 [facility] Comment on above: Result Comment: Non- GFR Calc Performed By: #### L 100.0100, L500.4050, L501.9985, L500.4100, L506.1000 #### [facility] [address] [place], [address] Globulin (S) [Mass/Vol] 4.0 g/dL Normal 2.2-4.2 [facility] Comment on above: Performed By: #### L 100.0100, L500.4050, L501.9985, L500.4100, L506.1000 #### [facility] [address] [place], [address] Glucose [Mass/Vol] 107 mg/dL High 74-106 [facility] Comment on above: Result Comment: Fast ing Glucose result from 100 to 125 mg/dL suggests IMPAIRED HOMEOSTASIS per A.D.A. criteria. Performed By: #### L 100.0100, L500.4050, L501.9985, L500.4100, L506.1000 #### [facility] [address] [place], [address] Potassium [Moles/Vol] 4.0 mmol/L Normal 3.5-5.1 [facility] Comment on above: Performed By: #### L 100.0100, L500.4050, L501.9985, L500.4100, L506.1000 #### [facility] [address] [place], [address] Sodium [Moles/Vol] 135 mmol/L Low 136-145 [facility] Comment on above: Performed By: #### L 100.0100, L500.4050, L501.9985, L500.4100, L506.1000 #### [facility] [address] [place], [address] T PROT 7.6 g/dL Normal 6.4-8.2 [facility] Comment on above: Performed By: #### L 100.0100, L500.4050, L501.9985, L500.4100, L506.1000 #### [facility] [address] [place], [address] Urea nitrogen [Mass/Vol] 20 mg/dL High 7-18 [facility] Comment on above: Performed By: #### L 100.0100, L500.4050, L501.9985, L500.4100, L506.1000 #### [facility] [address] [place], [address] Hemoglobin A1con 05-09-2024 HbA1c (Bld) [Mass fraction] 6.2 % High 3.8-5.6 [facility] Comment on above: Result Comment: Norm al < 5.7 % Prediabetic 5.7 - 6.4 % Diabetic >or= 6.5 % Please note range changes. Performed By: #### L 100.0100, L500.4050, L501.9985, L500.4100, L506.1000 ####[facility] [id number] [place], [address] Internal Medicine Office Vis iton 05-09-2024 Internal Medicine Office Visit [facility] [address] [place] [address] [place] [address] OFFICE VISIT Date of Service: 05/09/24 MR#: [id number] Acct: [id number] Name: TATY YIN Rep #: [id number] : 1955 Provider: Dr. 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 Normal [facility] Lipid Profileon 05-09-2024 Cholesterol [Mass/Vol] 211 mg/dL High 200 [facility] Comment on above: Result Comment: <200 mg/dL Desirable 200-240 mg/dL Borderline >240 mg/dL High Risk Performed By: #### L 100.0100, L500.4050, L501.9985, L500.4100, L506.1000 #### [facility] [address] [place], [address] Cholesterol in HDL [Mass/Vol] 52 mg/dL Normal [facility] Comment on above: Result Comment: The drugs N-Acetylcysteine and Metamizole may falsely depress this assay. Reference Range HDL <40 mg/dL Low HDL Cholesterol HDL >or= 60 mg/dL High HDL Cholesterol Performed By: #### L 100.0100, L500.4050, L501.9985, L500.4100, L506.1000 #### [facility] [address], [address] Cholesterol in LDL [Mass/Vol] 129 mg/dL Normal 0-130 [facility] Comment on above: Performed By: #### L 100.0100, L500.4050, L501.9985, L500.4100, L506.1000 #### [facility] [address] [place], [address] Cholesterol in VLDL [Mass/Vol] 30 mg/dL Normal 5-40 [facility] Comment on above: Performed By: #### L 100.0100, L500.4050, L501.9985, L500.4100, L506.1000 #### [facility] [address] [place], [address] Triglyceride [Mass/Vol] 152 mg/dL Normal [facility] Comment on above: Result Comment: The drugs N-Acetylcysteine and Metamizole may falsely depress this assay. Serum Triglycerides Reference Interval Normal <150 mg/dL Borderline high 150 - 199 mg/dL High 200 - 499 mg/dL Very High > or = 500 mg/dL Performed By: #### L 100.0100, L500.4050, L501.9985, L500.4100, L506.1000 #### [facility] [address] [place], [address] Vitamin D,25 Hydroxyon 05-09 Vitamin D 25-OH 31.7 ng/mL Normal [facility] Comment on above: Result Comment: Tata min D 25(OH) Status Range Deficiency <20 ng/mL (50nmol/L) Insufficiency 20 - 30 ng/mL (50 - 75 nmol/L) Sufficiency 30 - 100 ng/mL (75 - 250 nmol/L) Toxicity >100 ng/mL (>250 nmol/L) Performed By: #### L 100.0100, L500.4050, L501.9985, L500.4100, L506.1000 ####[facility] [id number] [place], [address] Internal Medicine Office Vis sera 09-04-2024 Internal Medicine Office Visit [facility] [address] [place] [address] [place] [address] OFFICE VISIT Date of Service: 01/04/24 MR#: [id number] Acct: [id number] Name: TATY YIN Rep #: [id number] : 1955 Provider: Dr. Danie mclain MD Age/Sex: 68/F Location: [facility] [place] Status: Signed Intake Vital Signs 08/31/23 13:59 [...] month f/u Chief Complaint: 4 M FU Budget Clerk Required: No Accompanied by: Self Is patient [...] habits, constipation, cramping, diarrhea, nausea/dyspepsia or vomiting Genitourinary-Female: No burning urination, painful urination, urinary incontinence, [...] of menezes (more content not included)... Normal [facility] Absolute lymphocyte countOrd ered By: Danie Alberto on 08-29-2023 Lymphocytes Auto (Unsp spec) [#/Vol] 2.68 10*3/uL 0.83-4.51 [facility] Automated lymphocyte count a s percentage of total leukocytesOrdered By: Danie Alberto on 08-29-2023 Lymphocytes/100 WBC Auto (Unsp spec) 29.0 % 19-41 [facility] Basophil percentageOrdered B y: Danie Alberto on 08-29-2023 Basophils/100 WBC (Bld) 0.9 % 0-1 [facility] Bilirubin [Mass/Vol] 0.30 mg/dL 0.20-1.00 [facility] Comment on above: For patients on eltr ombopag therapy, use of Dimension [place] TBIL is not recommended. Chloride [Moles/Vol] 108 mmol/L 98-107 [facility] Cholesterol [Mass/Vol] 202 mg/dL <200 [facility] Comment on above: <200 mg/dL Desirable 200-240 mg/dL Borderline >240 mg/dL High Risk Eosinophils/100 WBC (Bld) 3.5 % 0-5 [facility] Glucose [Mass/Vol] 124 mg/dL 74-106 [facility] Comment on above: Fasting Glucose resu lt from 100 to 125 mg/dL suggests IMPAIRED HOMEOSTASIS per A.D.A. criteria. Hemoglobin (Bld) [Mass/Vol] 13.4 g/dL 12.0-15.0 [facility] Monocytes/100 WBC (Bld) 6.8 % 0-10 [facility] Neutrophils (Bld) [#/Vol] 5.5 10*3/uL 2.0-7.7 [facility] Neutrophils/100 WBC (Bld) 59.4 % 47-70 [facility] Potassium [Moles/Vol] 4.1 mmol/L 3.5-5.1 [facility] Protein [Mass/Vol] 7.6 g/dL 6.4-8.2 [facility] Sodium [Moles/Vol] 137 mmol/L 136-145 [facility] Triglyceride [Mass/Vol] 142 mg/dL <199 [facility] Comment on above: The drugs N-Acetylcy steine and Metamizole may falsely depress this assay.Serum Triglycerides Reference Interval Normal <150 mg/dL Borderline high 150 - 199 mg/dL High 200 - 499 mg/dL Very High > or = 500 mg/dL WBC (Bld) [#/Vol] 9.2 10*3/uL 4.4-11.0 [facility] Determination of erythrocyte mean corpuscular volume (MCV)Ordered By: Danie Alberto on 08-29-2023 MCV (RBC) [Entitic vol] 91.3 fL 81-99 [facility] Erythrocyte distribution wid th ratioOrdered By: [facility] Benjamindax on 08-29-2023 Erythrocyte distribution width (RBC) [Ratio] 13.8 % 11.6-14.6 [facility] Erythrocyte distribution wid th standard deviationOrdered By: [facility] Benjamindax on 08-29-2023 Erythrocyte distribution width (RBC) [Entitic vol] 46.5 fL 35.1-43.9 [facility] Hematocrit Auto (Bld) [Volum e fraction]Ordered By: Stefmarcellakosua Alexanderdax on 08-29-2023 Hematocrit (Bld) [Volume fraction] 41.1 % 37-47 [facility] Immature granulocytes/100 WB C Auto (Bld)Ordered By: husseinmarcellakosua Alberto on 08-29-2023 Immature granulocytes/100 WBC (Bld) 0.400 % 0.0-0.9 [facility] Comment on above: IG% - Immature Granu locytes (promyelocytes, myelocytes and metamyelocytes) > 1% indicates that a LEFT SHIFT is Present. Laboratory - Chemistry and C hemistry - challengeOrdered By: Danie Alberto on 08-29-2023 Albumin/Globulin [Mass ratio] 0.9 {ratio} 0.9-2.4 [facility] ALP [Catalytic activity/Vol] 38 U/L 45-117 [facility] ALT [Catalytic activity/Vol] 14 U/L 13-56 [facility] Cholesterol in HDL [Mass/Vol] 46 mg/dL >40 [facility] Comment on above: The drugs N-Acetylcy steine and Metamizole may falsely depress this assay. Reference Range HDL <40 mg/dL Low HDL Cholesterol HDL >or= 60 mg/dL High HDL Cholesterol Cholesterol in LDL [Mass/Vol] 128 mg/dL 0-130 [facility] CO2 [Moles/Vol] 23.0 mmol/L 21.0-32.0 [facility] Globulin (S) [Mass/Vol] 4.1 g/dL 2.2-4.2 [facility] Urea nitrogen/Creatinine [Mass ratio] 22.8 mg/mg 10-20 [facility] Laboratory - Hematology and Cell countsOrdered By: Danie Alberto on 08-29-2023 MCH (RBC) [Entitic mass] 29.8 pg 27.0-32.0 [facility] MCHC (RBC) [Mass/Vol] 32.6 g/dL 32-36 [facility] Nucleated RBC/100 WBC (Bld) [Ratio] 0 % 0-5 [facility] Platelet mean volume (Bld) [Entitic vol] 9.7 fL 6.2-12.0 [facility] Platelets (Bld) [#/Vol] 374 10*3/uL 150-450 [facility] No Panel InformationOrdered By: Danie Alberto on 08-29-2023 Estimated GFR (MDRD) Amer 78 mL/min >60 [facility] Comment on above: GFR Calc Estimated GFR (MDRD) Non-Af Amer 64 mL/min >60 [facility] Comment on above: Non- GFR Calc Vitamin D 25-Hydroxy 32.3 ng/mL [facility] Comment on above: Vitamin D 25(OH) Sta tus Range Deficiency <20 ng/mL (50nmol/L) Insufficiency 20 - 30 ng/mL (50 - 75 nmol/L) Sufficiency 30 - 100 ng/mL (75 - 250 nmol/L) Toxicity >100 ng/mL (>250 nmol/L) VLDL Cholesterol 28 mg/dL 5-40 [facility] RBC Auto (Bld) [#/Vol]Ordere d By: Danie Alberto on 08-29-2023 RBC (Bld) [#/Vol] 4.50 10*6/uL 4.2-5.4 [facility] Serum or plasma calcium abhijeet urement (mass/volume)Ordered By: Danie Alberto on 08-29-2023 Calcium [Mass/Vol] 8.9 mg/dL 8.5-10.1 [facility] Serum or plasma creatinine m easurement (mass/volume)Ordered By: Danie Alberto on 08-29-2023 Creatinine [Mass/Vol] 0.92 mg/dL 0.55-1.02 [facility] Comment on above: The validity of the calculated GFR & GFRAA in patients over 70 years has not been determined. Clinical correlation is essential. Serum or plasma urea nitroge n measurement (mass/volume)Ordered By: Danie Alberto on 08-29-2023 Urea nitrogen [Mass/Vol] 21 mg/dL 7-18 [facility] Thin prep Papanicolaou smear with manual screeningOrdered By: Danie Alberto on 08-29-2023 Thin prep Papanicolaou smear with manual screening 3.5 g/dL 3.2-5.0 [facility] Thin prep Papanicolaou smear with manual screening 16 U/L 15-37 [facility] Thin prep Papanicolaou smear with manual screening 6 5-15 [facility] Whole blood hemoglobin A1c/t otal hemoglobin ratio (mass fraction)Ordered By: Danie Alberto on 08-29-2023 HbA1c (Bld) [Mass fraction] 5.7 % 3.8-5.6 [facility] Comment on above: Normal < 5.7 % Predi abetic 5.7 - 6.4 % Diabetic >or= 6.5 % Please note range changes. Basophil percentageOrdered B y: Danie Alberto on 05-11-2023 Chloride [Moles/Vol] 107 mmol/L 98-107 [facility] Glucose [Mass/Vol] 125 mg/dL 74-106 [facility] Comment on above: Fasting Glucose resu lt from 100 to 125 mg/dL suggests IMPAIRED HOMEOSTASIS per A.D.A. criteria. Potassium [Moles/Vol] 4.3 mmol/L 3.5-5.1 [facility] Sodium [Moles/Vol] 137 mmol/L 136-145 [facility] Laboratory - Chemistry and C hemistry - challengeOrdered By: Danie Alberto on 05-11-2023 CO2 [Moles/Vol] 25.0 mmol/L 21.0-32.0 [facility] Urea nitrogen/Creatinine [Mass ratio] 19.7 mg/mg 10- [facility] No Panel InformationOrdered By: Danie Alberto on 05-11-2023 Estimated GFR (MDRD) Amer 79 mL/min >60 [facility] Comment on above: GFR Calc Estimated GFR (MDRD) Non-Af Amer 65 mL/min >60 [facility] Comment on above: Non- GFR Calc Serum or plasma calcium abhijeet urement (mass/volume)Ordered By: Danie Alberto on 05-11-2023 Calcium [Mass/Vol] 9.5 mg/dL 8.5-10.1 [facility] Serum or plasma creatinine m easurement (mass/volume)Ordered By: Danie Alberto on 05-11-2023 Creatinine [Mass/Vol] 0.91 mg/dL 0.55-1.02 [facility] Comment on above: The validity of the calculated GFR & GFRAA in patients over 70 years has not been determined. Clinical correlation is essential. Serum or plasma urea nitroge n measurement (mass/volume)Ordered By: Danie Alberto on 05-11-2023 Urea nitrogen [Mass/Vol] 18 mg/dL 7-18 [facility] Thin prep Papanicolaou smear with manual screeningOrdered By: Danie Alberto on 05-11-2023 Thin prep Papanicolaou smear with manual screening 5 5-15 [facility] Whole blood hemoglobin A1c/t otal hemoglobin ratio (mass fraction)Ordered By: Danie Benjaminpatriciadax on 05-11-2023 HbA1c (Bld) [Mass fraction] 5.9 % 3.8-5.6 [facility] Comment on above: Normal < 5.7 % Predi abetic 5.7 - 6.4 % Diabetic >or= 6.5 % Please note range changes. Basophil percentageOrdered B y: Danie Dolly on 02-14-2023 Bilirubin [Mass/Vol] 0.30 mg/dL 0.20-1.00 [facility] Comment on above: For patients on eltr ombopag therapy, use of Dimension [place] TBIL is not recommended. Chloride [Moles/Vol] 103 mmol/L 98-107 [facility] Glucose [Mass/Vol] 113 mg/dL 74-106 [facility] Comment on above: Fasting Glucose resu lt from 100 to 125 mg/dL suggests IMPAIRED HOMEOSTASIS per A.D.A. criteria. Potassium [Moles/Vol] 4.3 mmol/L 3.5-5.1 [facility] Protein [Mass/Vol] 7.8 g/dL 6.4-8.2 [facility] Sodium [Moles/Vol] 137 mmol/L 136-145 [facility] Laboratory - Chemistry and C hemistry - challengeOrdered By: Danie Alberto on 02-14-2023 ALP [Catalytic activity/Vol] 49 U/L 45-117 [facility] ALT [Catalytic activity/Vol] 25 U/L 13-56 [facility] CO2 [Moles/Vol] 28.0 mmol/L 21.0-32.0 [facility] Globulin (S) [Mass/Vol] 4.4 g/dL 2.2-4.2 [facility] Urea nitrogen/Creatinine [Mass ratio] 16.0 mg/mg 10-20 [facility] No Panel InformationOrdered By: Danie Alberto on 02-14-2023 Estimated GFR (MDRD) Amer 66 mL/min >60 [facility] Comment on above: GFR Calc Estimated GFR (MDRD) Non-Af Amer 55 mL/min >60 [facility] Comment on above: Non- GFR Calc Vitamin D 25-Hydroxy 29.6 ng/mL [facility] Comment on above: Vitamin D 25(OH) Sta tus Range Deficiency <20 ng/mL (50nmol/L) Insufficiency 20 - 30 ng/mL (50 - 75 nmol/L) Sufficiency 30 - 100 ng/mL (75 - 250 nmol/L) Toxicity >100 ng/mL (>250 nmol/L) Serum or plasma albumin abhijeet urement (mass/volume)Ordered By: Danie Alberto on 02-14-2023 Albumin [Mass/Vol] 3.4 g/dL 3.2-5.0 [facility] Serum or plasma albumin/glob ulin mass ratioOrdered By: Danie Alberto on 02-14-2023 Albumin/Globulin [Mass ratio] 0.8 {ratio} 0.9-2.4 [facility] Serum or plasma calcium abhijeet urement (mass/volume)Ordered By: Danie Alberto on 02-14-2023 Calcium [Mass/Vol] 8.9 mg/dL 8.5-10.1 [facility] Serum or plasma creatinine m easurement (mass/volume)Ordered By: Danie Alberto on 02-14-2023 Creatinine [Mass/Vol] 1.06 mg/dL 0.55-1.02 [facility] Comment on above: The validity of the calculated GFR & GFRAA in patients over 70 years has not been determined. Clinical correlation is essential. Serum or plasma urea nitroge n measurement (mass/volume)Ordered By: Danie Alberto on 02-14-2023 Urea nitrogen [Mass/Vol] 17 mg/dL 7-18 [facility] Thin prep Papanicolaou smear with manual screeningOrdered By: Danie Alberto on 02-14-2023 Thin prep Papanicolaou smear with manual screening 20 U/L 15-37 [facility] Thin prep Papanicolaou smear with manual screening 6 5-15 [facility] Basophil percentageOrdered B y: Dr. Alberto on 08-04-2022 Bilirubin [Mass/Vol] 0.30 mg/dL 0.20-1.00 [facility] Comment on above: For patients on eltr ombopag therapy, use of Dimension [place] TBIL is not recommended. Chloride [Moles/Vol] 103 mmol/L 98-107 [facility] Glucose [Mass/Vol] 97 mg/dL 74-106 [facility] Potassium [Moles/Vol] 4.1 mmol/L 3.5-5.1 [facility] Protein [Mass/Vol] 8.0 g/dL 6.4-8.2 [facility] Sodium [Moles/Vol] 135 mmol/L 136-145 [facility] Laboratory - Chemistry and C hemistry - challengeOrdered By: Dr. Alberto on 08-04-2022 ALP [Catalytic activity/Vol] 76 U/L 45-117 [facility] ALT [Catalytic activity/Vol] 17 U/L 13-56 [facility] CO2 [Moles/Vol] 26.0 mmol/L 21.0-32.0 [facility] Globulin (S) [Mass/Vol] 4.5 g/dL 2.2-4.2 [facility] Urea nitrogen/Creatinine [Mass ratio] 21.0 mg/mg 10-20 [facility] No Panel InformationOrdered By: Dr. Alberto on 08-04-2022 Estimated GFR (MDRD) Amer 97 mL/min >60 [facility] Comment on above: GFR Calc Estimated GFR (MDRD) Non-Af Amer 81 mL/min >60 [facility] Comment on above: Non- GFR Calc Serum or plasma albumin abhijeet urement (mass/volume)Ordered By: Dr. Alberto on 08-04-2022 Albumin [Mass/Vol] 3.5 g/dL 3.2-5.0 [facility] Serum or plasma albumin/glob ulin mass ratioOrdered By: Dr. Alberto on 08-04-2022 Albumin/Globulin [Mass ratio] 0.8 {ratio} 0.9-2.4 [facility] Serum or plasma calcium abhijeet urement (mass/volume)Ordered By: Dr. Alberto on 08-04-2022 Calcium [Mass/Vol] 9.2 mg/dL 8.5-10.1 [facility] Serum or plasma creatinine m easurement (mass/volume)Ordered By: Dr. Alberto on 08-04-2022 Creatinine [Mass/Vol] 0.76 mg/dL 0.55-1.02 [facility] Comment on above: The validity of the calculated GFR & GFRAA in patients over 70 years has not been determined. Clinical correlation is essential. Serum or plasma urea nitroge n measurement (mass/volume)Ordered By: Dr. Alberto on 08-04-2022 Urea nitrogen [Mass/Vol] 16 mg/dL 7-18 [facility] Thin prep Papanicolaou smear with manual screeningOrdered By: Dr. Alberto on 08-04-2022 Thin prep Papanicolaou smear with manual screening 14 U/L 15-37 [facility] Thin prep Papanicolaou smear with manual screening 6 5-15 [facility] Absolute lymphocyte countOrd ered By: Dr. Alberto on 07-01-2022 Lymphocytes Auto (Unsp spec) [#/Vol] 2.89 10*3/uL 0.83-4.51 [facility] Basophil percentageOrdered B y: Dr. Alberto on 07-01-2022 Basophils/100 WBC (Bld) 0.5 % 0-1 [facility] Chloride [Moles/Vol] 105 mmol/L 98-107 [facility] Cholesterol [Mass/Vol] 202 mg/dL <200 [facility] Comment on above: <200 mg/dL Desirable 200-240 mg/dL Borderline >240 mg/dL High Risk Eosinophils/100 WBC (Bld) 1.1 % 0-5 [facility] Glucose [Mass/Vol] 113 mg/dL 74-106 [facility] Comment on above: Fasting Glucose resu lt from 100 to 125 mg/dL suggests IMPAIRED HOMEOSTASIS per A.D.A. criteria. Neutrophils (Bld) [#/Vol] 7.0 10*3/uL 2.0-7.7 [facility] Neutrophils/100 WBC (Bld) 64.9 % 47-70 [facility] Potassium [Moles/Vol] 4.2 mmol/L 3.5-5.1 [facility] Sodium [Moles/Vol] 138 mmol/L 136-145 [facility] Triglyceride [Mass/Vol] 152 mg/dL <199 [facility] [place] Comment on above: The drugs N-Acetylcy steine and Metamizole may falsely depress this assay.Serum Triglycerides Reference Interval Normal <150 mg/dL Borderline high 150 - 199 mg/dL High 200 - 499 mg/dL Very High > or = 500 mg/dL WBC (Bld) [#/Vol] 10.7 10*3/uL 4.4-11.0 [facility] Blood erythrocytes count (nu mber/volume)Ordered By: Dr. Alberto on 07-01-2022 RBC (Bld) [#/Vol] 4.76 10*6/uL 4.2-5.4 [facility] Blood hemoglobin measurement (mass/volume)Ordered By: Dr. Alberto on 07-01-2022 Hemoglobin (Bld) [Mass/Vol] 13.7 g/dL 12.0-15.0 [facility] Blood lymphocytes/100 leukoc ytesOrdered By: Dr. Alberto on 07-01-2022 Lymphocytes/100 WBC (Bld) 27.0 % 19-41 [facility] Blood monocytes/100 leukocyt esOrdered By: Dr. Alberto on 07-01-2022 Monocytes/100 WBC (Bld) 6.0 % 0-10 [facility] [place] Blood platelet mean volumeOr dered By: Dr. Alberto on 07-01-2022 Platelet mean volume (Bld) [Entitic vol] 10.0 fL 6.2-12.0 [facility] Determination of erythrocyte mean corpuscular volume (MCV)Ordered By: Dr. Alberto on 07-01-2022 MCV (RBC) [Entitic vol] 90.1 fL 81-99 [facility] [place] Hematocrit Auto (Bld) [Volum e fraction]Ordered By: Dr. Alberto on 07-01-2022 Hematocrit (Bld) [Volume fraction] 42.9 % 37-47 [facility] Laboratory - Chemistry and C hemistry - challengeOrdered By: Dr. Alberto on 07-01-2022 CO2 [Moles/Vol] 26.0 mmol/L 21.0-32.0 [facility] Urea nitrogen/Creatinine [Mass ratio] 15.3 mg/mg 10-20 [facility] Laboratory - Hematology and Cell countsOrdered By: Dr. Alberto on 07-01-2022 Erythrocyte distribution width (RBC) [Entitic vol] 46.6 fL 35.1-43.9 [facility] Erythrocyte distribution width (RBC) [Ratio] 14.1 % 11.6-14.6 [facility] Immature granulocytes/100 WBC (Bld) 0.500 % 0.0-0.9 [facility] Comment on above: IG% - Immature Granu locytes (promyelocytes, myelocytes and metamyelocytes) > 1% indicates that a LEFT SHIFT is Present. MCH (RBC) [Entitic mass] 28.8 pg 27.0-32.0 [facility] Nucleated RBC/100 WBC (Bld) [Ratio] 0 % 0-5 [facility] MCHC Auto (RBC) [Mass/Vol]Or dered By: Dr. Alberto on 07-01-2022 MCHC (RBC) [Mass/Vol] 31.9 g/dL 32-36 [facility] No Panel InformationOrdered By: Dr. Alberto on 07-01-2022 Estimated GFR (MDRD) Amer 104 mL/min >60 [facility] Comment on above: GFR Calc Estimated GFR (MDRD) Non-Af Amer 86 mL/min >60 [facility] Comment on above: Non- GFR Calc Platelets bldOrdered By: Dr. Alberto on 07-01-2022 Platelets (Bld) [#/Vol] 431 10*3/uL 150-450 [facility] Serum or plasma calcium abhijeet urement (mass/volume)Ordered By: Dr. Alberto on 07-01-2022 Calcium [Mass/Vol] 9.2 mg/dL 8.5-10.1 [facility] Serum or plasma cholesterol in HDL measurement (mass/volume)Ordered By: Dr. Alberto on 07-01-2022 Cholesterol in HDL [Mass/Vol] 46 mg/dL >40 [facility] Comment on above: The drugs N-Acetylcy steine and Metamizole may falsely depress this assay. Reference Range HDL <40 mg/dL Low HDL Cholesterol HDL >or= 60 mg/dL High HDL Cholesterol Serum or plasma cholesterol in VLDL measurement (mass/volume)Ordered By: Dr. Alberto on 07-01-2022 Cholesterol in VLDL [Mass/Vol] 30 mg/dL 5-40 [facility] Serum or plasma creatinine m easurement (mass/volume)Ordered By: Dr. Alberto on 07-01-2022 Creatinine [Mass/Vol] 0.72 mg/dL 0.55-1.02 [facility] Comment on above: The validity of the calculated GFR & GFRAA in patients over 70 years has not been determined. Clinical correlation is essential. Serum or plasma low density lipoprotein (LDL) cholesterol measurement (mass/volume)Ordered By: Dr. Alberto on 07-01-2022 Cholesterol in LDL [Mass/Vol] 126 mg/dL 0-130 [facility] Serum or plasma urea nitroge n measurement (mass/volume)Ordered By: Dr. Alberto on 07-01-2022 Urea nitrogen [Mass/Vol] 11 mg/dL 7-18 [facility] Thin prep Papanicolaou smear with manual screeningOrdered By: Dr. Alberto on 07-01-2022 Thin prep Papanicolaou smear with manual screening 7 5-15 [facility] Whole blood hemoglobin A1c/t otal hemoglobin ratio (mass fraction)Ordered By: Dr. Alberto on 07-01-2022 HbA1c (Bld) [Mass fraction] 5.9 % 3.8-5.6 [facility] Comment on above: Normal < 5.7 % Predi abetic 5.7 - 6.4 % Diabetic >or= 6.5 % Please note range changes. Basophil percentageon 2021 Chloride [Moles/Vol] 102 mmol/L 98-107 [facility] Work Phone: Glucose [Mass/Vol] 103 mg/dL 74-106 [facility] Work Phone: Comment on above: Fasting Glucose resu lt from 100 to 125 mg/dL suggests IMPAIRED HOMEOSTASIS per A.D.A. criteria. Potassium [Moles/Vol] 4.1 mmol/L 3.5-5.1 [facility] Work Phone: Sodium [Moles/Vol] 136 mmol/L 136-145 [facility] Work Phone: Laboratory - Chemistry and C hemistry - challengeon 11-23-2021 CO2 [Moles/Vol] 28.0 mmol/L 21.0-32.0 [facility] Work Phone: Urea nitrogen/Creatinine [Mass ratio] 21.0 mg/mg 10-20 [facility] Work Phone: No Panel Informationon 11-23 Estimated GFR (MDRD) Amer 67 mL/min >60 [facility] Work Phone: Comment on above: GFR Calc Estimated GFR (MDRD) Non-Af Amer 56 mL/min >60 [facility] Work Phone: Comment on above: Non- GFR Calc Serum or plasma calcium abhijeet urement (mass/volume)on 11-23-2021 Calcium [Mass/Vol] 9.0 mg/dL 8.5-10.1 [facility] Work Phone: Serum or plasma creatinine m easurement (mass/volume)on 11-23-2021 Creatinine [Mass/Vol] 1.05 mg/dL 0.55-1.02 [facility] Work Phone: Comment on above: The validity of the calculated GFR & GFRAA in patients over 70 years has not been determined. Clinical correlation is essential. Serum or plasma urea nitroge n measurement (mass/volume)on 11-23-2021 Urea nitrogen [Mass/Vol] 22 mg/dL 7-18 [facility] Work Phone: Thin prep Papanicolaou smear with manual screeningon 11-23-2021 Thin prep Papanicolaou smear with manual screening 6 5-15 [facility] Work Phone: Laboratory - Hematology and Cell countson 09-02-2021 HbA1c (Bld) [Mass fraction] 6.3 % 4.2-6.3 [facility] Work Phone: Basophil percentageon 2021 Chloride [Moles/Vol] 104 mmol/L 98-107 [facility] Work Phone: Glucose [Mass/Vol] 139 mg/dL 74-106 [facility] Work Phone: Comment on above: Fasting Glucose resu lt greater than or equal to 126 mg/dL suggests DIABETES MELLITUS per A.D.A. criteria. Potassium [Moles/Vol] 4.0 mmol/L 3.5-5.1 [facility] Work Phone: Sodium [Moles/Vol] 138 mmol/L 136-145 [facility] Work Phone: Laboratory - Chemistry and C hemistry - challengeon 08-24-2021 CO2 [Moles/Vol] 29.0 mmol/L 21.0-32.0 [facility] Work Phone: Urea nitrogen/Creatinine [Mass ratio] 18.4 mg/mg 10-20 [facility] Work Phone: No Panel Informationon 08-24 Estimated GFR (MDRD) Amer 69 mL/min >60 [facility] Work Phone: Comment on above: GFR Calc Estimated GFR (MDRD) Non-Af Amer 57 mL/min >60 [facility] Work Phone: Comment on above: Non- GFR Calc Serum or plasma calcium abhijeet urement (mass/volume)on 08-24-2021 Calcium [Mass/Vol] 8.7 mg/dL 8.5-10.1 [facility] Work Phone: Serum or plasma creatinine m easurement (mass/volume)on 08-24-2021 Creatinine [Mass/Vol] 1.03 mg/dL 0.55-1.02 [facility] Work Phone: Comment on above: The validity of the calculated GFR & GFRAA in patients over 70 years has not been determined. Clinical correlation is essential. Serum or plasma urea nitroge n measurement (mass/volume)on 08-24-2021 Urea nitrogen [Mass/Vol] 19 mg/dL 7- [facility] Work Phone: Thin prep Papanicolaou smear with manual screening08-24-2021 Thin prep Papanicolaou smear with manual screening 09-13 [facility] Work Phone: Vital Signs Date Time Vital Sign Value Performing Clinician Mykel gao 12-07-2024 08:10-0400 Body height 160.[address] Danie Alberto MD Work Phone: [facility] 12-07-2024 08:10-0400 Body mass index (BMI) [Ratio] 27.4 kg/m2 Dr. Danie Alberto MD Work Phone: [facility] 12-07-2024 08:10-0400 Body temperature 97.7 [degF] Dr. Danie Alberto MD Work Phone: [facility] 12-07-2024 08:10-0400 Body weight 70.[address] Danie Alberto MD Work Phone: [facility] 12-07-2024 08:10-0400 Diastolic blood pressure 58 mm[Hg] Dr. Danie Alberto MD Work Phone: [facility] 12-07-2024 08:10-0400 Heart rate 72 /min Dr. Danie Alberto MD Work Phone: [facility] 12-07-2024 08:10-0400 Respiratory rate 18 /min Dr. Danie Alberto MD Work Phone: [facility] 12-07-2024 08:10-0400 SaO2% (BldA) [Mass fraction] 97 % Dr. Danie Alberto MD Work Phone: [facility] 12-07-2024 08:10-0400 Systolic blood pressure 114 mm[Hg] Dr. Danie Alberto MD Work Phone: [facility] 11-14-2024 15:22-0400 Body temperature 98.6 [degF] Dr. Danie Alberto MD Work Phone: [facility] 11-14-2024 15:22-0400 Body weight 72.[address] aDnie Alberto MD Work Phone: [facility] 11-14-2024 15:22-0400 Diastolic blood pressure 85 mm[Hg] Dr. Danie Alberto MD Work Phone: [facility] 11-14-2024 15:22-0400 Heart rate 71 /min Dr. Danie Alberto MD Work Phone: [facility] 11-14-2024 15:22-0400 Respiratory rate 14 /min Dr. Danie Alberto MD Work Phone: [facility] 11-14-2024 15:22-0400 SaO2% (BldA) [Mass fraction] 94 % Dr. Danie Alberto MD Work Phone: [facility] 11-14-2024 15:22-0400 Systolic blood pressure 137 mm[Hg] Dr. Danie Alberto MD Work Phone: [facility] 09-06-2024 15:55-0400 Body height 160.[address] Danie Alberto MD Work Phone: [facility] 09-06-2024 15:55-0400 Body mass index (BMI) [Ratio] 27.8 kg/m2 Dr. Danie Alberto MD Work Phone: [facility] 09-06-2024 15:55-0400 Body temperature 96.4 [degF] Dr. Danie Alberto MD Work Phone: [facility] 09-06-2024 15:55-0400 Body weight 71.[address] Danie Alberto MD Work Phone: [facility] 09-06-2024 15:55-0400 Diastolic blood pressure 78 mm[Hg] Dr. Danie Alberto MD Work Phone: [facility] 09-06-2024 15:55-0400 Heart rate 69 /min Dr. Danie Alberto MD Work Phone: [facility] 09-06-2024 15:55-0400 Respiratory rate 16 /min Dr. Danie Alberto MD Work Phone: [facility] 09-06-2024 15:55-0400 SaO2% (BldA) [Mass fraction] 95 % Dr. Danie Alberto MD Work Phone: [facility] 09-06-2024 15:55-0400 Systolic blood pressure 124 mm[Hg] Dr. Danie Alberto MD Work Phone: [facility] 08-31-2023 13:59-0400 Body height 160.[address] Danie Alberto Work Phone: [facility] 08-31-2023 13:59-0400 Body mass index (BMI) [Ratio] 27.3 kg/m2 Dr. Danie Alberto Work Phone: [facility] 08-31-2023 13:59-0400 Body temperature 98.3 [degF] Dr. Danie Alberto Work Phone: [facility] 08-31-2023 13:59-0400 Body weight 70.[address] Danie Alberto Work Phone: [facility] 08-31-2023 13:59-0400 Diastolic blood pressure 70 mm[Hg] Dr. Danie Alberto Work Phone: [facility] 08-31-2023 13:59-0400 Heart rate 88 /min Dr. Danie Alberto Work Phone: [facility] 08-31-2023 13:59-0400 Respiratory rate 16 /min Dr. Danie Alberto Work Phone: [facility] 08-31-2023 13:59-0400 SaO2% (BldA) [Mass fraction] 95 % Dr. Danie Alberto Work Phone: [facility] 08-31-2023 13:59-0400 Systolic blood pressure 120 mm[Hg] Dr. Danie Alberto Work Phone: [facility] 05-18-2023 16:14-0500 Body mass index (BMI) [Ratio] 27.4 kg/m2 Dr. Danie Alberto Work Phone: [facility] 05-18-2023 16:14-0500 Body temperature 97.1 [degF] Dr. Danie Alberto Work Phone: [facility] 05-18-2023 16:14-0500 Body weight 70.[address] Danie Alberto Work Phone: [facility] 05-18-2023 16:14-0500 Diastolic blood pressure 70 mm[Hg] Dr. Danie Alberto Work Phone: [facility] 05-18-2023 16:14-0500 Heart rate 70 /min Dr. Danie Alberto Work Phone: [facility] 05-18-2023 16:14-0500 SaO2% (BldA) [Mass fraction] 99 % Dr. Danie Alberto Work Phone: [facility] 05-18-2023 16:14-0500 Systolic blood pressure 110 mm[Hg] Dr. Danie Alberto Work Phone: [facility] 02-14-2023 15:50-0400 Diastolic blood pressure 86 mm[Hg] Dr. Danie Alberto Work Phone: [facility] 02-14-2023 15:50-0400 Systolic blood pressure 132 mm[Hg] Dr. Danie Alberto Work Phone: [facility] 02-14-2023 15:16-0400 Body height 160.[address] Danie Alberto Work Phone: [facility] 02-14-2023 15:16-0400 Body mass index (BMI) [Ratio] 29.2 kg/m2 Dr. Danie Alberto Work Phone: [facility] 02-14-2023 15:16-0400 Body temperature 98.6 [degF] Dr. Danie Alberto Work Phone: [facility] 02-14-2023 15:16-0400 Body weight 74.[address] Danie Alberto Work Phone: [facility] 02-14-2023 15:16-0400 Heart rate 77 /min Dr. Danie Alberto Work Phone: [facility] 02-14-2023 15:16-0400 Respiratory rate 16 /min Dr. Danie Alberto Work Phone: [facility] 02-14-2023 15:16-0400 SaO2% (BldA) [Mass fraction] 96 % Dr. Danie Alberto Work Phone: [facility] 07-05-2022 08:23-0500 Body height 160.[address] Danie Alberto Work Phone: [facility] 07-05-2022 08:23-0500 Body mass index (BMI) [Ratio] 26.8 kg/m2 Dr. Danie Alberto Work Phone: [facility] 07-05-2022 08:23-0500 Body temperature 97.5 [degF] Dr. Danie Alberto Work Phone: [facility] 07-05-2022 08:23-0500 Body weight 68.[address] Danie Alberto Work Phone: [facility] 07-05-2022 08:23-0500 Diastolic blood pressure 86 mm[Hg] Dr. Danie Alberto Work Phone: [facility] 07-05-2022 08:23-0500 Heart rate 67 /min Dr. Danie Alberto Work Phone: [facility] 07-05-2022 08:23-0500 Respiratory rate 16 /min Dr. Danie Alberto Work Phone: [facility] 07-05-2022 08:23-0500 SaO2% (BldA) [Mass fraction] 97 % Dr. Danie Alberto Work Phone: [facility] 07-05-2022 08:23-0500 Systolic blood pressure 132 mm[Hg] Dr. Danie Alberto Work Phone: [facility] 09-02-2021 08:03-0400 Body height 160.[address] Danie Alberto Work Phone: [facility] Work Phone: 09-02-2021 08:03-0400 Body mass index (BMI) [Ratio] 29.2 kg/m2 Dr. Danie Alberto Work Phone: [facility] Work Phone: 09-02-2021 08:03-0400 Body temperature 98 [degF] Dr. Danie Alberto Work Phone: [facility] Work Phone: 09-02-2021 08:03-0400 Body weight 74.[address] Danie Alberto Work Phone: [facility] Work Phone: 09-02-2021 08:03-0400 Diastolic blood pressure 80 mm[Hg] Dr. Danie Alberto Work Phone: [facility] Work Phone: 09-02-2021 08:03-0400 Heart rate 75 /min Dr. Danie Alberto Work Phone: [facility] Work Phone: 09-02-2021 08:03-0400 Respiratory rate 16 /min Dr. Danie Alberto Work Phone: [facility] Work Phone: 09-02-2021 08:03-0400 SaO2% (BldA) [Mass fraction] 96 % Dr. Danie Alberto Work Phone: [facility] Work Phone: 09-02-2021 08:03-0400 Systolic blood pressure 122 mm[Hg] Dr. Danie Alberto Work Phone: [facility] Work Phone: 05-20-2021 16:02-0500 Body height 160.[address] Danie Alberto Work Phone: [facility] Work Phone: 05-20-2021 16:02-0500 Body mass index (BMI) [Ratio] 30.2 kg/m2 Dr. Danie Alberto Work Phone: [facility] Work Phone: 05-20-2021 16:02-0500 Body temperature 97.6 [degF] Dr. Danie Alberto Work Phone: [facility] Work Phone: 05-20-2021 16:02-0500 Body weight 77.[address] Danie Alberto Work Phone: [facility] Work Phone: 05-20-2021 16:02-0500 Diastolic blood pressure 84 mm[Hg] Dr. Danie Alberto Work Phone: [facility] Work Phone: 05-20-2021 16:02-0500 Heart rate 74 /min Dr. Danie Alberto Work Phone: [facility] Work Phone: 05-20-2021 16:02-0500 Respiratory rate 14 /min Dr. Danie Alberto Work Phone: [facility] Work Phone: 05-20-2021 16:02-0500 SaO2% (BldA) [Mass fraction] 96 % Dr. Danie Alberto Work Phone: [facility] Work Phone: 05-20-2021 16:02-0500 Systolic blood pressure 156 mm[Hg] Dr. Danie Alberto Work Phone: [facility] Work Phone: Encounters Encounter Date Encounter Type Care Provider Facility Start: 12-20-2024 Non-patient / Non-visit Dr. Pilo ZHANG -[facility] Start: 12-20-2024 End: 12-20-[address] Danie Alberto MD Work Phone: -Cardiovascular Services Start: 12-20-2024 End: 12-20-2024 Patient encounter procedure Farida CHANCE -Cardiovascular Services Work Phone: Start: 12-20-2024 End: 12-20-2024 ambulatory Farida Snow Facility:[facility] Start: 12-07-2024 End: 12-07-[address] Danie Alberto MD -[facility] Work Phone: Start: 12-07-2024 End: 12-07-[address] Danie Alberto MD Work Phone: -[facility] Start: 11-29-2024 End: 11-29-[address] Danie Alberto MD Work Phone: -[facility] Start: 11-29-2024 End: 11-29-2024 Patient encounter procedure Farida Snow PA -Cat Scan [facility] Work Phone: Start: 11-29-2024 End: 11-29-2024 ambulatory Farida Snow Facility:[facility] Start: 11-14-2024 End: 11-14-2024 Patient encounter procedure Farida CHANCE -[facility] Work Phone: Start: 11-14-2024 End: 11-14-[address] Danie Alberto MD Work Phone: -[facility] Start: 10-09-2024 Non-patient / Non-visit Dr. Pilo ZHANG -[facility] Work Phone: Start: 10-09-[address] Aron Alberto MD -Cat Scan [facility] Work Phone: Start: 10-09-2024 ambulatory Bravo Solomon Facility:[facility] Start: 09-13-2024 End: 09-13-[address] Danie Alberto MD Work Phone: [facility] Work Phone: Start: 09-13-2024 End: 09-13-[address] Danie Alberto MD -Outpatient Bone Densitometry Work Phone: Start: 09-13-2024 End: 09-13-2024 ambulatory [facility] Facility:[facility] Start: 09-10-2024 Encounter for genera l adult medical examination without abnormal findings [facility] Start: 09-06-2024 End: 09-06-[address] Danie Alberto MD -[facility] Work Phone: Start: 09-06-2024 End: 09-06-2024 ambulatory Danie Alberto Facility:[facility] Start: 09-04-2024 End: 09-04-[address] Danie Alberto MD Work Phone: [facility] Work Phone: Start: 09-04-2024 End: 09-04-[address] Danie Alberto MD -Laboratory Work Phone: Start: 09-04-2024 End: 09-04-2024 ambulatory [facility] Facility:[facility] Start: 05-09-2024 End: 05-09-2024 ambulatory [facility] Facility:[facility] Start: 05-09-2024 End: 05-09-2024 ambulatory [facility] Facility:[facility] Start: 01-04-2024 End: 01-04-2024 ambulatory [facility] Facility:[facility] Start: 08-31-2023 End: 08-31-[address] Danie Alberto Work Phone: [facility] Work Phone: Start: 08-29-2023 End: 08-29-[address] Danie Alberto Work Phone: [facility] Work Phone: Start: 08-29-2023 End: 08-29-[address] Danie Alberto Work Phone: [facility]-Laboratory Work Phone: Start: 05-18-2023 End: 05-18-[address] Danie Alberto Work Phone: [facility] Work Phone: Start: 05-11-2023 End: 05-11-[address] Danie Alberto Work Phone: [facility] Work Phone: Start: 05-11-2023 End: 05-11-[address] Danie Alberto Work Phone: [facility]-Laboratory Work Phone: Start: 02-14-2023 End: 02-14-[address] Danie Alberto Work Phone: [facility] Work Phone: Start: 02-14-2023 End: 02-14-[address] Danie Alberto Work Phone: [facility] Work Phone: Start: 08-04-2022 End: 08-04-[address] Danie Alberto Work Phone: [facility] Work Phone: Start: 08-04-2022 End: 08-04-[address] Danie Alberto Work Phone: [facility]-Laboratory Start: 07-22-2022 End: 07-22-[address] Danie Alberto Work Phone: [facility]-Outpatient Bone Densitometry Start: 07-05-[address] Danie Alberto Work Phone: [facility] Start: 07-05-2022 End: 07-05-2022 Encounter for general adult medical examination without abnormal findings Dr. Danie Alberto Work Phone: [facility] Start: 07-05-2022 End: 07-05-[address] Danie Alberto Work Phone: [facility] Start: 07-01-2022 End: 07-01-[address] Danie Alberto Work Phone: [facility] Work Phone: Start: 07-01-2022 End: 07-01-[address] Danie Alberto Work Phone: [facility]-Laboratory Start: 11-23-2021 End: 11-23-[address] Danie Alberto Work Phone: [facility]-Laboratory Start: 09-02-2021 End: 09-02-[address] Danie Alberto Work Phone: [facility] Start: 08-24-2021 End: 08-24-[address] Danie Alberto Work Phone: [facility]-Laboratory Start: 05-20-2021 End: 05-20-[address] Danie Alberto Work Phone: [facility] Procedures Date Procedure Procedure Detail Performing Clinician Start: 11-29-2024 CT of thorax, abdome n and pelvis with contrast Dr. Danie Alberto MD Work Phone: Start: 10-09-2024 CT angiography of co ronary arteries Dr. Danie Alberto MD Work Phone: Start: 09-13-2024 Dual energy X-ray absorptiometry Dr. Danie Alberto MD Work Phone: Start: 07-22-2022 Dual energy X-ray absorptiometry Dr. Danie Alberto Work Phone: Plan of Treatment Date Care Activity Detail Author Start: 09-13-2024 DXA Bone [Mass/Area] Bone density [facility] Blood chemistry [facility] CBC W Auto Different ial panel - Blood [facility] Comprehensive metabo lic 1999 panel - Serum or Plasma [facility] CT angiography of co ronary arteries [facility] DXA Bone [Mass/Area] Bone density [facility] Hemoglobin A1c/Hemog lobin.total in Blood [facility] Hemoglobin A1c/Hemog lobin.total in Blood [facility] Lipid 1996 panel - S mikael or Plasma [facility] Vitamin D, 25-hydroxy measurement [facility] Immunizations Immunization Date Immunization Notes Care Provider Fa alberto 03-02-2015 tetanus toxoid, redu veronika diphtheria toxoid, and acellular pertussis vaccine, adsorbed Dr. Danie Alberto Work Phone: [facility] Payers Date Payer Category Payer Unknown 2024 Self-pay [id number] 2023 Medicare [id number] 533 [id number] 2023 Unknown [id number] 2016 Unknown [id number] Unknown [id number] 2.16.8 [id number] Unknown [id number] 2.16.8 [id number] Unknown [id number] 2.16.8 [id number] Unknown [id number] 2.16.8 [id number] Unknown [id number] 2.16.8 [id number] Unknown [id number] 2.16.8 [id number] Unknown [id number] 2.16.8 [id number] Unknown [id number] 2.16.8 [id number] Unknown [id number] 2.16.8 [id number] Unknown [id number] 2.16.8 [id number] Unknown [id number] 2.16.8 [id number] Unknown [id number] 2.16.8 [id number] Unknown [id number] 2.16.8 [id number] Social History Date Type Detail Facility Start: 05-20-2021 End: 05-18-2023 Tobacco smoking status NHIS Unknown if ever smoked [facility] Start: 08-05-2016 None [facility] Start: 08-05-2016 Non-smoker [facility] Start: 1955 Sex Assigned At Female W [facility] Start: 05-18-2023 Tobacco smoking stat us NHIS Never smoked tobacco (finding) [facility] Radiology Diagnostic study note 11-29-2024 Note Date & Type Note Facility 11-29-2024 Radiology Diagnostic study note [facility] Imaging Services [address] [place] [address] CTA Chst, Abd, Pel W and/or WO MR#: [id number] Acct: [id number] Name: TATY YIN Rep #: [id number] : 1955 F 69 From: Hugo Marroquin MD PCP: Dr. Danie Alberto MD Status: R EG CLI Study:CTA Chst, Abd, Pel W and/or WO Date of Exam: 11/29/24 Exam# [id number] Ordering Dr: Kadeem Snow PROCEDURE: CTA CHST, ABD, PEL W AND/OR WO 11/29/2024 REASON FOR EXAM: ASC AORTIC ANEURYSM, EVAL FOR THORACOABDOMINAL TECHNIQUE: Chest and abdomen CT with intravenous contrast. Coronal and Sagittal reconstruction series were provided. One or more dose reduction techniques were used (e.g., Automated exposure control, adjustment of the mA and/or kV according to patient size, use of iterative reconstruction technique. PATIENT PREPARATION: Per protocol ORAL CONTRAST TYPE: None. CONTRAST: Isovue 370 VOLUME: 100 mL RADIATION DOSE SUMMARY: CTDlvol: 12.2 mGy DLP: 838.94 mGycm COMPARISON: Prior CT scan of the chest dated October 09, 2024. FINDINGS: CT CHEST: Hardware: None Lymph nodes: No significant lymph node is seen. Heart and Vasculature: Aneurysmal dilatation of the ascending thoracic aorta with a transverse dimension of 45.4 mm. No coronary artery calcification is seen. Lungs and Airways: Mild degree of increased linear markings scattered throughoutboth lungs suggestive of scarring. No focal mass lesion or pulmonary infiltrate is seen. Pleura: No pleural effusion. CT ABDOMEN: Liver: Normal size. No mass. Gallbladder: No evidence of gallstones. Spleen: Normal size. Pancreas: Normal size without evidence of mass surrounding inflammation or ductal dilation. Adrenals: There is hyperplasia of the left adrenal gland. Kidneys: 1.5 cm cyst in the upper medial portion of the left kidney. No evidence of hydronephrosis. 1.6 cm cyst in the posterior medial aspect of the right kidney. Bowel: Sigmoid diverticulosis without radiographic evidence of diverticulitis. Lymph nodes: Unremarkable. Vasculature: Mild atherosclerotic plaque of the abdominal aorta. No evidence ofabdominal aortic aneurysm. Peritoneum / Retroperitoneum: Unremarkable Bones: Degenerative changes of the spine. CT/CTA Chst, Abd, Pel W and/or WO IMPRESSION: Coronary artery calcification (CAC) is is absent Dilatation of the ascending thoracic aorta with a transverse dimension of 45.4 mm. No evidence of abdominal aortic aneurysm. Mild linear scarring in both lungs. Small bilateral renal cysts. Reading Location: [id number] CC: ROBSON Schrader; Dr. Danie Alberto MD ~ Pediatric Surgeon: Signed [facility] Evaluation note 09-06-2024 Note Date & Type Note Facility 09-06-2024 Evaluation note Diagnosis Onset Date Resolution Borderline type 2 diabetes mellitus chronic September 06, 2024 3:50pm Essential hypertension chronic Ma y 2024 3:50pm Osteoporosis chronic September 06 3:50pm [facility] Work Phone: Evaluation note 09-06-2024 Note Date & Type Note Facility 09-06-2024 Evaluation note Diagnosis Onset Date Resolution Borderline type 2 diabetes mellitus chronic September 06, 2024 3:50pm Essential hypertension chronic Ma y 2024 3:50pm Osteoporosis chronic September 06 3:50pm Aortic aneurysm acute October 3:07pm [facility] Work Phone: Evaluation note 09-06-2024 Note Date & Type Note Facility 09-06-2024 Evaluation note Diagnosis Onset Date Resolution Borderline type 2 diabetes mellitus chronic September 06, 2024 3:50pm Essential hypertension chronic Ma 2024 3:50pm Osteoporosis chronic September 06 3:50pm Aortic aneurysm acute October 3:07pm Thoracic ascending aortic aneurysm acute December 07, 2024 8:05am Borderline type 2 diabetes mellitus chronic December 07 8:05am Essential hypertension chronic Au 2024 8:05am Osteoporosis chronic December 07, 2024 8:05am [facility] Work Phone: Evaluation note Note Date & Type Note Facility Evaluation note Diagnosis Onset Date Essential hypertension acute Obesity (BMI 30.0-34.9) acut e [facility] Work Phone: Evaluation note Note Date & Type Note Facility Evaluation note Diagnosis Onset Date Hyperglycemia acute Essential hypertension chron [facility] Work Phone: Evaluation note Note Date & Type Note Facility Evaluation note Diagnosis Onset Date Health care maintenance acut e Borderline type 2 diabetes mellitus chronic Essential hypertension chron ic Venous insufficiency of both lower extremities chronic [facility] Work Phone: Evaluation note Note Date & Type Note Facility Evaluation note Diagnosis Onset Date Osteoporosis acute Borderline type 2 diabetes mellitus chronic Essential hypertension chron [facility] Work Phone: Evaluation note Note Date & Type Note Facility Evaluation note Diagnosis Onset Date Borderline type 2 diabetes mellitus chronic Essential hypertension chron ic Osteoporosis chronic Borderline type 2 diabetes mellitus chronic Essential hypertension chron ic Osteoporosis chronic [facility] Work Phone: Reason for referral (narrative) Note Date & Type Note Facility Reason for referral (narrative) No reason for referral information available [facility] Work Phone: Chief Complaint and Reason for Visit Chief Complaint 1 M FU eorder Reason for Visit Essential hypertensi on Obesity (BMI 30.0-34.9) Chief Complaint eorder 3 M FU E ORDER Reason for Visit Hyperglycemia Essential hypertension Chief Complaint E ORDERS 4 M FU Reason for Visit Health care maintena nce Borderline type 2 diabetes mellitus Essential hypertension Venous insufficiency of both lower extremities Chief Complaint E ORDERS 4 M FU POST MENOPAUSAL E ORDER Reason for Visit Health care karma matutee Borderline type 2 diabetes mellitus Essential hypertension [...] Chief Complaint Admit Date need order-per pt oleghe should have sen t it September 04, 2024 11:25am 4 M FU September 06, 2024 3:50pm Reason for Visit Admit Date Borderline type 2 diabetes mellitus September 06, 2024 3:50pm Essential hypertension September 06, 2024 3:5 0pm Osteoporosis September 06, 2024 3:50pm Chief Complaint Admit Date need order-per pt oleghe should have sen t it September 04, 2024 11:25am 4 M FU September 06, 2024 3:50pm Osteoporosis September 13, 2024 2:35p m Chief Complaint Admit Date need order-per pt olee should have sen t it September 04, 2024 11:25am 4 M FU September 06, 2024 3:50pm Osteoporosis September 13, 2024 2:35p m SCREENING October 09, 2024 7:[address] CALCIUM SCORING October 09, 2024 7:01 am AAA November 14, 2024 3:07 pm Chief Complaint Admit Date need order-per pt olee should have sen t it September 04, 2024 11:25am 4 M FU September 06, 2024 3:50pm Osteoporosis September 13, 2024 2:35p m SCREENING October 09, 2024 7:[address] CALCIUM SCORING October 09, 2024 7:01 am AAA November 14, 2024 3:07 pm asc aortic aneurysm, eval for thoracoabd ominal November 29, 2024 7:21am 3 m fu December 07, 2024 8:0 5am Reason for Visit Admit Date Borderline type 2 diabetes mellitus September 06, 2024 3:50pm Essential hypertension September 06, 2024 3:5 0pm Osteoporosis September 06, 2024 3:50pm Aortic aneurysm November 14, 2024 3:07 pm Reason for Visit Admit Date Borderline type 2 diabetes mellitus September 06, 2024 3:50pm Essential hypertension September 06, 2024 3:5 0pm Osteoporosis September 06, 2024 3:50pm Aortic aneurysm November 14, 2024 3:07 pm Thoracic ascending aortic aneurysm Augus t 2024 8:05am Borderline type [address] 2024 8:05am Essential hypertension December 07, 2024 8:05am Osteoporosis December 07, 2024 8:0 5am Chief Complaint Admit Date need order-per pt dolly should have sen t it September 04, 2024 11:25am 4 M FU September 06, 2024 3:50pm Osteoporosis September 13, 2024 2:35p m SCREENING October 09, 2024 7:[address] CALCIUM SCORING October 09, 2024 7:01 am AAA November 14, 2024 3:07 pm asc aortic aneurysm, eval for thoracoabd ominal November 29, 2024 7:21am 3 m fu December 07, 2024 8:0 5am ANEURYSM OF THE ASCENDING AORTA, W/O RUP TURE December 20, 2024 1:45pm Family History No Family History Records Found [...] No July 09, 2019 6:26pm Power of Residence Supervisor No July 08 0 6:26pm Advance Directive Response Recorded Date/ Time Living Will No July 09, 2019 5:26pm Power of Residence Supervisor No July 08 0 5:26pm Summary Purpose [...] November 14, 2024 End: November 14, 2024 Team Status: Active Member Role/Relationship Status Dates Dr. Danie Alberto MD Primary Care Provider Active Start: November 29, 2024 ROBSON Schrader Attending Provider Active Star t: November 29, 2024 ROBSON Schrader Referring Provider Active Star t: November 29, 2024 Team Status: Inactive Member Role/Relationship Status Dates Dr. Danie Alberto MD Primary Care Provider Active Start: December 07, 2024 End: December 07, 2024 Dr. Danie Alberto MD Attending Provider Active Start: December 07, 2024 End: December 07, 2024 Dr. Danie Alberto MD Referring Provider Active Start: December 07, 2024 End: December 07, 2024 Team Status: Inactive Member Role/Relationship Status Dates Dr. Danie Alberto MD Primary Care Provider Active Start: November 29, 2024 End: November 29, 2024 ROBSON Schrader Attending Provider Active Star t: November 29, 2024 End: November 29, 2024 ROBSON Schrader Referring Provider Active Star t: November 29, 2024 End: November 29, 2024 Team Status: Inactive Member Role/Relationship Status Dates Dr. Danie Alberto MD Primary Care Provider Active Start: December 20, 2024 End: December 20, 2024 ROBSON Schrader Attending Provider Active Star t: December 20, 2024 End: December 20, 2024 ROBSON Schrader Referring Provider Active Star t: December 20, 2024 End: December 20, 2024 Team Status: Active Member Role/Relationship Status Dates Dr. Danie Alberto MD Primary Care Provider Active Start: December 20, 2024 Dr. Bravo Solomon MD Attending Provider Active S tart: December 20, 2024 INFORMATION SOURCE (unrecogn ized section and content) DATE CREATED AUTHOR 12/30/2024 [facility] FOR RECORDS PERTAINING TO PATIENTS WHO ARE [...] BE BASED ON THE PRIMARY CLINICAL RECORDS. [employer] [facility]. provides no warranty or guarantee of the accuracy or completeness of information in this document.
[2025-05-01 14:37] LABS: Hematocrit 40.5 % (37-47); Hemoglobin 13.4 g/dL (12.0-15.0); Immature Granulocytes Count 0.050 X10^3/uL (0.0-0.0); Mean Corp Hgb Conc 33.1 g/dL (32-36); Mean Corpuscular Volume 90.8 fL (81-99); Mean Platelet Vol. 9.6 fl (6.2-12.0); NRBC Flagged by Analyzer 0 % (0-5); Platelet Count 354 K/mm3 (150-450); RBC Distribution Width CV 13.8 % (11.6-14.6); RBC Distribution Width SD 46.6 fl (35.1-43.9); Red Blood Count 4.46 M/mm3 (4.2-5.4); White Blood Count 9.8 K/mm3 (4.4-11.0)
[2025-05-01 15:01] LABS: AST(SGOT) 20 U/L (<=31); Alanine Aminotransfer ALT/SGPT 17 U/L (<=34); Albumin, Serum 4.1 g/dL (3.4-4.8); Alkaline Phosphatase 43 U/L (35-104); Anion Gap 10 (7-18); BUN 14 mg/dL (4-19); BUN/Creat Ratio 18.4 RATIO (10-20); Calcium,Total 9.1 mg/dL (7.6-11.0); Carbon Dioxide 24.9 mmol/L (20.0-29.0); Chloride 102 mmol/L (96-106); Cholesterol 212 mg/dL (<=200); Globulin 3.3 g/dL (2.2-4.2); Glucose 110 mg/dL (70-99); Low Density Lipoprotein Calc. 131 mg/dL; Potassium 4.1 mmol/L (3.5-5.1); Triglycerides 186 mg/dL; Very Low Density Lipoprotein 37 mg/dL (5-40); cholesterol:hdl ratio screen 4.43
[2025-05-03 17:45] LABS: Vitamin D,25 Hydroxy 56.3 ng/mL (30-100)
== END | disposition home or self-care (01) ==
LOC: LAB 13:57
PROVIDERS: PCP Internal Medicine; Referring Provider Internal Medicine; Visit Provider Internal Medicine
DX: I10 Essential (primary) hypertension (principal); M81.0 Age-related osteoporosis without current pathological fracture; R73.03 Prediabetes
CPT/HCPCS: 36415; 80053; 80061; 82306; 83036; 85025